=== PATIENT | female | born 1955 | race Caucasian/White ===

== ENCOUNTER 2020-12-05 09:40 | Emergency (ER) | payer OTHER ==
[~2020-12-05] VITALS: Ht 167.6 cm; Wt 36.3 kg
[2020-12-05] MEDS ORDERED: FOLI1 PO (10:49)
[2020-12-05] MEDS ORDERED: MULVITA PO (10:49)
[2020-12-05 10:54] LABS: BASOPHILS ABSOLUTE AUTO 0.04 K/mm3 (0.00-0.23); BASOPHILS PERCENT AUTO 0 % (0-2); EOSINOPHILS PERCENT AUTO 0 % (0-6); Hematocrit 35.6 % (33.0-51.0); Hemoglobin 11.9 g/dL (11.5-16.0); IMMATURE GRAN ABSOLUTE AUTO 0.03 K/mm3 (0.00-0.10); IMMATURE GRAN PERCENT AUTO 0 % (0-1); LYMPHOCYTES ABSOLUTE AUTO 1.07 K/mm3 (0.84-5.20); LYMPHOCYTES PERCENT AUTO 9 % (21-46); MONOCYTES ABSOLUTE AUTO 0.95 K/mm3 (0.16-1.47); MONOCYTES PERCENT AUTO 8 % (4-13); Mean Corpuscular HGB 33.9 pg (26.0-34.0); Mean Corpuscular HGB Conc 33.4 g/dL (31.5-36.5); Mean Corpuscular Volume 101 fL (80-100); Mean Platelet Volume 8.4 fL (9.1-12.4); NEUTROPHILS ABSOLUTE AUTO 9.35 K/mm3 (1.96-9.15); NEUTROPHILS PERCENT AUTO 82 % (41-73); Platelet Count 345 K/mm3 (150-400); RDW Coefficient Variation 14.9 % (11.7-14.2); RDW Standard Deviation 56.3 fL (35.1-46.3); Red Blood Cell Count 3.51 M/mm3 (3.80-5.20); White Blood Cell Count 11.44 K/mm3 (4.00-11.30)
[2020-12-05 11:17] LABS: Alanine Aminotransfer (ALT/SGP 20 U/L (12-78); Albumin, Blood 3.1 g/dL (3.4-5.0); Albumin/Globulin Ratio 0.6 (0.8-1.8); Alk Phos 144 U/L (50-136); Anion Gap 9 mmol/L (6-16); Aspartate Aminotrans (AST/SGOT 23 U/L (12-37); Bilirubin, Total 0.4 mg/dL (0.1-1.0); Blood Urea Nitrogen 14 mg/dL (8-24); Bun/Creatinine Ratio 33.9 (12.0-20.0); CO2, Blood 28 mmol/L (21-32); Calcium, Blood 8.8 mg/dL (8.5-10.1); Chloride, Blood 101 mmol/L (98-108); Creatinine, Blood 0.41 mg/dL (0.40-1.00); Ethanol (Alcohol), Blood, Med <3 mg/dL; Globulin, Blood 5.1 g/dL (2.2-4.0); Glomerular Filtration Rate >60 (60-); Glucose, Blood 103 mg/dL (70-99); Potassium, Blood 3.6 mmol/L (3.5-5.5); Sodium, Blood 138 mmol/L (136-145); Total Protein, Blood 8.2 g/dL (6.4-8.2); Troponin I <0.015 ng/mL (0.000-0.040)
[2020-12-05 11:40] LABS: International Normalized Ratio 0.96; Prothrombin Time Results 10.3 Sec (9.7-11.5)
[2020-12-05 14:47] LABS: Source, Urine Clean Catch
[2020-12-05 14:58] LABS: Appearance, Urine Clear (Clear); Bilirubin, Urine Neg (Neg); Blood, Urine 1+ (Neg); Color, Urine Yellow (P-Yellow); Glucose Qualitative, Urine Neg (Neg); Ketones, Urine Neg (Neg); Leukocyte Esterase, Urine Neg (Neg); Nitrite, Urine Neg (Neg); Protein, Urine 3+ (Neg); Urobilinogen, Urine NORM (Normal)
[2020-12-05 15:22] LABS: Bacteria Few /hpf; Squamous Epithelial Cells Rare /hpf (Few); White Blood Cells, Urine 0-2 /hpf (0-5)
[2020-12-05] MEDS ORDERED: CEPH500 PO (16:09)
== END 2020-12-05 16:25 | disposition home or self-care (01) ==
LOC: ER 09:40
PROVIDERS: Emergency Medicine
DX: S09.90XA Unspecified injury of head, initial encounter (principal); L03.116 Cellulitis of left lower limb; E46 Unspecified protein-calorie malnutrition; F10.10 Alcohol abuse, uncomplicated; F17.200 Nicotine dependence, unspecified, uncomplicated; Z88.0 Allergy status to penicillin; Z88.6 Allergy status to analgesic agent; W19.XXXA Unspecified fall, initial encounter
CPT/HCPCS: 36415; 70450; 71045; 72125; 73620; 80053; 81001; 82140; 83605; 83880; 84484; 85025; 85610; 86140; 87040; 96365; 96375; 99285-25; G0480; J2060; J3370; J7030

== ENCOUNTER 2021-03-06 04:25 | Day surgery (SDC) | payer OTHER ==
[~2021-03-06 04:25] MED LIST: CEPH500 PO; FOLI1 PO; MULVITA PO
[2021-03-07] MEDS ORDERED: MELO7.5 (17:02)
[2021-03-07] MEDS ORDERED: MOBIC15 MG PO (17:58)
== END 2021-03-06 22:48 | disposition home or self-care (01) ==
LOC: WOUND 04:25
DX: L97.522 Non-pressure chronic ulcer of other part of left foot with fat layer exposed (principal); L97.822 Non-pressure chronic ulcer of other part of left lower leg with fat layer exposed; L03.032 Cellulitis of left toe; L03.116 Cellulitis of left lower limb; R53.81 Other malaise; R63.4 Abnormal weight loss; R77.0 Abnormality of albumin; F17.210 Nicotine dependence, cigarettes, uncomplicated; Z68.1 Body mass index [BMI] 19.9 or less, adult
CPT/HCPCS: 87070; 87075; 87147; 87205; A9270; G0463

== ENCOUNTER 2021-03-06 16:47 | Emergency (ER) | payer OTHER ==
[~2021-03-06] VITALS: Ht 170.2 cm; Wt 54.4 kg
[2021-03-06 17:57] LABS: BASOPHILS ABSOLUTE AUTO 0.02 K/mm3 (0.00-0.23); BASOPHILS PERCENT AUTO 0 % (0-2); EOSINOPHILS ABSOLUTE AUTO 0.01 K/mm3 (0.00-0.68); EOSINOPHILS PERCENT AUTO 0 % (0-6); Hemoglobin 13.3 g/dL (11.5-16.0); IMMATURE GRAN ABSOLUTE AUTO 0.06 K/mm3 (0.00-0.10); IMMATURE GRAN PERCENT AUTO 1 % (0-1); LYMPHOCYTES ABSOLUTE AUTO 1.11 K/mm3 (0.84-5.20); LYMPHOCYTES PERCENT AUTO 10 % (21-46); MONOCYTES ABSOLUTE AUTO 0.71 K/mm3 (0.16-1.47); MONOCYTES PERCENT AUTO 7 % (4-13); Mean Corpuscular HGB 36.1 pg (26.0-34.0); Mean Corpuscular Volume 103 fL (80-100); Mean Platelet Volume 8.1 fL (9.1-12.4); NEUTROPHILS ABSOLUTE AUTO 8.86 K/mm3 (1.96-9.15); NEUTROPHILS PERCENT AUTO 82 % (41-73); Platelet Count 413 K/mm3 (150-400); RDW Standard Deviation 68.7 fL (35.1-46.3); Red Blood Cell Count 3.68 M/mm3 (3.80-5.20); White Blood Cell Count 10.77 K/mm3 (4.00-11.30)
[2021-03-06 18:32] LABS: Alanine Aminotransfer (ALT/SGP 33 U/L (12-78); Albumin, Blood 2.5 g/dL (3.4-5.0); Albumin/Globulin Ratio 0.5 (0.8-1.8); Alk Phos 157 U/L (50-136); Anion Gap 19 mmol/L (6-16); Aspartate Aminotrans (AST/SGOT 45 U/L (12-37); Bilirubin, Total 0.4 mg/dL (0.1-1.0); Blood Urea Nitrogen 17 mg/dL (8-24); Bun/Creatinine Ratio 22.9 (12.0-20.0); CO2, Blood 17 mmol/L (21-32); Calcium, Blood 8.8 mg/dL (8.5-10.1); Chloride, Blood 95 mmol/L (98-108); Creatinine, Blood 0.74 mg/dL (0.40-1.00); Globulin, Blood 5.1 g/dL (2.2-4.0); Glomerular Filtration Rate >60 (60-); Glucose, Blood 78 mg/dL (70-99); Potassium, Blood 3.1 mmol/L (3.5-5.5); Sodium, Blood 131 mmol/L (136-145); Total Protein, Blood 7.6 g/dL (6.4-8.2)
[2021-03-07] MEDS ORDERED: MELO7.5 (17:02)
[2021-03-07] MEDS ORDERED: MOBIC15 MG PO (17:58)
== END 2021-03-06 21:08 | disposition left against medical advice (07) ==
LOC: ER 16:47
PROVIDERS: Physician Assistant
DX: Z48.01 Encounter for change or removal of surgical wound dressing (principal); Z53.21 Procedure and treatment not carried out due to patient leaving prior to being seen by health care provider
CPT/HCPCS: 36415; 80053; 85025; 99283

== ENCOUNTER 2021-03-07 12:32 | Inpatient (IN) | payer OTHER ==
[~2021-03-07] VITALS: Ht 165.1 cm; Wt 39.6 kg
[2021-03-07 16:47] LABS: BASOPHILS ABSOLUTE AUTO 0.01 K/mm3 (0.00-0.23); BASOPHILS PERCENT AUTO 0 % (0-2); EOSINOPHILS ABSOLUTE AUTO 0.01 K/mm3 (0.00-0.68); EOSINOPHILS PERCENT AUTO 0 % (0-6); Hematocrit 36.3 % (33.0-51.0); Hemoglobin 12.5 g/dL (11.5-16.0); IMMATURE GRAN ABSOLUTE AUTO 0.05 K/mm3 (0.00-0.10); IMMATURE GRAN PERCENT AUTO 0 % (0-1); LYMPHOCYTES PERCENT AUTO 11 % (21-46); MONOCYTES ABSOLUTE AUTO 0.91 K/mm3 (0.16-1.47); MONOCYTES PERCENT AUTO 8 % (4-13); Mean Corpuscular HGB 36.1 pg (26.0-34.0); Mean Corpuscular HGB Conc 34.4 g/dL (31.5-36.5); Mean Corpuscular Volume 105 fL (80-100); Mean Platelet Volume 8.3 fL (9.1-12.4); NEUTROPHILS ABSOLUTE AUTO 9.02 K/mm3 (1.96-9.15); NEUTROPHILS PERCENT AUTO 81 % (41-73); Platelet Count 343 K/mm3 (150-400); RDW Coefficient Variation 18.7 % (11.7-14.2); RDW Standard Deviation 72.2 fL (35.1-46.3); Red Blood Cell Count 3.46 M/mm3 (3.80-5.20)
[2021-03-07] MEDS ORDERED: MELO7.5 (17:02)
[2021-03-07 17:13] LABS: Alanine Aminotransfer (ALT/SGP 30 U/L (12-78); Albumin, Blood 2.4 g/dL (3.4-5.0); Albumin/Globulin Ratio 0.5 (0.8-1.8); Alk Phos 143 U/L (50-136); Anion Gap 17 mmol/L (6-16); Aspartate Aminotrans (AST/SGOT 36 U/L (12-37); Bilirubin, Total 0.5 mg/dL (0.1-1.0); Blood Urea Nitrogen 17 mg/dL (8-24); Bun/Creatinine Ratio 22.9 (12.0-20.0); CO2, Blood 20 mmol/L (21-32); Calcium, Blood 9.1 mg/dL (8.5-10.1); Chloride, Blood 96 mmol/L (98-108); Creatinine, Blood 0.74 mg/dL (0.40-1.00); Globulin, Blood 5.2 g/dL (2.2-4.0); Glomerular Filtration Rate >60 (60-); Glucose, Blood 68 mg/dL (70-99); Potassium, Blood 3.6 mmol/L (3.5-5.5); Sodium, Blood 133 mmol/L (136-145); Total Protein, Blood 7.6 g/dL (6.4-8.2)
[2021-03-07] MEDS ORDERED: MOBIC15 MG PO (17:58)
--- NOTE | 2021-03-08 05:05 | NUR ---
SUMMARY PT ARRIVED TO FLOOR IN DISCOMFORT. PT WAS CHANGED AND CLEANED. PT LEFT FOOT WAS DRESSED AND HEEL PROTECTORS PLACED ON BOTH HEELS. PT FOLLOWS DIRECTIONS AND IS SOFT SPOKEN. IT IS DIFFICULT TO UNDERSTAND PT WHEN SHE TALKS. PT WAS MEDICATED IN ER FOR PAIN. PT WAS ABLE TO FALL ASLEEP AND HAS BEEN SLEEPING SINCE. PT CURRENTLY SLEEPING AND IN NO DISTRESS. CALL LIGHT IN REACH. BED ALARM ON.
[2021-03-08 05:17] LABS: BASOPHILS ABSOLUTE AUTO 0.03 K/mm3 (0.00-0.23); BASOPHILS PERCENT AUTO 0 % (0-2); EOSINOPHILS ABSOLUTE AUTO 0.01 K/mm3 (0.00-0.68); EOSINOPHILS PERCENT AUTO 0 % (0-6); Hematocrit 35.1 % (33.0-51.0); Hemoglobin 12.2 g/dL (11.5-16.0); IMMATURE GRAN ABSOLUTE AUTO 0.07 K/mm3 (0.00-0.10); IMMATURE GRAN PERCENT AUTO 1 % (0-1); LYMPHOCYTES ABSOLUTE AUTO 0.66 K/mm3 (0.84-5.20); LYMPHOCYTES PERCENT AUTO 5 % (21-46); MONOCYTES ABSOLUTE AUTO 1.31 K/mm3 (0.16-1.47); MONOCYTES PERCENT AUTO 9 % (4-13); Mean Corpuscular HGB 36.1 pg (26.0-34.0); Mean Corpuscular HGB Conc 34.8 g/dL (31.5-36.5); Mean Corpuscular Volume 104 fL (80-100); Mean Platelet Volume 8.2 fL (9.1-12.4); NEUTROPHILS ABSOLUTE AUTO 12.02 K/mm3 (1.96-9.15); NEUTROPHILS PERCENT AUTO 85 % (41-73); Platelet Count 344 K/mm3 (150-400); RDW Coefficient Variation 18.2 % (11.7-14.2); RDW Standard Deviation 69.5 fL (35.1-46.3); Red Blood Cell Count 3.38 M/mm3 (3.80-5.20)
[2021-03-08 05:50] LABS: Anion Gap 11 mmol/L (6-16); Blood Urea Nitrogen 9 mg/dL (8-24); Bun/Creatinine Ratio 18.9 (12.0-20.0); CO2, Blood 24 mmol/L (21-32); Calcium, Blood 7.3 mg/dL (8.5-10.1); Chloride, Blood 103 mmol/L (98-108); Creatinine, Blood 0.48 mg/dL (0.40-1.00); Glomerular Filtration Rate >60 (60-); Glucose, Blood 92 mg/dL (70-99); Potassium, Blood 2.6 mmol/L (3.5-5.5); Sodium, Blood 138 mmol/L (136-145)
--- NOTE | 2021-03-08 15:53 | NUR ---
PT GOING TO FREELANCE DISPLAYER THEN TRANSFER TO PCU. REPORT GIVEN TO PCU NURSE
[2021-03-08 16:41] LABS: SARS-Cov-2 (COVID-19) PCR, MMC NEGATIVE (NEGATIVE)
--- NOTE | 2021-03-08 17:46 | NUR ---
PT TRANSFER TO PCU POST REVASC WITH MCGLAMIR. PT LAYING FLAT AT THIS TIME. RIGHT GROIN SIGHT SOFT AND NONTENDER. NO SIGNS OF BLEEDING. BILATERAL LEG REDNESS WITH SHINY/FLAKY SKIN. PINK BOOTS USED TO KEEP HEELS OFF BED. LEFT LOWER EXTREMITY WOUND AND ULCERATION TO LEFT TOES. ON ROOM AIR SATING ABOVE 94%. TELE SHOWING SINUS TACH WITH HR 109. VITAL SIGNS STABLE. POST OP VITAL SIGN SCHEDULE IN PLACE. BOWEL TONES HEARD. SKIN PALE. CLINIMIX AND LIPIDS INFUSING WELL POTASSIUM. SPEECH EVAL AND ULTRASOUND OF ABDOMEN ORDERED. CALL LIGHT IN REACH. BED ALARM ON. PT VERY SOFT SPOKEN. NPO AT THIS TIME.
--- NOTE | 2021-03-08 18:05 | NUR ---
PT COUGHING WITH SIPS OF WATER. SPEECH EVAL PLACED. NPO TILL SPEECH WELL SURGERY ON 03/09.
--- NOTE | 2021-03-08 18:18 | NUR ---
DR. ANNE IN TO SEE PATIENT. PLAN FOR SURGERY TONIGHT. NPO AT THIS TIME. VITAL SIGNS STABLE. WILL CONTINUE TO MONITOR.
--- NOTE | 2021-03-08 19:33 | NUR ---
PT TAKEN TO OR AT 1900 DURING CHANGE OF SHIFT.
--- NOTE | 2021-03-08 19:55 | NUR ---
03/08/211954 Cuca More 1GRAM IVPB GIVEN BY DR CLIFFORD AT 1945.
--- NOTE | 2021-03-08 20:44 | NUR ---
PT TO ROOM FROM OR AT APPROX 2024. OR STAFF IN ROOM FOR RECOVERY.
--- NOTE | 2021-03-08 21:22 | NUR ---
PT UPDATE PT IS CURRENTLY NPO D/T ASPIRATION RISK, AWAITING SPEECH EVAL. CALL PLACED TO MD GARCIA. MD GARCIA W/ ORDERS FOR IV FENTANYL Q4H. SEE EMAR.
[2021-03-09 04:39] LABS: BASOPHILS ABSOLUTE AUTO 0.02 K/mm3 (0.00-0.23); BASOPHILS PERCENT AUTO 0 % (0-2); EOSINOPHILS PERCENT AUTO 0 % (0-6); Hematocrit 30.9 % (33.0-51.0); Hemoglobin 10.8 g/dL (11.5-16.0); IMMATURE GRAN ABSOLUTE AUTO 0.22 K/mm3 (0.00-0.10); IMMATURE GRAN PERCENT AUTO 1 % (0-1); LYMPHOCYTES ABSOLUTE AUTO 0.27 K/mm3 (0.84-5.20); LYMPHOCYTES PERCENT AUTO 1 % (21-46); MONOCYTES ABSOLUTE AUTO 0.16 K/mm3 (0.16-1.47); MONOCYTES PERCENT AUTO 1 % (4-13); Mean Corpuscular HGB 36.4 pg (26.0-34.0); Mean Corpuscular Volume 104 fL (80-100); Mean Platelet Volume 8.5 fL (9.1-12.4); NEUTROPHILS ABSOLUTE AUTO 20.57 K/mm3 (1.96-9.15); NEUTROPHILS PERCENT AUTO 97 % (41-73); Platelet Count 346 K/mm3 (150-400); RDW Coefficient Variation 18.4 % (11.7-14.2); RDW Standard Deviation 69.5 fL (35.1-46.3); Red Blood Cell Count 2.97 M/mm3 (3.80-5.20); White Blood Cell Count 21.24 K/mm3 (4.00-11.30)
[2021-03-09 04:54] LABS: Phosphorus, Blood 2.2 mg/dL (2.5-4.9); Triglycerides 40 mg/dL (30-160)
--- NOTE | 2021-03-09 05:52 | NUR ---
SHIFT SUMMARY PT ALERT, ORIENTED X3. SP02>92% ON 1L NC. TELEMETRY READS SR, HR 80'S. PT C/O OF 8/10 BACK AND L FOOT PAIN, MEDICATING PER EMAR. HEATING PAD PLACED UNDER BACK. PT WENT TO OR THIS SHIFT TO HAVE L FOOT I&D, RECOVERED IN ROOM WITH POST OP STAFF. VSS. PT HAS R GROIN SITE. SITE IS C/D/I, NO BLEEDING, BRUISING, OR HEMATOMA. PT INCONTINENT, C/D ATTENDS IN PLACE. LINEN CHANGED X1 THIS SHIFT. CLINIMIX INFUSING PER EMAR. PT SLEPT OFF AND ON T/O NIGHT. CALL LIGHTIN REACH. WILL GIVE REPORT TO ONCOMING NURSE.
--- NOTE | 2021-03-09 17:31 | NUR ---
SHIFT SUMMARY PT ALERT AND ORIENTED X 4. SOFT SPOKEN, DIFFICULT TO UNDERSTAND AT TIMES. HR STABLE. BP STABLE. MAP ABOVE 65. OXYGEN SATURATION MAINTAINED ABOVE 92% ON RA. PT REPORTS PAIN IN LLE. MEDICATED PER EMAR. PT REFUSING Q 2 TURNS AT TIMES. MEPELX IN PLACE ON COCCYX FOR PROTECTION. WOUND VAC IN PLACE. ORDERS FOR DRESSING CHANGE ON 03/10. DRESSING C/D/I. DEPENDS IN PLACE FOR INCONTINENCE. ORDERS FOR PT TO HAVE BEER WITH DINNER TO PREVENT ETOH WITHDRAWL. NO WITHDRAWL SYMPTOMS AT THIS POINT. WILL CONT TO MONITOR UNTIL REPORT GIVEN TO NIGHTSHIFT RN.
[2021-03-10 04:46] LABS: BASOPHILS ABSOLUTE AUTO 0.05 K/mm3 (0.00-0.23); BASOPHILS PERCENT AUTO 0 % (0-2); EOSINOPHILS ABSOLUTE AUTO 0.02 K/mm3 (0.00-0.68); EOSINOPHILS PERCENT AUTO 0 % (0-6); Hematocrit 28.7 % (33.0-51.0); Hemoglobin 10.1 g/dL (11.5-16.0); IMMATURE GRAN ABSOLUTE AUTO 0.65 K/mm3 (0.00-0.10); IMMATURE GRAN PERCENT AUTO 3 % (0-1); LYMPHOCYTES ABSOLUTE AUTO 1.41 K/mm3 (0.84-5.20); LYMPHOCYTES PERCENT AUTO 6 % (21-46); MONOCYTES PERCENT AUTO 6 % (4-13); Mean Corpuscular HGB 36.7 pg (26.0-34.0); Mean Corpuscular HGB Conc 35.2 g/dL (31.5-36.5); Mean Corpuscular Volume 104 fL (80-100); Mean Platelet Volume 8.5 fL (9.1-12.4); NEUTROPHILS ABSOLUTE AUTO 21.51 K/mm3 (1.96-9.15); NEUTROPHILS PERCENT AUTO 85 % (41-73); Platelet Count 322 K/mm3 (150-400); RDW Coefficient Variation 18.5 % (11.7-14.2); RDW Standard Deviation 69.7 fL (35.1-46.3); Red Blood Cell Count 2.75 M/mm3 (3.80-5.20); White Blood Cell Count 25.24 K/mm3 (4.00-11.30)
--- NOTE | 2021-03-10 05:33 | NUR ---
SHIFT SUMMARY PT IS ALERT AND ORIENTED. SLOW TO RESPOND AND HAS A LOW VOICE. VITALS ARE STABLE AND ON ROOM AIR. DENIES CHEST PAIN OR SOB. PT HAS HAD NO ACUTE CHANGES THROUGH THE NIGHT. PT WAS INFORMED OF HAVING PAIN MEDICATION ORDERS AND IF NEED TO ASK, PT REFUSED NEEDING PAIN MEDICATION. STS THAT SHE WILL ASK WHEN NEEDED. PT HAS LOOSE STOOLS AND IS INCONT OF BM AND URINE; ATTENDS IN PLACE. INFUSING MEDS PER EMAR. PT IS ABLE TO COMMUNICATE PROPERLY.
[2021-03-10 09:33] LABS: Anion Gap 5 mmol/L (6-16); Blood Urea Nitrogen 12 mg/dL (8-24); Bun/Creatinine Ratio 29.6 (12.0-20.0); CO2, Blood 30 mmol/L (21-32); Calcium, Blood 7.5 mg/dL (8.5-10.1); Chloride, Blood 99 mmol/L (98-108); Creatinine, Blood 0.41 mg/dL (0.40-1.00); Glomerular Filtration Rate >60 (60-); Glucose, Blood 110 mg/dL (70-99); Potassium, Blood 3.2 mmol/L (3.5-5.5); Sodium, Blood 134 mmol/L (136-145)
--- NOTE | 2021-03-10 18:45 | NUR ---
SHIFT SUMMARY PT SPENT THE DAY RESTING. PT HAD HER DRESSING CHANGED ON THE WOUND VAC ON THE LEFT LEG AND FOOT TODAY. VS STABLE. PT ON RA. PT GIVEN PAIN MEDICATION FOR THE WOUND VAC CHANGE. PT CONTINUES TO HAVE A LESSENED APPETITE AND HAS IV SUPPLEMENTATION. PT IS VERY SOFT SPOKEN AND IS OCCASSIONALLY FORGETFUL, SHE WILL ASK THE SAME QUESTIONS MULTIPLE TIMES. PT IS RESTING IN BED AT THIS TIME
[2021-03-10 21:49] LABS: Creatinine, Blood 0.47 mg/dL (0.40-1.00); Vancomycin, Trough 3.3 ug/mL (5.0-10.0)
[2021-03-11 03:54] LABS: BASOPHILS ABSOLUTE AUTO 0.05 K/mm3 (0.00-0.23); BASOPHILS PERCENT AUTO 0 % (0-2); EOSINOPHILS ABSOLUTE AUTO 0.05 K/mm3 (0.00-0.68); EOSINOPHILS PERCENT AUTO 0 % (0-6); Hematocrit 29.2 % (33.0-51.0); IMMATURE GRAN ABSOLUTE AUTO 0.24 K/mm3 (0.00-0.10); IMMATURE GRAN PERCENT AUTO 1 % (0-1); LYMPHOCYTES ABSOLUTE AUTO 1.37 K/mm3 (0.84-5.20); LYMPHOCYTES PERCENT AUTO 6 % (21-46); MONOCYTES ABSOLUTE AUTO 1.63 K/mm3 (0.16-1.47); MONOCYTES PERCENT AUTO 7 % (4-13); Mean Corpuscular HGB Conc 34.2 g/dL (31.5-36.5); Mean Corpuscular Volume 105 fL (80-100); Mean Platelet Volume 8.4 fL (9.1-12.4); NEUTROPHILS ABSOLUTE AUTO 18.65 K/mm3 (1.96-9.15); NEUTROPHILS PERCENT AUTO 85 % (41-73); Platelet Count 329 K/mm3 (150-400); RDW Coefficient Variation 18.5 % (11.7-14.2); RDW Standard Deviation 71.3 fL (35.1-46.3); Red Blood Cell Count 2.78 M/mm3 (3.80-5.20); White Blood Cell Count 21.99 K/mm3 (4.00-11.30)
[2021-03-11 04:17] LABS: Anion Gap 5 mmol/L (6-16); Blood Urea Nitrogen 10 mg/dL (8-24); Bun/Creatinine Ratio 24.8 (12.0-20.0); CO2, Blood 33 mmol/L (21-32); Chloride, Blood 96 mmol/L (98-108); Glomerular Filtration Rate >60 (60-); Glucose, Blood 99 mg/dL (70-99); Magnesium, Blood 1.4 mg/dL (1.6-2.4); Potassium, Blood 3.4 mmol/L (3.5-5.5); Sodium, Blood 134 mmol/L (136-145)
--- NOTE | 2021-03-11 05:18 | NUR ---
SHIFT SUMMARY PT IS ALERT AND ORIENTED. DENIES CHEST PAIN OR SOB. NO ACUTE CHANGES T/O THE NIGHT. VITALS ARE STABLE AND ON ROOM AIR. PT HAS BEEN PAINFUL T/O THE NIGHT. WOUND VAC IS IN PLACE AND WOUND CARE WAS PERFORMED DURING DAY SHIFT ON 03/10. PT IS INCONT AT TIMES OR USES BEDPAN, WITH ATTENDS IN PLACE. MEDS INFUSING PER ORDER. CALL LIGHT IS WITHIN REACH.
[2021-03-11 10:26] LABS: Anion Gap 5 mmol/L (6-16); Blood Urea Nitrogen 10 mg/dL (8-24); Bun/Creatinine Ratio 24.2 (12.0-20.0); CO2, Blood 32 mmol/L (21-32); Calcium, Blood 7.1 mg/dL (8.5-10.1); Chloride, Blood 96 mmol/L (98-108); Creatinine, Blood 0.41 mg/dL (0.40-1.00); Glomerular Filtration Rate >60 (60-); Glucose, Blood 92 mg/dL (70-99); Potassium, Blood 3.9 mmol/L (3.5-5.5); Sodium, Blood 133 mmol/L (136-145)
--- NOTE | 2021-03-11 12:50 | NUR ---
TRANSFER TO MEDICAL FLOOR PT WAS TRANSFERRED TO MEDICAL FLOOR AT APPROXIMATELY 1245. PT WAS MOVED VIA BED WITH CLINIMIX AND FAT EMULSION RUNNING. PT LEFT ON RA, VS STABLE AND ALL PERSONAL BELONGINGS WITH HER. REPORT WAS GIVEN TO XIMENA GOMEZ
--- NOTE | 2021-03-11 18:27 | NUR ---
1240 PT ARRIVED FROM MEDICAL FLOOR FROM PCU VIA BED, BEDS SWAPPED OUT. PT REPORTS LLE AND NECK PAIN ONCE THIS SHIFT, PAIN MANAGED WELL WITH CURRENT ORDERS. PT DENIES SOB, N/V. PT USES BEDPAN AND HAS BEEN CONTINENT. WOUND VAC DRESSING PATENT, DUE TO BE CHANGED NEXT TOMORROW. SISTER IN TO VISIT THIS AFTERNOON AND AGREES WITH PLAN OF CARE. NO OTHER CHANGES OR CONCERNS.
--- NOTE | 2021-03-12 06:45 | NUR ---
SUMMARY PT HAD NO NEW ISSUES. PT PAIN TX PER EMAR. PT HAS BEEN VOIDING WELL. PT IS TAKING IN PO FLUIDS OK. PT SLEPT OFF AND ON. PT CURRENTLY SLEEPING IN NO DISTRESS. CALL LIGHT IN REACH AND BED ALARM ON.
[2021-03-12 09:59] LABS: Vancomycin, Trough 9.9 ug/mL (5.0-10.0)
[2021-03-12 10:22] LABS: BASOPHILS ABSOLUTE AUTO 0.04 K/mm3 (0.00-0.23); BASOPHILS PERCENT AUTO 0 % (0-2); EOSINOPHILS ABSOLUTE AUTO 0.03 K/mm3 (0.00-0.68); EOSINOPHILS PERCENT AUTO 0 % (0-6); Hematocrit 32.3 % (33.0-51.0); Hemoglobin 10.9 g/dL (11.5-16.0); IMMATURE GRAN ABSOLUTE AUTO 0.19 K/mm3 (0.00-0.10); IMMATURE GRAN PERCENT AUTO 1 % (0-1); LYMPHOCYTES ABSOLUTE AUTO 0.76 K/mm3 (0.84-5.20); LYMPHOCYTES PERCENT AUTO 5 % (21-46); MONOCYTES ABSOLUTE AUTO 1.38 K/mm3 (0.16-1.47); MONOCYTES PERCENT AUTO 10 % (4-13); Mean Corpuscular HGB 35.7 pg (26.0-34.0); Mean Corpuscular HGB Conc 33.7 g/dL (31.5-36.5); Mean Corpuscular Volume 106 fL (80-100); Mean Platelet Volume 8.6 fL (9.1-12.4); NEUTROPHILS PERCENT AUTO 83 % (41-73); Platelet Count 375 K/mm3 (150-400); RDW Coefficient Variation 18.5 % (11.7-14.2); RDW Standard Deviation 71.9 fL (35.1-46.3); Red Blood Cell Count 3.05 M/mm3 (3.80-5.20)
[2021-03-12 10:32] LABS: Anion Gap 7 mmol/L (6-16); Blood Urea Nitrogen 11 mg/dL (8-24); Bun/Creatinine Ratio 23.7 (12.0-20.0); CO2, Blood 33 mmol/L (21-32); Chloride, Blood 95 mmol/L (98-108); Creatinine, Blood 0.47 mg/dL (0.40-1.00); Glomerular Filtration Rate >60 (60-); Glucose, Blood 111 mg/dL (70-99); Potassium, Blood 3.7 mmol/L (3.5-5.5); Sodium, Blood 135 mmol/L (136-145)
--- NOTE | 2021-03-12 16:45 | NUR ---
03/12/21- CALLED [facility] IN [place], SHE IS NOT ABLE TO TAKE HOSPICE PT AT THIS TIME. CALLED [facility] IN [place], SHE IS NOT ABLE TO TAKE HOSPICE PT. CALLED AND LMOM FOR [facility] TO SEE IF THEY HAVE ANY HOSPICE BEDS AT EITHER FACILITY HERE IN [place]. -ROS
--- NOTE | 2021-03-12 17:36 | NUR ---
Spiritual care note: pt appears frail and a bit confused. She was very concerned with spill on bedside table and relaxed only after I had cleaned it up. She does not appear to grasp her physical fraility and was unaware of POC going forward. We chatted happily. She is non-uatsdin, but appeared to enjoy encouragement and compassionate companionship. I will remain available.
--- NOTE | 2021-03-12 18:06 | NUR ---
SHIFT SUMMARY PT IS AOX3-4. PT MEDICATED FOR PAIN X2. PT DENIES N/V, SOB. PT REMAINS IN BED THIS SHIFT WITH FREQUENT REPOSITIONING. PT APPETITE IS MODERATE. PT C/O CONSTIPATTION WITH DISTENDED ABD SO THIS RN GAVE PT A SUPPOSITORY PER EMAR. THIS RN DRESSED PT'S TOE WOUND AND COMPLETED A WOUND VAC DRESSING CHANGE WITH UPDATED IMAGES IN THE CHART. NO PROCEDURES DONE THIS SHIFT. PT'S SISTER WAS IN TO VISIT BRIEFLY THIS NIA. PLAN IS FOR PLACEMENT. PT IS IN BED, CALL LIGHT IN REACH, LOW POSITION,.
[2021-03-13 04:37] LABS: BASOPHILS ABSOLUTE AUTO 0.04 K/mm3 (0.00-0.23); BASOPHILS PERCENT AUTO 0 % (0-2); EOSINOPHILS ABSOLUTE AUTO 0.03 K/mm3 (0.00-0.68); EOSINOPHILS PERCENT AUTO 0 % (0-6); Hematocrit 31.1 % (33.0-51.0); Hemoglobin 10.4 g/dL (11.5-16.0); IMMATURE GRAN ABSOLUTE AUTO 0.17 K/mm3 (0.00-0.10); IMMATURE GRAN PERCENT AUTO 1 % (0-1); LYMPHOCYTES ABSOLUTE AUTO 0.74 K/mm3 (0.84-5.20); LYMPHOCYTES PERCENT AUTO 6 % (21-46); MONOCYTES ABSOLUTE AUTO 1.61 K/mm3 (0.16-1.47); MONOCYTES PERCENT AUTO 12 % (4-13); Mean Corpuscular HGB 34.9 pg (26.0-34.0); Mean Corpuscular HGB Conc 33.4 g/dL (31.5-36.5); Mean Corpuscular Volume 104 fL (80-100); Mean Platelet Volume 8.8 fL (9.1-12.4); NEUTROPHILS PERCENT AUTO 80 % (41-73); Platelet Count 398 K/mm3 (150-400); RDW Coefficient Variation 17.7 % (11.7-14.2); RDW Standard Deviation 68.2 fL (35.1-46.3); Red Blood Cell Count 2.98 M/mm3 (3.80-5.20); White Blood Cell Count 12.99 K/mm3 (4.00-11.30)
[2021-03-13 04:58] LABS: Alanine Aminotransfer (ALT/SGP 33 U/L (12-78); Albumin, Blood 1.6 g/dL (3.4-5.0); Albumin/Globulin Ratio 0.3 (0.8-1.8); Alk Phos 112 U/L (50-136); Anion Gap 4 mmol/L (6-16); Aspartate Aminotrans (AST/SGOT 49 U/L (12-37); Bilirubin, Total 0.1 mg/dL (0.1-1.0); Blood Urea Nitrogen 11 mg/dL (8-24); Bun/Creatinine Ratio 20.3 (12.0-20.0); CO2, Blood 36 mmol/L (21-32); Calcium, Blood 8.3 mg/dL (8.5-10.1); Chloride, Blood 94 mmol/L (98-108); Creatinine, Blood 0.54 mg/dL (0.40-1.00); Globulin, Blood 5.1 g/dL (2.2-4.0); Glomerular Filtration Rate >60 (60-); Glucose, Blood 108 mg/dL (70-99); Potassium, Blood 4.1 mmol/L (3.5-5.5); Sodium, Blood 134 mmol/L (136-145); Total Protein, Blood 6.7 g/dL (6.4-8.2)
--- NOTE | 2021-03-13 06:29 | NUR ---
SUMMARY PT C/O ABD DISCOMFORT AND CONSTIPATION. PT GIVEN MOM LAST NIGHT. PT REPORTS CONTINUED PAIN IN LEG AND BACK. PT WOUND VAC IN PLACE AND DRESSING C/D/I. PT DOES DESAT WHILE SLEEPING AND O2 VIA NC @ LPM KEPT SPO2 >90%. CALL LIGHT IN REACH AND BED ALARM ON.
[2021-03-13 11:45] LABS: Source, Urine Catheter
--- NOTE | 2021-03-13 12:28 | NUR ---
PATIENT IS ALERT AND ORIENTED. SHE IS UNDER THE IMPRESSION THAT SHE IS CAPABLE OF GOING HOME AND TAKING CARE OF HERSELF. WHEN HER SISTER DISAGREED WITH THE PATIENT, SHE BECAME USPET. A MELENDEZ WAS PLACED THIS MORNING, UA SENT. PATIENT IS LAYING IN BED COMFORTABLY AT THE TIME
[2021-03-13 12:38] LABS: Appearance, Urine Clear (Clear); Bilirubin, Urine Neg (Neg); Blood, Urine Neg (Neg); Glucose Qualitative, Urine Neg (Neg); Ketones, Urine Neg (Neg); Leukocyte Esterase, Urine Neg (Neg); Nitrite, Urine Neg (Neg); Protein, Urine Neg (Neg); Urobilinogen, Urine NORM (Normal)
--- NOTE | 2021-03-13 13:00 | NUR ---
[facility] comfort care and family conference from 11 am to noon today. Result was that pt was placed on comfort care per sister/primary cg. Pt reports leg and abd pain. Abd pain found to be from greatly distended bladder due to urinary retention and sadler catheter was placed. Pt is severely cachectic. Her diet is being advanced as tolerated/desired for comfort. Results of family conference called to and VO obtained and entered for comfort care. Dental Mold Maker visit requested for support to sister. Much time spent listening and supporting her today in meeting with Laura of [facility] and myself. Sister has multiple family members she is caring for due to physical and mental health issues. She has come to terms and accepts that she cannot cont to care for pt in her home. She is agreeable to placement and hospice support anywhere Laura can find appropriate and safe placement. She would prefer [facility] but has brothers in [place] and would be agreeable to placement in a facility anywhere between [place] and [place]. Laura will maintain contact with Sirena re: d/c planning. Sirena was given my card to contact for support or questions re: s/s and pt's care also. They have had [facility] home health and were happy with their services and request [facility] on d/c.
[2021-03-13 13:16] LABS: Color, Urine Pale Yellow (P-Yellow)
--- NOTE | 2021-03-13 17:16 | NUR ---
PATIENT IS ALERT. SHE IS CONFUSED. C/O PAIN THIS MORNING AND DISTENDED ABDOMEN, ABDOMINAL XRAY SHOWED DISTENDED BLADDER. DR. GARCIAS ORDERED A MELENDEZ AND IT WAS PLACED. MELENDEZ IS PATENT. COMFORT CARE ORDERED PLACED TODAY. WILL CONTINUE TO MONITOR
--- NOTE | 2021-03-13 19:01 | NUR ---
Spiritual care note: Provided education counselor and emotional support to pt's sister, Shahnaz, at bedside. Pt was easily irritated and began to argue nonsense with her sister. Shahnaz was appreciaitve of emotional affirmation. I encouraged self-care as Shahnaz has a great deal going on at home. Shahnaz left, and I stayed with pt until she stoped arguing with her sister (who was no longer present.) Pt insists she can care for herself at home. I will remain available.
--- NOTE | 2021-03-14 04:25 | NUR ---
SHIFT SUMMARY PT HAD AN UNEVENTFUL NIGHT. WOUND VAC TO LEFT LEG REMAINED INTACT. PT DECONDITIONED, CACHECTIC. SPEAKS SOFTLY. NIBBLED ON SMALL AMOUNTS OF A SANDWICH AND A FRUIT CUP. SLEEPS WITH NECK KINKED TO THE LEFT SIDE. ATTEMPTED MULTIPLE TIMES TO REPOSITION BUT PT CONTINUED TO MOVE HERSELF INTO THAT POSITION. PT DENIED ANY PAIN. SLEPT THROUGH MOST OF THE NIGHT. MELENDEZ CATHETER IN PLACE. PATENT AND DRAINING LIGHT YELLOW URINE. PT RESTING COMFORTABLY AT THIS TIME. WILL CONTINUE TO MONITOR.
--- NOTE | 2021-03-14 13:05 | NUR ---
[facility] comfort care visit - Pt picking at breakfast tray when I arrived this am around 9. She had eaten about half of cream of wheat and had drank half of each beer on her table. I helped her remove what she wanted for later. She was tucking jam and fruit in covers and kleanex box. She held her head crooked to one side like she could not fully hold head up. She did not report pain or demonstrate nonverbal painful behaviours. She was calm and conversant, pleasant. She reported she was going home soon, which is not correct but I did not disagree with her. TRay with most of her food on it removed. She kept the beers, nutritional supplemental beverage, banana and cups of ice. Case conferenced with pt's Dr dooley.
--- NOTE | 2021-03-14 15:31 | NUR ---
PATIENT CONTINUES ON COMFORT CARE. ABLE TO MAKE NEEDS KNOWN. WOUND VAC TO Andrea FAY DISCONTINUED; NON-ADHERANT DRESSING CHANGES IN PLACE. MEDICATED PATIENT ONCE TODAY AFTER REMOVAL OF THE WOUND VAC DRESSING IT WAS VERY PAINFUL; MEDICATION WAS EFFECTIVE. PATIENT RECIEVES BEER WITH HER MEAL TRAYS AND SIPS ON IT THROUGHOUT THE DAY. POWERGLIDE DISCONTINUED IT WAS LEAKING. PATIENT IS RESTING IN HER BED. SISTER VISITING AT BEDSIDE. CALL LIGHT IS WITHIN REACH.
--- NOTE | 2021-03-14 18:43 | NUR ---
Spiritual care note: Jazzmine appeared even more frail today, but was still quite fiesty and confused. I helped her clean and arrange her bedside table. This seemed to calm her. She does not appear concerned about the future today. She drifted in and out of sleep. No family present. She responded well to assurance of care and attention. I will remain available.
--- NOTE | 2021-03-15 04:52 | NUR ---
PLASTIC FINISHER SUMMARY PT SLEPT WELL TONIGHT. MEDICATED ONCE TONIGHT FOR NECK AND L FOOT PAIN. PT ABLE TO MAKE NEES KNOWN. PT COMPLIANED OF CONSTIPATION IN THE NIGHT. MIRLAX GIVEN. ATTENDS IN PLACE. BED ALARM ON, CALL LIGHT WITHIN REACH. WILL CONTINUE TO MONITOR.
--- NOTE | 2021-03-15 10:42 | NUR ---
CC ASSESSMENT: PT IN NO APPARENT DISTRESS / NO C/O PAIN. NO DYSPNEA/SBO/SECRETIONS. NO FAMILY PRESENT. MELENDEZ PATENT & DRAINING. WCTM.
--- NOTE | 2021-03-15 10:43 | NUR ---
CC ASSESSMENT: MEDICATED FOR GENERALIZED PAIN PER EMAR. NO DYSPNEA/SOB/SECRETIONS. NO FAMILY PRESENT. WCTM.
--- NOTE | 2021-03-15 14:51 | NUR ---
CC ASSESSMENT: MEDICATED FOR PAIN PER EMAR. NO DYSPNEA/SOB/SECRETIONS. NO FAMILY PRESENT. WCTM.
--- NOTE | 2021-03-15 14:54 | NUR ---
CC ASSESSMENT: PT IN NO APPARENT DISTRESS / NO C/O PAIN. NO DYSPNEA/SOB/SECRETIONS. NO FAMILY PRESENT. WCTM.
--- NOTE | 2021-03-15 16:15 | NUR ---
Visit made with pt today; she is alert and pleasant. She does know where she is today, but she does talk very quickly and some things she says are non-sensical. Her head bobs at all times; appears she has slight difficulty holding it up straight. She reports pain in L foot "ok" at a 4 at this time. She tells me she is planning to return to her sister's home, but soon after she states she thinks she might be going to a group home instead, stating,"I just need to help out around the house and she'll be happy I'm there. Per notes, pt will not be returning to her sister's home. I attempted to make conversation with pt, but she continued speaking quickly in a quiet tone, some sensical and some non-sensical sentences. I asked if she would like to visit again tomorrow; she states she would. Plan to return tomorrow.
--- NOTE | 2021-03-15 18:23 | NUR ---
CC ASSESSMENT: NO C/O PAIN. NO DYSPNEA/SOB/SECRETIONS. WCTM.
--- NOTE | 2021-03-15 18:24 | NUR ---
CC ASSESSMENT: PT IN NO APPARENT DISTRESS/ NO C/O PAIN. NO DYSPNEA/SOB/SECRETIONS. NO FAMILY PRESENT. MELENDEZ PATENT & DRAINING. WCTM.
--- NOTE | 2021-03-15 18:27 | NUR ---
SHIFT SUMMARY: NO ACUTE EVENTS TO REPORT THIS SHIFT. PT A&O; CALM AND COOPERATIVE WITH CARE. OCC NONSENSENSICAL SPEECH. MEDICATED FOR GENERALIZED PAIN PER EMAR. WOUND CARE (DR MENARD) TO L FOOT. MELENDEZ PATENT & DRAINING. COMFORT CARE MEASURES. WCTM.
--- NOTE | 2021-03-16 04:27 | NUR ---
GEOGRAPHIC AREA INTELLIGENCE OFFICER SUMMARY PT SLEPT WELL TONIGHT. MEDICATED ONCE FOR PAIN TONIGHT. ABLE TO MAKE NEEDS KNOWN. USES CALL LIGHT APPROPRIATELY, SOFT SPOKEN. NO SOB NOTED. MELENDEZ PATENT AND DRAINING TO GRAVITY. BED ALARM ON, CALL LIGHT WITHIN REACH. WILL CONTINUE TO MONITOR.
--- NOTE | 2021-03-16 09:20 | NUR ---
CC ASSESSMENT: NO C/O PAIN. NO DYSPNEA/SOB/SECRETIONS. NO FAMILY PRESENT. MELENDEZ PATENT & DRAINING. WCTM.
--- NOTE | 2021-03-16 11:54 | NUR ---
CC ASSESSMENT: NO C/O PAIN. NO DYSPNEA/SOB/SECRETIONS. NO FAMILY PRESENT. WCTM.
--- NOTE | 2021-03-16 12:43 | NUR ---
CC ASSESSMENT: MEDICATED FOR PAIN PER EMAR. NO DYSPNEA/SOB/SECRETIONS. NO FAMILY PRESENT. WCTM.
--- NOTE | 2021-03-16 14:14 | NUR ---
03/16/21- per chart review with Dr. Chan, pt will be staying through the weekend and until sister has worked through [employer] process to get long-term care benefit to pay for placement. -bernarda
--- NOTE | 2021-03-16 17:28 | NUR ---
NO CHANGES TO PT'S CARE PLAN AT THIS TIME. SHE WAS PLEASANT AT OUR VISIT TODAY, BUT THE VISIT WAS SHORT SHE FELL ASLEEP.
--- NOTE | 2021-03-16 17:33 | NUR ---
CC ASSESSMENT: NO C/O PAIN. NO DYSPNEA/SOB/SECRETIONS. NO FAMILY PRESENT. WCTM.
--- NOTE | 2021-03-16 17:33 | NUR ---
CC ASSESSMENT: NO C/O PAIN. NO DYSPNEA/SOB/SECRETIONS. NO FAMILY PRESENT. MELENDEZ PATENT & DRAINING TO GRAVITY. WCTM.
--- NOTE | 2021-03-16 18:25 | NUR ---
CC ASSESSMENT: NO C/O PAIN/ NAUSEA. NO DYSPNEA/SOB/SECRETIONS. MELENDEZ PATENT & DRAINING. WCTM.
--- NOTE | 2021-03-16 18:35 | NUR ---
SHIFT SUMMARY: NO ACUTE EVENTS TO REPORT THIS SHIFT. PT A&O; CALM AND COOPERATIVE WITH CARE. MEDICATED FOR PAIN PER EMAR; NO C/O NAUSEA. NO RESPIRATORY DISTRESS NOTED. MELENDEZ IN PLACE; PATENT & DRAINING. WOUND CARE TO LEFT FOOT & FAY. COMFORT CARE MEASURES CONTINUING. WCTM.
--- NOTE | 2021-03-17 06:00 | NUR ---
SHIFT SUMMARY NO ACUTE CHANGES THIS SHIFT, MEDICATED 2X FOR PAIN, SLEPT T/O THE NIGHT, ABLE TO MAKE NEEDS KNOWN, CALL LIGHT IN REACH, BED ALARM CATIVE, WILL CONT TO MONITOR UNTIL REPORT GIVEN TO DAY RN.
--- NOTE | 2021-03-17 17:32 | NUR ---
SHIFT SUMMARY PT IS A COMFORT CARE PT; MEDICATED PER EMAR FOR PAIN. WOUND DRESSING CHANGED TODAY AND PT WAS VERY PAINFUL. DENIES SOB OR CP. FAMILY WAS AT BEDSIDE THIS AFTERNOON. BED IS IN THE LOWEST POSITION AND CALL LIGHT WITHIN REACH
--- NOTE | 2021-03-18 14:28 | NUR ---
PT RESTING IN BED QUIET WITH EYES CLOSED, APPEARS COMFORTABLE.
--- NOTE | 2021-03-18 16:07 | NUR ---
Visit made to pt today. She was drinking her beer with lunch. She reports pain is controlled at this time, at 4/10. She attempts to start conversations, but will drift off mid sentence and fall asleep, or just trail off and begin another story, usually about her sister's kids when they were younger. Her left foot is wrapped due to wet gangrene. Dressing w/d/i. No changes to care plan at this time. Placement seems to be the biggest issue at this time.
--- NOTE | 2021-03-18 19:53 | NUR ---
SUMM- PT BEDRIDDEN, MELENDEZ CATH. MEDICATED PRN ROXINOL FOR PAIN. BED BATH AFTER LUNCH AND DRESSING CHANGE DONE 1400 TO LOWER EXT NECROTIC WOUNDS. MEDICATED BEFORE BOTH PROCEDURES AND PT WAS CONTINUALLY CRYING SINCE THE DRESING CHANGE. CONT MEDICATING WITH ROXONOL AND ATIVAN 1MG UNTIL 1800 PT FINALLY CALMED AND FELL ASLEEP. REPORTED TO KENYATTA BUENO.
--- NOTE | 2021-03-19 05:44 | NUR ---
SHIFT SUMMARY PT CONTINUES ON COMFORT CARE, SHE HAS BEEN SLEEPY MOST OF THE SHIFT, WOULD NOT STAY AWAKE LONG ENOUGH IN THE BEGINNING OF THE SHIFT TO SAFELY TAKE HER 2100 MEDICATIONS, THUS THEY WERE HELD. PT HAD A ROUGH END OF THE DAY AFTER DRESSING CHANGES DURING DAYSHIFT. PT HAS BEEN ABLE TO REST MOST OF NOC SHIFT UNDISTURBED, SHE HAS NOT COMPLAINED OF ANY PAIN, AND APPEARS COMFORTABLE T/O SHIFT. PT TAKING IN SMALL AMOUNTS OF PO LIQUIDS, DRINKING SMALL SIPS AT A TIME. PT SPILLED LIQUIDS FROM HER BEDSIDE TABLE ALL OVER HER LINENS THIS SHIFT REQUIRING LINEN CHANGES. MELENDEZ IN PLACE PATENT AND DRAINING NOT VERY MUCH OUTPUT. DRESSING INTACT TO LEGS. NO ACUTE CHANGES TO REPORT THIS SHIFT. BED IN LOWEST POSITION, CALL LIGHT WITHIN REACH.
--- NOTE | 2021-03-19 11:17 | NUR ---
CC ASSESSMENT: MEDICATED FOR PAIN PER EMAR. NO DYSPNEA/SOB/SECRETIONS. MELENDEZ PATENT & DRAINING TO GRAVITY. NO FAMILY PRESENT. WCTM.
--- NOTE | 2021-03-19 16:11 | NUR ---
Attempted visit this afternoon. Pt was somnolent and did not wake to voice but stirred. She has a lot of motility of head, as if she cannot hold it in one position, due to neck muscle weakness. No family at bedside visiting today. We will cont to follow and be available if needed for s/s management. DONELL CM working with sister on dc planning.
--- NOTE | 2021-03-19 17:46 | NUR ---
CC ASSESSMENT: NO C/O PAIN. NO DYSPNEA/SOB/SECRETIONS. NO FAMILY PRESENT. WCTM.
--- NOTE | 2021-03-19 17:46 | NUR ---
CC ASSESSMENT: NO C/O PAIN. NO DYSPNEA/ SOB/ SECRETIONS. WCTM.
--- NOTE | 2021-03-19 17:47 | NUR ---
CC ASSESSMENT: NO C/O PAIN. NO DYSPNEA/SOB/SECRETIONS. FAMILY IN ROOM. WCTM.
--- NOTE | 2021-03-19 18:10 | NUR ---
CC ASSESSMENT: NO C/O PAIN / PT IN NO APPARENT DISTRESS. NO DYSPNEA/ SOB/ SECRETIONS. NO FAMILY PRESENT. MELENDEZ PATENT & DRAINING. WCTM.
--- NOTE | 2021-03-19 18:37 | NUR ---
SHIFT SUMMARY: NO ACUTE EVENTS TO REPORT THIS SHIFT. PT ALERT; ORIENTED TO SELF AND FAMILY; VERY SOFT-SPOKEN; CALM AND COOPERATIVE WITH CARE. MEDICATED FOR GENERALIZED PAIN PER EMAR. L FOOT DRESSING CHANGE THIS SHIFT; PT TOLERATED WELL. MELENDEZ IN PLACE; PATENT & DRAINING. AWAITING SAFE DISCHARGE PLAN. TM.
--- NOTE | 2021-03-20 04:12 | NUR ---
SHIFT SUMMARY ADMITTED FOR WET GANGRENE OF LEFT FOOT/FAY. DNR CODE. I&D PERFORMED. SHE IS FAILURE TO THRIVE. SHE IS NOW COMFORT CARE. PLAN IS FOR DC W/HOSPICE & PLACEMENT. SHE WAS FORMERLY LIVING WITH HER SISTER. MELENDEZ IS IN PLACE. SHE IS A&O X2 @ BASELINE. [facility] SOFT DIET. HX: DEMENTIA, ETOH.
--- NOTE | 2021-03-20 11:45 | NUR ---
CC ASSESSMENT: NO C/O PAIN. NO DYSPNEA/SOB/SECRETIONS. MELENDEZ PATENT & DRAINING. NO FAMILY PRESENT. WCTM.
--- NOTE | 2021-03-20 11:47 | NUR ---
CC ASSESSMENT: MEDICATED FOR PAIN PER EMAR. NO DYSPNEA/SOB/SECRETIONS. NO FAMILY PRESENT. WCTM.
--- NOTE | 2021-03-20 12:20 | NUR ---
[facility] Comfort Care - Pt states she is impatiently waiting for her lunch tray to arrive. She presents as oriented but does ramble in conversation about persons and situations that are not present in her room also. She did not report pain to me and denies pain at this time when asked. She appears restless and sl anxious but I believe this is her baseline. She did not demonstrate nonverbal indicators of pain, agitation or distress. Plan regular visits for support.
--- NOTE | 2021-03-20 13:10 | NUR ---
03/20/21- Spoke with sister who states that meeting with [employer] went well and she dropped off the requested documents at their office. She was told that a single fold machine operator will call her back in the next couple of days. Encouraged the sister to call [employer] to get daily updates on where they are in the process and to remind them that her sister is on hospice in the hospital and her wishes are to not in the hospital. Sister stated that she is feeling a lot of guilt and anxiety over her sister being in the hospital and asked about what it would take to bring her home. We discussed that she would either need to wait for the [employer] process to be completed so they can pay for caregivers to be in the home or she would have to pay for caregivers privately. Sister says that she can't afford caregivers out of pocket. Sister made a few comments about herself and her stress. Asked sister if she is seeing someone and taking care of herself. Discussed a little bit how she can care for herself and importance of self-care so she well enough to care for her sister. -bernarda
--- NOTE | 2021-03-20 13:50 | NUR ---
Spiritual care visit conducted. Patient is sitting up in bed and alert. Patient talks about her medical issues, and then at length about her "horrible" childhood. She also talks about her fears concerning where she will go when she will DC from the hospital. She explains about the struggles her sister is having and that she can't take her and about her desire to not go back to a SNF. Patient has a strong desire to live and thrive. She has strong beliefs in God and states that her prayers are what keep her inner battles to a minimum. I reinforce helpful attitudes and provide gentle encouragement, therapeutic listening and prayer. Patient responds well and shows signs of reduced stress. I will continue to remain available to patient and family.
--- NOTE | 2021-03-20 15:44 | NUR ---
CC ASSESSMENT: NO C/O PAIN. NO DYSPNEA/SOB/SECRETIONS. NO FAMILY PRESENT. WCTM.
--- NOTE | 2021-03-20 15:45 | NUR ---
CC ASSESSMENT: NO C/O PAIN. NO DYSPNEA/SOB/SECRETIONS. NO FAMILY PRESENT. WCTM.
--- NOTE | 2021-03-20 17:37 | NUR ---
CC ASSESSMENT: NO C/O PAIN. NO DYSPNEA/ SOB/ SECRETIONS. NO FAMILY PRESENT. WCTM.
--- NOTE | 2021-03-20 17:40 | NUR ---
SHIFT SUMMARY: NO ACUTE EVENTS TO REPORT THIS SHIFT. PT A&O X2; CALM AND COOPERATIVE WITH CARE. MEDICATED FOR GENERALIZED PAIN PER EMAR; NO DYSPNEA/ SOB/ SECRETIONS. MELENDEZ IN PLACE; PATENT & DRAINING. NO FAMILY MEMBERS IN THIS SHIFT. COMFORT CARE MEASURES CONTINUING. WCTM.
--- NOTE | 2021-03-20 18:03 | NUR ---
CC ASSESSMENT: NO C/O PAIN. NO DYSPNEA/ SOB/ SECRETIONS. NO FAMILY PRESENT. WCTM.
--- NOTE | 2021-03-20 19:10 | NUR ---
ASSUMED CARE RECEIVED REPORT FROM XIMENA CALVILLO. PT RESTING, IN NAD. NO ACUTE NEEDS ASSESSED AT THIS TIME. CALL LIGHT, POSSESSIONS IN REACH, BED IN LOW AND LOCKED POSITION WITH ALARMS ON.
--- NOTE | 2021-03-21 06:43 | NUR ---
CHAINMAN SUMMARY PT ASLEEP, IN NAD; APPEARS COMFORTABLE. PAIN MANAGED WITH MEDS PER EMAR, WITH GOOD EFFECT; REPOSITIONED T/O NIGHT REQUESTED TO MAINTAIN COMFORT. DRSG C/D/I TO LLE. NO ACUTE NEEDS ASSESSED AT THIS TIME. CALL LIGHT, POSSESSIONS IN REACH, BED IN LOW AND LOCKED POSITION WITH ALARMS ON. WILL REPORT OFF TO ONCOMING RN.
--- NOTE | 2021-03-21 17:07 | NUR ---
SHIFT SUMMARY PT ON COMFORT CARE. AxOx3 WITH INTERMITTENT CONFUSION. PT REPORTED PAIN ALL OVER BODY THIS SHIFT AND WAS MEDICATED PER EMAR ORDERS. PT HAD LARGE BM TODAY. CATHETER CARE PERFORMED WITH MELENDEZ DRAINING PATENT TO GRAVITY. PT ATE MEALS AND DRANK ADEQUATELY THIS SHIFT. PT HAD FAMILY MEMBER IN FOR VISITING HOURS TODAY. PER DIRECTOR OF SALES SUPPORT, CURRENT PLAN IS IS PENDING APPOINTMENT WITH APS, WHICH IS SCHEDULED FOR FRIDAY AND WILL DETERMINE FURTHER PLACEMENT FOR PATIENT DISCHARGE. PT IS CURRENTLY RESTING IN BED WITH CALL LIGHT IN REACH. PT DENIES ANY NEEDS AT THIS TIME.
--- NOTE | 2021-03-22 06:53 | NUR ---
SHIFT SUMMARY PT IS A 65 Y/O FEMALE, ADMITTED FOR WET GANGRENE AND CURRENTLY COMFORT CARE. SHE IS A&O X 2, ABLE TO MAKE NEEDS KNOWN. SHE WAS MEDICATED FOR BLE PAIN WITH NORCO AND ROXANOL. NO C/O ACUTE SOB OR NAUSEA. NO ACUTE CHANGES IN PT CONDITION NOTED DURING THE NIGHT. WILL CONTINUE TO MONITOR AND TREAT PER EMAR UNTIL HAND OFF TO DAY SHIFT RN.
--- NOTE | 2021-03-22 08:00 | NUR ---
PT PLEASANT COOP A/O X3, VERY QUIET SPOKEN. STATES PAINFUL. MED FOR PAIN. REQUESTED ICE CHIPS, DONE. TURNED, PT DID MOST OF TURN BY SELF. FLOATED UP ON PILLOWS ONE EACH SIDE. LEG IS STILL WRAPPED. CDI AT THIS TIME. BED IN LOW POSITION, CALL LITE IN REACH, CALLS APPROP, BED ALARM ON FOR SAFETY
--- NOTE | 2021-03-22 17:07 | NUR ---
Supportive care visit made today to pt. She tells me she will be returning to her sister's home "after all". Per notes, this may be happening, if there is financial resource via pt to pay for CG's as sister can't afford this. Pt tells me no doctor has been in today, although there is a physician note in place. She does seem alert, but becomes confused often. She reports pain is "bearable" today. She spend time talking about her childhood, which seems to be an ongoing theme for her. Today, she told me she was one of 12 children, and [place]. She states school was hard, as the "city kids" thought the farm kids were "stupid". She recalled learning to make slingshots and "flying toys from corn cobs and feathers". 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 She states she's glad she has her sister, and showed me the kang her sister brought in for her; a beautiful boquet. We talked about kang for a bit, and before the visit ended I asked pt if I could return to visit her tomorrow. She said, "Yes of course". She was quite animated and pleasant, more than at our past visits. Plan to see her again tomorrow.
--- NOTE | 2021-03-22 18:22 | NUR ---
Update 03/22/21: Spoke with patients sister Sirena. She is in the process of trying to obtain watermelon inspector care benefits for patient through Medicaid. She states that the pt. did not have coverage for a watermelon inspector care facility. I did let Sirena know that with the current ETOH abuse, care facilities are going to be unlikely to accept the pt. Medicaid will likely cover the cost of caregiver support within the home. Sister said that telephonic nurse case manager from [facility] Christiano will be coming into perform assessment on patient tomorrow at 2pm. I will meet with Christiano at that time to discuss options for caregiving assistance. Options are likely [facility] or [facility] on hospice (if they would consider accepting with ETOH abuse) or sister's home on hospice and with health care coordinator support. I will contact the care facilities in the am to find out if they would be willing to review patient for acceptance and discuss further with Sirena after those calls. Dr. Ng updated.
--- NOTE | 2021-03-22 18:42 | NUR ---
PT PLEASANT THIS SHIFT. PAIN DID ESCALATE THIS NIA. MED WITH [facility] AND DENI. PT STATES COMING BACK DOWN. FAMILY (?) IN TO VISIT THIS AFT. NO NEW CONCERNS NOTED TODAY. BED IN LOW POSITION, CALL LITE IN REACH, BED ALARM ON FOR SAFETY
--- NOTE | 2021-03-23 06:23 | NUR ---
SHIFT SUMMARY PT IS A 65 Y/O FEMALE, ADMITTED FOR WET GANGRENE AND CURRENTLY COMFORT CARE. SHE IS A&O X 3, BEDREST. SHE WAS MEDICATED FOR DIFFUSE PAIN WITH PRN NORCO AND ROXANOL. NO C/O SOB OR NAUSEA. NO ACUTE CHANGES IN PT CONDITION NOTED DURING THE NIGHT. WILL CONTINUE TO MONITOR AND TREAT PER EMAR UNTIL HAND OFF TO DAY SHIFT RN.
--- NOTE | 2021-03-23 14:01 | NUR ---
Pt is tearful today, she states she won't be returning to her sister. She says her sister can't take care of her needs any longer. This is the first time she has acknowleged this. She is not very talkative today. Plan to call sister for supportive t/c.
--- NOTE | 2021-03-23 17:37 | NUR ---
UPDATE 03/23/21: THIS AFTERNOON WE HAD A MEETING WITH [facility] GASTROENTEROLOGY NURSE PRACTITIONER CHANDRA, PALLIATIVE CARE, PATIENT'S SISTER EMMA, THE PATIENT AND I PRESENT. CHANDRA PERFORMED ASSESSMENT TO DETERMINE IF [facility] PLACEMENT WOULD BE COVERED BY MEDICAID. IN ADDITION WE REQUESTED THAT IN HOME CAREGIVING SERVICES BE CONSIDERED. THE RESULT OF THE ASSESSMENT IS THAT THE PATIENT WILL RECEIVE MEDICAID COVERAGE OF EITHER [facility] CARE OR IN HOME CARE GIVING. WE DISCUSSED IN DEPTH WITH THE PT. AND SISTER THE RISK OF [facility] CARE FACILITIES NOT ACCEPTING PT. DUE TO CONCERN WITH HX. OF ETOH ABUSE AND OTHER CONCERNS WITH CARE NEEDS. I HAVE CONTACT [facility] AND THEY HAVE AGREED TO CONSIDER THE PT., ALTHOUGH THEY MANY RESERVATIONS. PALLIATIVE CARE WILL CONTACT A FOSTER FACILITY THAT MIGHT HAVE A HOSPICE BED AVAILABLE. EMMA IS AGREEABLE TO CAREGIVER WITHIN THE HOME IN ADDITION TO HOSPICE IF NEEDED. WE SHOULD HAVE A FINAL DECISION ON CARE PLAN FOR DISCHARGE BY FRIDAY.
--- NOTE | 2021-03-23 17:43 | NUR ---
PT QUITE PLEASANT TODAY . MED PER EMAR. PAIN MANAGED WELL TODAY. THIS RN DID DRESSING CHANGE TODAY. NO NEW CONCERNS NOTED. BED IN LOW POSITION, CALL LITE IN REACH, BED ALARM ON FOR SAFETY
--- NOTE | 2021-03-24 04:10 | NUR ---
SHIFT SUMMARY PATIENT AXOX 2-3, BEDREST AND ON COMFORT CARE. TAKES MEDICATION WITH WATER. NO IV ACCESS. MELENDEZ PATENT AND DRAINING TO GRAVITY. DENIES PAIN, SOB, AND N/V. DRESSING C/D/I TO LLE. CALL LIGHT IN REACH. BED IN LOWEST POSITION. WILL CONTINUE TO MONITOR UNTIL DAY SHIFT NURSE ASSUMES CARE.
--- NOTE | 2021-03-24 08:51 | NUR ---
RECEIVED PT FROM KENYATTA BUENO. PT CURRENTLY SLEEPING IN BED WITH CALL LIGHT IN REACH.
--- NOTE | 2021-03-24 11:16 | NUR ---
Comfort care note Visited with Jazzmine this morning. She requested a box of kleenex which was provided to her. She states her legs are itchy and is putting lotion on them. Offered to assist her with putting lotion on, however she declined. She states that she is hopeful that she will get to return home at discharge but she is unsure if this will happen. She states her sister "Is working on it." Jazzmine is very thin. Dsg intact to LLE. PC will continue to visit for supportive visits and symptom management as needed.
--- NOTE | 2021-03-24 11:24 | NUR ---
PT REPORTS GENERALIZED PAIN AND WAS TREATED PER EMR WITH SUCCESS. PLEASE SEE EMR.
--- NOTE | 2021-03-24 17:41 | NUR ---
DRESSING CHANGES TO L CALF AND FOOT.
--- NOTE | 2021-03-24 18:44 | NUR ---
SHIFT SUMMARY PT A/O X3; AND ON COMFORT CARE. PAIN MANAGED PER EMR, PLEASE SEE NOTES. DRESSING CHANGE TO FOOT AND CALF. PT HAD NO OTHER COMPLAINTS THIS SHIFT. AWAITING PLACEMENT AND TO POSSIBLY DC ON HOSPICE. RESTING COMFORTABLY IN BED WITH HER CALL LIGHT IN REACH. WILL REPORT TO NOC RN.
--- NOTE | 2021-03-25 03:37 | NUR ---
SHIFT SUMMARY PATIENT AXOX 3 ON COMFORT CARE AND BEDREST. TAKES MEDICATION WHOLE WITH WATER. MELENDEZ PATENT AND DRAINING. DENIES SOB AND N/V. REPORTED BACK AND LEG PAIN. NORCO GIVEN PER EMAR. DRESSING C/D/I TO LLE. COOPERATIVE WITH CARE. CALL LIGHT IN REACH. BED IN LOWEST POSITION. WILL CONTINUE TO MONITOR UNTIL DAY SHIFT NURSE ASSUMES CARE.
--- NOTE | 2021-03-25 10:55 | NUR ---
PT HAS BEEN SITTING UP IN HER BED THIS MORNING. PAIN MANAGED WITH NORCO AND ROXANOL. NORCO APPEARS TO BE MOST EFFECTIVE. PT ATE BREAKFAST AND TOOK HER MORNING MEDICATIONS WITHOUT DIFFICULTY. WILL CONTINUE TO MONITOR.
--- NOTE | 2021-03-25 12:57 | NUR ---
PT SITTING UP IN BED. SHE FINISHED HER LUNCH. PT REPORTS PAIN AT 7/10 WHICH IS IMPROVED FROM EARLIER. PLAN TO GIVEN NORCO WHEN AVALIABLE. WILL CONTINUE TO MONITOR.
--- NOTE | 2021-03-25 14:09 | NUR ---
PT BOOSTED UP IN BED, SHE IS RESTING ON HER RIGHT SIDE. DECLINED REPOSITIONING ONTO HER L SIDE. PT GIVEN PAIN MEDICATION. DRESSING TO LLE CHANGED, PT TOLERATED WELL. VSS. REPORT GIVEN TO ISAURO BUENO.
--- NOTE | 2021-03-25 14:49 | NUR ---
Pt has a visitor in her room this afternoon. Appears to be comfortable at this time. PC to continue to follow.
--- NOTE | 2021-03-25 18:06 | NUR ---
NO ACUTE CHANGES. CALL LIGHT WITHIN REACH.
--- NOTE | 2021-03-26 04:17 | NUR ---
SHIFT SUMMARY PATIENT AXOX 3 ON COMFORT CARE AND BED REST. REPORTS LEG PAIN AND MANAGED WITH ROXANOL AND NORCO PER EMAR. DRESSING TO LLE C/D/I. MELENDEZ PATENT AND DRAINING. DENIES SOB AND N/V. TAKES MEDICATION WHOLE WITH WATER. COOPERATIVE WITH CARE. CALL LIGHT IN REACH. BED IN LOWEST POSITION. WILL CONTINUE TO MONITOR UNTIL DAY SHIFT NURSE ASSUMES CARE.
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
--- NOTE | 2021-03-26 17:28 | NUR ---
SHIFT SUMMARY- PT IS ALERT, PLESANT AND COOPERATIVE. SHE IS EATING AND DRINKING WELL. HER MELENDEZ IS PATIENT AND DRAINING WELL. CHANGED HER LINENS AND HER BANDAGE THIS SHIFT. SHE IS RECIEVING PRN PAIN MEDICATIONS. HER SISTER VISITED THIS SHIFT. HER BED IS IN THE LOW POSITION AND CALL LIGHT IS WITHIN REACH.
--- NOTE | 2021-03-26 21:36 | NUR ---
2032 PT LYING IN BED, REPORTS LOWER BACK AND L LEG PAIN, GAVE NORCO, WILL EVAL FOR EFFECT. WOUND TO L LE, DRESSING RECENTLY CHANGED BY DAY RN, DRESSING IS C/D/I. MELENDEZ WITH YELLOW URINE WITH SOME SEDIMENT. NO OTHER APPARENT SIGNS OF DISTRESS. CALL LIGHT IS IN REACH.
--- NOTE | 2021-03-27 00:37 | NUR ---
03/26/21 2330 PT LYING IN BED, EYES CLOSED, APPEARS TO BE RESTING. BREATHING IS EVEN, UNLABORED. NO APPARENT SIGNS OF DISTRESS. CALL LIGHT IS IN REACH.
--- NOTE | 2021-03-27 06:29 | NUR ---
0200 PT LYING IN BED, EYES CLOSED, APPEARS TO BE RESTING. BREATHING IS EVEN, UNLABORED. NO APPARENT SIGNS OF DISTRESS. CALL LIGHT IS IN REACH. 0356 PT REQUESTED AND RECIEVED PAIN MEDS, WILL EVAL FOR EFFECT. NO OTHER APPARENT SIGNS OF DISTRESS. CALL LIGHT IS IN REACH.
--- NOTE | 2021-03-27 06:30 | NUR ---
PT IS AAO X 4, ON RA. PT REPORTS LOWER BACK AND L LEG PAIN, GOT ROXANOL X 1 AND NORCO X 2. MELENDEZ THAT IS YELLOW WITH SOME SEDIMENT. DRESSING ON L LEG THAT IS C/D/I.
--- NOTE | 2021-03-27 06:31 | NUR ---
0512 PT REQUESTED AND RECIEVED PAIN MEDS, WILL EVAL FOR EFFECT. NO OTHER APPARENT SIGNS OF DISTRESS. CALL LIGHT IS IN REACH. NO OTHER CHANGES THIS SHIFT.
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
--- NOTE | 2021-03-27 18:18 | NUR ---
Met with pt for supportive visit. She was very talkative today; and this was the first visit we had that she didn't discuss her future. She is sipping on a juice. She reports her pain is well controlled at this time. No changes to care plan at this time. Will review and check in with pt tomorrow.
--- NOTE | 2021-03-27 18:48 | NUR ---
SHIFT SUMMARY- PT IS ALERT, PLESANT AND COOPERATVIE. SHE IS EATING AND DRINKING WELL. SHE HAD A BM THIS SHIFT. SHE IS RECIEVING PRN PAIN MEDICATIONS. SHE SLEPT FOR MUCH OF THIS SHIFT. HER BED IS IN THE LOW POSITION AND CALL LIGHT IS WITHIN REACH.
--- NOTE | 2021-03-28 05:18 | NUR ---
SHIFT SUMMARY ASSUMED CARE OF PT AT 1900. PT IS A/OX4. PT WAS PAINFUL TWICE DURING THE NIGHT; MEDICATED PER EMAR. PT HAD A LARGE BM. PT HAS A MEPILEX ON HER COCCYX AND HER LEG DRESSING WRAPPED. CALL LIGHT IN REACH, BED IN LOWEST POSTION.
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
--- NOTE | 2021-03-28 19:26 | NUR ---
[employer]- UNEVENTFUL DAY. PT TOLERATING FOOD AND FLUIDS. PAIN IN LEGS AND BACK CONTROLLED WITH ROXONOL AND VICODIN ALTERNATING. LLL DRESSING CHANGED AROUND 1600, XEREFORM TO OPEN ULCERATIONS, SECURED WITH KERLEX AND PRERNA. MELENDEZ PATENT AND DRAINING. NO OTHER SKIN ISSUES.
--- NOTE | 2021-03-29 04:46 | NUR ---
STEAM PLANT CONTROL ROOM OPERATOR SUMMARY PT A/O X4 WITH FORGETFULNESS. SOFT SPOKEN. MEDICATED FOR BILATERAL LEG PAIN AND GENERALIZED PAIN OVERNIGHT. PT USES CALL LIGHT APPROPRIATELY. REPOSITIONED ALLOWED. COMFORT MEASURES PROVIDED. CALL LIGHT WITHIN REACH, WILL CONTINUE TO MONITOR.
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
--- NOTE | 2021-03-29 17:28 | NUR ---
SUMMARY-PT A/O X4, AWAKENS USUALLY LONG ENOUGH TO EAT MEALS AND SLEEPS OTHER HOURS. PAIN IS CONTROLLED WITH ROXONOL AND VICODIN. SISTER IN TO VISIT THIS AFTERNOON. DRESSING TO LLE CHANGED 1529, XEREFORM, KERLEX AND PRERNA.
--- NOTE | 2021-03-30 04:21 | NUR ---
SHIFT SUMMARY: PT IS ALERT AND ORIENTED. PT CALLS APPROPRIATELY. PT IS ON BEDREST. PT REPORTS PAIN THROUGHOUT THE NIGHT, MEDICATING PER EMAR. PT REPOSITIONED FOR COMFORT. PT DENIES NAUSEA, VOMITING, AND SOB. WILL CONTINUE TO MONITOR.
--- NOTE | 2021-03-30 15:36 | NUR ---
SHIFT SUMMARY NO ACUTE CHANGES TO PRESENT THIS SHIFT. PT REMAINS ON COMFORT CARE AND WAITING FOR PLACEMENT. MEDICATED FOR C/O PAIN NEEDED, PER EMAR. BED BATH GIVEN AND LINEN CHANGED. DR RAMSAY HERE THIS AFTERNOON TO SEE PT. PT DENIED FURTHER NEEDS. CALL LT IN REACH.
--- NOTE | 2021-03-30 17:05 | NUR ---
I have attempted multiple times throughout this week to contact [facility] piano case maker Christiano and he has been unavailable. We need to know from Christiano how many hours the pt. qualifies for when it comes to caregiver assistance. It would also be helpful to have [facility] assistance with placement as we have contacted facilities accross the state with none accepting patient so far. Contacted patient's sister Shahnaz to follow-up this am. Everytime we talk she mentions again being willing to take patient on hospice. We agreed that we will continue to try for placement and wait for a return call from [facility].
--- NOTE | 2021-03-31 05:19 | NUR ---
SHIFT SUMMARY PT HAD AN UNEVENTFUL NIGHT. SLEPT OFF AND ON. REPORTING PAIN "EVERYWHERE", MOST SEVERELY IN BACK AND LLE. MEDICATED WITH ALTERNATING NORCO AND ROXANOL. PT BENDS BODY FORWARD, REPORTS THAT IT IS MOST COMFORTABLE THIS WAY. WORKED ON REMAINDER OR BEER AT BEDSIDE AND SNACKED PERIODICALLY. NO ACUTE CHANGES THIS EVENING. WILL CONTINUE TO MONITOR.
--- NOTE | 2021-03-31 17:22 | NUR ---
SUMMARY PT AWAKE IN BED, HAS MANY SNACKS ON HER TABLE, PT IS ON COMFORT CARE, MED PER EMAR FOR COMFORT, PT'S SISTER HAS CAME IN TO VISIT, PT WITH NO COMPLAINTS, PT HAS BEEN PLEASANT AND COOPERATIVE WITH CARE T/O THE DAY, WILL CONT TO MONITOR
--- NOTE | 2021-04-01 04:39 | NUR ---
Jazzmine slept well after around 2400 last night. Minimal complaints of pain, mostly in back. medicated once with 20mg Roxynol for comfort
--- NOTE | 2021-04-01 17:02 | NUR ---
SUMMARY PT RESTING QUIETLY IN BED, WAKES EASILY, IS ON COMFORT CARE, MED PER EMAR FOR PAIN AND COMFORT, PT HAS BEEN PLEASANT AND COOPERATIVE WITH CARE T/O THE DAY, NO COMPLAINTS, WILL CONTINUE TO MONITOR
--- NOTE | 2021-04-02 14:23 | NUR ---
04/02/21- Per Dr. Solomon, no change in pt's comfort care status at this time. -bernarda
--- NOTE | 2021-04-02 14:36 | NUR ---
Spiritual care visit conducted. Patient is very talkative and is very active in moving the items in her bed and on her food tray to different places. She talks about how lonely she is and that she appreciates visits from spiritual and the spiritual care volunteers. She states that they are kind and even make her laugh sometimes. I provide therapeutic listening and prayer. Patient responds well and shows signs of an elevated mood.
--- NOTE | 2021-04-02 15:01 | NUR ---
CC ASSESSMENT: NO C/O PAIN. NO DYSPNEA/SOB/SECRETIONS. MELENDEZ PATENT & DRAINING. NO FAMILY PRESENT. WCTM.
--- NOTE | 2021-04-02 15:03 | NUR ---
CC ASSESSMENT: MEDICATED FOR PAIN PER EMAR. NO DYSPNEA/SOB/SECRETIONS. NO FAMILY PRESENT. WCTM.
--- NOTE | 2021-04-02 15:04 | NUR ---
CC ASSESSMENT: NO C/O PAIN. NO DYSPNEA/SOB/SECRETIONS. NO FAMILY PRESENT. WCTM.
--- NOTE | 2021-04-02 15:04 | NUR ---
CC ASSESSMENT: NO C/O PAIN / PT IN NO APPARENT DISTRESS. NO DYSPNEA/SOB/SECRETIONS. NO FAMILY PRESENT. WCTM.
--- NOTE | 2021-04-02 16:33 | NUR ---
CC ASSESSMENT: NO C/O PAIN. NO DYSPNEA/SOB/SECRETIONS. NO FAMILY PRESENT. MELENDEZ PATENT & DRAINING. WCTM.
--- NOTE | 2021-04-02 17:26 | NUR ---
pt resting no grimace breathing even will continue to monitor her leg pain.
--- NOTE | 2021-04-02 19:07 | NUR ---
RECEIVED BEDSIDE REPORT FROM JOCELIN RN. PT SITTING UPRIGHT IN BED AFTER WORKING ON HER DINNER TRAY. MELENDEZ PATENT AND DRAINING. ON RA. ICE CHIPS GIVEN PER PT REQUEST. WILL PROVIDE CARE T/O SHIFT. CALL LT IN REACH.
--- NOTE | 2021-04-02 19:17 | NUR ---
CC ASSESSMENT: MEDICATED FOR PAIN PER EMAR. NO DYSPNEA/SOB/SECRETIONS. NO FAMILY PRESENT. MELENDEZ PATENT & DRAINING. WCTM.
--- NOTE | 2021-04-02 19:18 | NUR ---
SHIFT SUMMARY: NO ACUTE EVENTS TO REPORT THIS SHIFT. PT A&O X3-4; CALM AND COOPERATIVE WITH CARE. MEDICATED FOR PAIN PER EMAR. NO DYSPNEA/SOB/SECRETIONS. MELENDEZ IN PLACE; PATENT & DRAINING. COMFORT CARE MEASURES CONTINUING. REPORT GIVEN TO ONCOMING RN.
--- NOTE | 2021-04-02 20:46 | NUR ---
WOUND CARE TO LLE COMPLETE. SEE WOUND DOCUMENTATION.
--- NOTE | 2021-04-02 23:48 | NUR ---
PT REARRANGING STUFF ON HER BEDSIDE TABLE. SCOOTED HER GARBAGE CAN CLOSER. TURNED HER LIGHT ON. NO OTHER NEEDS. CALL LT IN REACH.
--- NOTE | 2021-04-03 02:56 | NUR ---
PT RESTING COMFORTABLY. CALL LT IN REACH.
--- NOTE | 2021-04-03 04:12 | NUR ---
PT HAD A BOWEL MOVEMENT. REPOSITIONED PT IN BED. CALL LT IN REACH.
--- NOTE | 2021-04-03 04:12 | NUR ---
SHIFT SUMMARY: A/O. STATES NEEDS APPROPRIATELY. MEDICATED X 2 FOR FEET, HANDS AND BACK PAIN WITH FAIR PAIN RELIEF. NO REPORTS OF NAUSEA. LIKES ICE CHIPS. MELENDEZ PATENT AND DRAINING YELLOW URINE. NO ACUTE CHANGES. WILL CONTINUE TO PROVIDE CARE UNTIL SHIFT REPORT. CALL LT IN REACH.
--- NOTE | 2021-04-03 14:07 | NUR ---
Still waiting to hear back from facilities that are reviewing pt for placement. -beranrda
--- NOTE | 2021-04-03 14:25 | NUR ---
Spiritual care visit conducted. Therapeutic listening and prayer is provided
--- NOTE | 2021-04-03 16:42 | NUR ---
Met with [facility] again today. She remains bedbound, and no changes needed to care plan at this time. Staff note she is beginning to sleep more during both the day and night. Her appetite remains poor. She continues to drink beer with meals. Will continue to visit her as she is open to it.
--- NOTE | 2021-04-04 05:49 | NUR ---
SHIFT SUMMARY PATIENT ALERT AND ORIENTED X3. MEDICATED NEEDED PER EMAR FOR PAIN. NO COMPLAINTS OF SHORTNESS OF BREATH. NO ACUTE ISSUES NOTED OVERNGIHT. BED IN LOWEST POSITION WITH WHEELS LOCKED AND ALARM ON. CALL LIGHT WITHIN REACH. REPORT GIVEN TO ONCOMING RN.
--- NOTE | 2021-04-04 15:32 | NUR ---
[facility] comfort care visit - Pt and RADIOLOGY MANAGER working on getting clean bedding and gown changed out with bedding that was wet with something pt had spilled. Pt eating minimal bites of meal trays. She is awake and alert. She reports pain, "same as always" and "not very bad". Pt has been medicated per eMar for pain with Roxanol prn and also Gabapentin scheduled. No visitors at the time of my visit.
--- NOTE | 2021-04-04 19:20 | NUR ---
RECEIVED REPORT AND ASSUMED CARE OF PT. SHE IS AWAKE AND RESPONSIVE, REQUESTING PAIN MEDICATION. WILL MEDICATE PER OCT.
--- NOTE | 2021-04-04 19:21 | NUR ---
SHIFT SUMMARY: ON COMFORT CARE. C/O PAIN IN LEGS, SHOULDERS, FEET, AND NECK; MEDICATED PER EMAR. DRESSING ON LLE CHANGED TODAY. POOR APPETITE, PICKS AT HER FOOD. AWAITING SNF BED FOR HOSPICE.
--- NOTE | 2021-04-04 20:02 | NUR ---
PT LYING IN BED REARRANGING ITEMS ON HER TRAY. SHE REQUESTED MEDICATION FOR A HEADACHE. ABLE TO SWALLOW PILLS WITHOUT DIFFICULTY. PILLOW PLACED UNDER RIGHT HIP. PT DENIED ANY OTHER NEEDS AT THIS TIME. ACRLTM.
--- NOTE | 2021-04-04 23:53 | NUR ---
PT RESTING QUIETLY WITH EYES CLOSED, RESPIRATIONS EVEN AND UNLABORED. WCTM.
--- NOTE | 2021-04-05 02:05 | NUR ---
PT RESTING QUIETLY WITH EYES CLOSED AND EVEN, UNLABORED RESPIRATIONS. WCTM.
--- NOTE | 2021-04-05 02:06 | NUR ---
PT OFFERED TURN/REPOSITION. MEDICATED PER MAR FOR COMPLAINTS OF PAIN. SHE IS LYING IN BED WITH THE CALL LIGHT IN REACH. WCTM.
--- NOTE | 2021-04-05 06:29 | NUR ---
PT REPORTS IMPROVED PAIN LEVEL AFTER ADMINISTRATION OF ROXANOL. SHE IS AWAKE AND ALERT, WATCHING TV AND DRINKING SOME OF THE FLUIDS FROM HER TRAY. SHE REQUESTED A SWEATER FROM HER BACKPACK, DENIES REPOSITIONING AT THIS TIME. TANIA.
--- NOTE | 2021-04-05 06:31 | NUR ---
SHIFT SUMMARY: NINI RESTED INTERMITTENTLY DURING THE SHIFT. SHE IS ABLE TO MAKE HER NEEDS KNOWN, USES THE CALL LIGHT APPROPRIATELY. SOME HOARDING BEHAVIORS NOTED (SUCH PACKING SILVERWARE UNDERNEATH HER COVERS). NORA ACHARYA. SHE IS LYING IN BED WITH THE CALL LIGHT IN REACH. WILL REPORT TO DAY SHIFT RN.
--- NOTE | 2021-04-05 06:31 | NUR ---
PT RESTING QUIETLY WITH EYES CLOSED AND EVEN, UNLABORED RESPIRATIONS. WILL MONITOR UNTIL RELIEVED BY DAY SHIFT RN.
--- NOTE | 2021-04-05 12:29 | NUR ---
COMFORT PATIENT SLEEPING COMFORTABLY.
--- NOTE | 2021-04-05 16:49 | NUR ---
04/05/21- discussed pt during long-stay meeting today. Pt is being reviewed by [facility] for placement. There was also discussion that pt could be discharged home with caregivers and list of places that are reviewing for placement and family work on finding her a place to live. Will need to contact [employer] to find out if the pt has a payer source. Pt has been in the hospital for the last 27 days. -bernarda
--- NOTE | 2021-04-05 18:07 | NUR ---
Visit with pt today; she was happiest I've seen her yet. She reported pain was well controlled. She declined the bulk of her dinner tray, but did keep the roll, the milk and a fruit cup. She states she in in a "pissing match with her sister at the moment, but states they will make up soon. She didn't disclose what the argument was about, and I didn't ask. She is agreeable to a longer visit tomorrow.
--- NOTE | 2021-04-05 18:18 | NUR ---
COMFORT CARE PATIENT WAS MEDICATED FOR PAIN AND REPOSITIONED. MELENDEZ CATH WAS DISCONTINUED PER DR. RUSH ORDER. DRESSINGS WERE CHANGED ON WOUND TO LEFT LEG AND FOOT. PREMEDICATED FOR WOUND CARE. PATIENT TOLERATED DRESSING CHANGE WELL.
--- NOTE | 2021-04-06 05:51 | NUR ---
SHIFT SUMMARY- PT. COMFORT CARE. ALERT W/SOME CONFUSION. MEDICATED FOR PAIN PER EMAR WITH GOOD EFFECT. PT. SLEPT T/O THE NIGHT, NO APPARENT DISTRESS NOTED. CALL LIGHT WITHIN REACH AND SIDE RAILS UPX2. WILL CONT TO MONITOR.
--- NOTE | 2021-04-06 17:36 | NUR ---
SHIFT SUMMARY PT AOX3; CALLS APPROPRIATELY. CHANGED DAILY DRESSING ON LEFT LEG. MEDICATED FOR PAIN PER EMAR. COMFORT CARE PER PROTOCAL AND Q2 TURN NEEDED. BED IS IN THE LOWEST POSITION AND CALL LIGHT WITHIN REACH
--- NOTE | 2021-04-07 05:41 | NUR ---
PHARMACY DATA ANALYST SUMMARY PT SLEPT WELL TONIGHT. MEDICATED FOR PAIN OVERNIGHT. PT USES CALL LIGHT APPROPRIATELY. FREQUENT REPOSITIONING PROVIDED, COMFORT CARE MEASURE PROVIDED. CALL LIGHT WITHIN REACH, BED ALARM ON, WILL CONTINUE TO MONITOR.
--- NOTE | 2021-04-07 11:26 | NUR ---
CC ASSESSMENT: MEDICATED FOR PAIN PER EMAR. NO DYSPNEA/SOB/SECRETIONS. NO FAMILY PRESENT. WCTM.
--- NOTE | 2021-04-07 18:07 | NUR ---
CC ASSESSMENT: NO C/O PAIN. NO DYSPNEA/SOB/SECRETIONS. NO FAMILY PRESENT. WCTM.
--- NOTE | 2021-04-07 18:08 | NUR ---
CC ASSESSMENT: NO C/O PAIN. NO DYSPNEA/SOB/SECRETIONS. NO FAMILY PRESENT. WCTM.
--- NOTE | 2021-04-07 18:09 | NUR ---
CC ASSESSMENT: MEDICATED FOR PAIN PER EMAR. NO DYSPNEA/SOB/SECRETIONS. NO FAMILY PRESENT. WCTM.
--- NOTE | 2021-04-07 18:10 | NUR ---
CC ASSESSMENT: NO C/O PAIN. NO DYSPNEA/SOB/SECRETIONS. NO FAMILY PRESENT. WCTM.
--- NOTE | 2021-04-07 18:12 | NUR ---
SHIFT SUMMARY: NO ACUTE EVENTS TO REPORT THIS SHIFT. PT A&O X1-2; CALM AND COOPERATIVE WITH CARE. MEDICATED FOR BACK/GENERALIZED PAIN PER EMAR. NO DYSPNEA/SOB/SECRETIONS. NO FAMILY IN ROOM THIS SHIFT. COMFORT CARE MEASURES CONTINUING. AWAITING SAFE DISCHARGE PLAN. WCTM.
--- NOTE | 2021-04-08 06:16 | NUR ---
E MAIL SYSTEM ADMINISTRATOR SUMMARY PT A/OX4 WITH FORGETFULNESS. MEDICATED FOR PAIN OVERNIGHT, SLEPT WELL. NO ACUTE CHANGES. ABLE TO USE CALL LIGHT APPROPRIATLY. NO DYSPNEA OR SECRETIONS. COMFORT CARE MEASURES PROVIDED. CALL LIGHT WITHIN REACH, WILL CONTINUE TO MONITOR.
--- NOTE | 2021-04-08 09:27 | NUR ---
CC ASSESSMENT: NO C/O PAIN. NO DYSPNEA/SOB/SECREIONS. NO FAMILY PRESENT. WCTM.
--- NOTE | 2021-04-08 17:43 | NUR ---
CC ASSESSMENT: NO C/O PAIN. NO DYSPNEA/SOB/SECRETIONS. NO FAMILY PRESENT. WCTM.
--- NOTE | 2021-04-08 19:03 | NUR ---
CC ASSESSMENT: NO C/O PAIN. NO DYSPNEA/SOB/SECRETIONS. NO FAMILY PRESENT. WCTM.
--- NOTE | 2021-04-08 19:21 | NUR ---
CC ASSESSMENT: NO C/O PAIN. NO DYSPNEA/SOB/SECRETIONS. NO FAMILY PRESENT. WCTM.
--- NOTE | 2021-04-08 19:22 | NUR ---
CC ASSESSMENT: NO C/O PAIN / PT IN NO APPARENT DISTRESS. NO DYSPNEA/SOB/SCRETIONS. NO FAMILY PRESWENT. WCTM.
--- NOTE | 2021-04-08 19:22 | NUR ---
CC ASSESSMENT: NO C/O PAIN. NO DYSPNEA/SOB/SECRETIONS. NO FAMILY PRESENT. WCTM.
--- NOTE | 2021-04-08 19:23 | NUR ---
SHIFT SUMMARY: NO ACUTE EVENTS TO REPORT THIS SHIFT. PT A&O X2-3; CALM AND COOEPRATIVE WITH CARE. MEDICATED FOR GENERALIZED PAIN PER EMAR. WOUND CARE TO LLE THIS SHIFT; PICTURES UPDATED IN CHART. COMFORT CARE MEASURES CONTINUING. REPORT GIVEN TO ONCOMING RN.
--- NOTE | 2021-04-09 04:24 | NUR ---
MORTGAGE PROCESSING CLERK SUMMARY PT A/O X4 WITH FORGETFULNESS. MEDICATED FOR PAIN X2 TONIGHT. SLEPT WELL AND ABLE TO USE CALL LIGHT APPROPRIATELY. NO ACUTE CHANGES. NO SECRETIONS OR DYSPNEA. REPOSITIONING PROVIDED. COMFORT CARE MEASURE PROVIDED. CALL LIGHT WITHIN REACH, BED ALARM ON, WILL CONTINUE TO MONITOR.
--- NOTE | 2021-04-09 15:10 | NUR ---
Patient immediately tells me that all she has to do is watch TV and sleep and so is makes it challenging to stay positive or look forward to anything. I then asked her about music and she states that she loves music. I asked her if she would enjoy some guitar music and she smiled and said that she would love it. I brought my guitar and played for 1/2 an hr patient clapped after each song. She then talked about the good things of her childhood and the music that has a special place in her heart. I played a couple more songs and patient said that it "made her day." I also provided prayer. Patient responds well and shows signs of an elevated mood. I will continue to remain available to patient and family.
--- NOTE | 2021-04-09 17:45 | NUR ---
SHIFT SUMMARY PT MEDICATED FOR PAIN X2 THIS SHIFT. PT DENIES N/V, SOB. PT IS BEDREST. PT C/O CONSTIPATION. PT AWAITING PLACEMENT PLANS FOR DC. NO PROCEDURES THIS SHIFT. PT HAS MODERATE APPETITE. PT DID NOT HAVE VISITORS THIS SHIFT. PT IS IN BED, CALL LIGHT IN REACH, BED IN LOW POSITION.
--- NOTE | 2021-04-09 19:19 | NUR ---
pt resting and watching tv and comfortable at this time. will assess further to see if we need to again adjust her neuronitn to refine her comfort.
--- NOTE | 2021-04-10 02:42 | NUR ---
04/09/21 2151 PT LYING IN BED, REPORTS PAIN ALL OVER, PAIN MEDS GIVEN, WILL EVAL FOR EFFECT. DRESSING OF L LE C/D/I. NO OTHER APPARENT SIGNS OF DISTRESS. CALL LIGHT IS IN REACH.
--- NOTE | 2021-04-10 03:18 | NUR ---
0200 PT LYING IN BED, EYES CLOSED, APPEARS TO BE RESTING BREATHING IS EVEN, UNLABORED. NO APPARENT SIGNS OF DISTRESS. CALL LIGHT IS IN REACH.
--- NOTE | 2021-04-10 03:18 | NUR ---
0000 PT LYING IN BED, EYES CLOSED, APPEARS TO BE RESTING. BREATHING IS EVEN, UNLABORED. NO APPARENT SIGNS OF DISTRESS. CALL LIGHT IS IN REACH.
--- NOTE | 2021-04-10 05:03 | NUR ---
0400 PT REQUESTED AND RECIEVED PAIN MEDS, WILL EVAL FOR EFFECT. CHANGED DRESSING ON L LE. PT TOLERATED PROCEDURE WELL. NO OTHER APPARENT SIGNS OF DISTRESS. CALL LIGHT IS IN REACH.
--- NOTE | 2021-04-10 05:37 | NUR ---
PT IS AAO X 4, ON RA. PT REPORTS PAIN ALL OVER, GOT ROXANOL X 2. WOUND TO L LE/FOOT, DRESSING CHANGED.
--- NOTE | 2021-04-10 05:52 | NUR ---
PT LYING IN BED, EYES CLOSED, APPEARS TO BE RESTING. BREATHING IS EVEN, UNLABORED. NO APPARENT SIGNS OF DISTRESS. CALL LIGHT IS IN REACH. NO OTHER CHANGES THIS SHIFT.
--- NOTE | 2021-04-10 16:04 | NUR ---
04/10/21- Informed that [facility] may have a hospice bed for pt. Requested packet to be sent attn: Osiris. Left message for sister to call back to update her. -bernarda
--- NOTE | 2021-04-10 16:41 | NUR ---
review of efficacy of neurontin some improvement. Pt asked that i stay ahwile she was lonely and wanted to talk. She reminisced about her [place]. Pt interested in some art and drawing set her upw with materials will return for more theraputic time.
--- NOTE | 2021-04-10 18:30 | NUR ---
SHIFT SUMMARY PT REPOSITIONED FOR COMFORT. NO REQUESTS FOR PAIN MEDS. DRESSING INTACT TO LLE. DRINKING BEER AT BEDSIDE. SISTER IN TO VISIT FOR SHORT TIME THIS AFTERNOON.
--- NOTE | 2021-04-11 06:27 | NUR ---
NO CHANGES OVERNIGHT. NINI RECEIVED ROXYNOL TWICE OVERNIGHT WITH GOOD RELIEF
--- NOTE | 2021-04-11 14:40 | NUR ---
Spiritual care visit conducted. Provided companionship, therapeutic listening and prayer. Patient responds well and shows signs of an elevated mood.
--- NOTE | 2021-04-11 16:57 | NUR ---
04/11/21- spoke with Osiris at [place]. She asked about the pt's dementia diagnosis and we discussed her alcohol needs. They will come and do an assessment on her tomorrow. -bernarda
--- NOTE | 2021-04-11 18:41 | NUR ---
SHIFT SUMMARY PT AWAKE AND ALERT MOST OF DAY BUT DOZING AFTER PAIN MEDS GIVEN. INCONTINENT OF URINE AND STOOL. TURNS SELF IN BED AND SITS UP UPON REQUEST. PROVIDED LIQUIDS AND FOOD SHE WISHES. POSITIONS SELF FOR COMFORT.
--- NOTE | 2021-04-11 19:59 | NUR ---
therputic visit pt comfortable brought her some lavender.
--- NOTE | 2021-04-12 05:21 | NUR ---
SHIFT SUMMARY PATIENT ALERT AND ORIENTED X3. MEDICATED PER EMAR FOR PAIN. NO COMPLAINTS OF SHORTNESS OF BREATH. NO ACUTE ISSUES NOTED OVERNIGHT. BED IN LOWEST POSITION WITH WHEELS LOCKED AND ALARM ON. CALL LIGHT WITHIN REACH. REPORT GIVEN TO ONCOMING RN.
--- NOTE | 2021-04-12 11:37 | NUR ---
04/12/21- received call from Osiris with [facility], She reports that they are not able to take the pt because they do not have a RN on staff to help manage her wound. Updated Dr. Day and LIAN. [facility] is still reaching out to other facilities in the state to see if they are able to take her. -bernarda
--- NOTE | 2021-04-12 16:20 | NUR ---
CHANGED LEFT FOOT/LEG DRESSING USING XEROFORM, ABD PAD , KERLIX AND PRERNA. CLEANED WITH WOUND INFORMATICIST. DID NOT TOLERATE WELL. MEDICATED FOR PAIN.
--- NOTE | 2021-04-12 18:19 | NUR ---
ALERT. ORIENTED. DENIES ANY PAIN. HAS BEEN; LETHARGIC, N/V, NICHOLSON AND DIAPHORETIC FOR ABOUT 1.5 WEEKS. S.O. POSITIOVE FOR COVID. POOR APPETITE. LOST ABOUT 15 POUNDS. ABLE TO MAKE HER NEEDS KNOWN. WCTM
--- NOTE | 2021-04-12 18:23 | NUR ---
ALERT. ORIENTED. MEDICATED FOR PAIN T/O SHIFT. DRESSING TO LT LEG CHANGED. AWAITING PLACEMENT. DRINKS BEER T/O THE DAY. ABLE TO MAKE NEEDS KNOWN. WCTM
--- NOTE | 2021-04-12 19:41 | NUR ---
pt comfortable brought her stuffed toy for stimulus. will continue to monitor and support her.
--- NOTE | 2021-04-13 05:58 | NUR ---
SHIFT SUMMARY PATIENT ALERT AND ORIENTED X2. MEDICATED NEEDED PER EMAR FOR PAIN. SLEPT WELL OVERNIGHT. BED IN LOWEST POSITION WITH WHEELS LOCKED AND ALARM ON. CALL LIGHT WITHIN REACH. REPORT GIVEN TO ONCOMING RN.
--- NOTE | 2021-04-13 07:49 | NUR ---
COMFORT CARE ASSESSMENT PT DECLINED BEING REPOSITIONED. MEDICATED PER ORDERS FOR PAIN. PROVIDED ICE CHIPS AND PUDDING PER PT REQUEST. DENIES ANY OTHER NEEDS AT THIS TIME.
--- NOTE | 2021-04-13 07:50 | NUR ---
COMFORT CARE ASSESSMENT PT DECLINED BEING REPOSITIONED AT THIS TIME. PROVIDED PUDDING AND ICE CHIPS PER PT REQUEST. MEDICATED PER ORDERS FOR PAIN. DENIES ANY OTHER NEEDS AT THIS TIME.
--- NOTE | 2021-04-13 10:01 | NUR ---
04/13/21- called and [facility] for [facility] to see if [facility] have any hospice bed available. Requested call back. -bernarda
--- NOTE | 2021-04-13 12:45 | NUR ---
04/13/21- called and [facility] for [facility] to see if they have any hospice bed available. Requested call back. Dr. Ng has advanced pt's diet for comfort. -[email or web address]
--- NOTE | 2021-04-13 13:54 | NUR ---
PT SLEEPING DOES NOT APPEAR TO BE IN ANY DISTRESS AT THIS TIME. CALL LIGHT IN REACH.
--- NOTE | 2021-04-13 15:48 | NUR ---
CHANGED DRESSING TO LLE PER ORDERS. PREMEDICATED PT FOR PAIN. PT HAD DIFFICULTY TOLERATING, CRYING OUT BUT WAS COOPERATIVE WITH CARE.
--- NOTE | 2021-04-13 17:13 | NUR ---
SUMMARY NO ACUTE CHANGES T/O SHIFT. MEDICATED PT PER ORDERS T/O SHIFT FOR PAIN. VOIDING AND HAD BM. REC'D BEDBATH BY DRILL INSTRUCTOR THIS SHIFT. REPOSITIONED T/O DAY. CHANGED DRESSING TO LLE PER ORDERS; VERY PAINFUL FOR PATIENT BUT PT COMPLIANT WITH CARE. PT PLEASANT AND COOPERATIVE. CALL LIGHT IN REACH. AWAITING PLACEMENT.
--- NOTE | 2021-04-13 18:36 | NUR ---
pt more frail sleeping more today.
--- NOTE | 2021-04-14 06:43 | NUR ---
SHIFT SUMMARY PT IS A 65 Y/O FEMALE, ADMITTED FOR [facility] AND CURRENTLY ON COMFORT CARE AWAITING PLACEMENT. SHE IS A&O X 3, BEDREST, CONT/INC. SHE WAS MEDICATED 2X FOR PAIN. NO C/O NAUSEA OR SOB. NO ACUTE CHANGES IN PT CONDITION NOTED. WILL CONTINUE TO MONITOR AND TREAT PER EMAR UNTIL HAND OFF TO DAY SHIFT RN.
--- NOTE | 2021-04-14 14:00 | NUR ---
Case conf note: Spoke with pt's RN re: s/s, PO intake general status and plan. Pt sleeping a lot per RN. When I looked in earlier pt was sound asleep and I did not wake her either. ANGER CONTROL COUNSELOR had been in room just now and pt reported increased pain and requested pain medication. RN on her way to obtain and administer. Current medication regime is managing pt's s/s well at this time per RN. Pal Care to remain available prn.
--- NOTE | 2021-04-14 17:15 | NUR ---
SHIFT SUMMARY PT AXO TO SELF, FAMILY AND PLACE AND MAKES NEEDS KNOWN. PLEASANT AND COOPERATIVE WITH CARE. HAS BEEN SLEEPING HEAVILY BETWEEN ROUNDING AND PATIENT ALWAYS SAYS HER PAIN IS A 10/10 MEDICATED PER EMAR. DRESSING CHANGED TO LLE. BEDPAN TO VOID. TURNED AND CHANGED Q2 AND PRN. BED IN LOW POSITION, CALL LIGHT WITHIN REACH.
--- NOTE | 2021-04-15 04:47 | NUR ---
SHIFT SUMMARY COMFORT CARE. AOX3. ANSWERS QUESTIONS APPROPRIATELY, FOLLOWS DIRECTIONS. REPORTS 06/10 PAIN "ALLOVER" & IN LLE WOUND, MEDICATED 2X c 20MG ROXANOL & PT ABLE TO REST COMFORTABLY. DRESSING CHANGED ON DAY SHIFT & STILL C/D/I. DENIES N/V OR SOB. AWAITING PLACEMENT. CALL LIGHT IN REACH & PT ABLE TO MAKE NEEDS KNOWN. WCTM.
--- NOTE | 2021-04-15 14:37 | NUR ---
WOUND DRESSING CHANGED. LITTLE DRAINAGE ON PREVIOSU DRESSING. PT TOLERATED WELL, SOME PAIN DURING THIS TIME. MEDICATED PER EMAR.
--- NOTE | 2021-04-15 16:23 | NUR ---
SHIFT SUMMARY PT REMAINS ON COMFORT CARE. PAIN MEDICATIONS ADMINISTERED X2, PT APPEARS TO BE COMFORTABLE AND SLEEPING MOST OF THE DAY. DRESSING CHANGED ON LLE. INCONT OF URINE @ TIMES, OCCASIONALLY CALLS FOR BEDPAN. PT PREFERS TO REMAIN IN SUPINE POSITION c HIPS FLOATED AND BLE ELEVATED ON A PILLOW. LITTLE ORAL INTAKE THIS SHIFT.
--- NOTE | 2021-04-16 04:36 | NUR ---
SHIFT SUMMARY A/O 2-3, ANXIOUS AT TIMES. PT SPEAKS VERY QUIETLY BUT IS ABLE TO MAKE NEEDS KNOWN AND USES CALL LIGHT APPROPRIATELY. MEDICATED FOR PAIN AND ANXIETY PER EMAR. NO ACUTE CHANGES AT THIS TIME. BED IN LOWEST POSITION WITH CALL LIGHT IN REACH. WILL CONTINUE TO MONITOR AND REPORT TO ONCOMING RN.
--- NOTE | 2021-04-16 18:09 | NUR ---
SUMMARY: PT CONTINUES ON COMFORT CARE. A/O, SLOW TO RESPOND. PT SLEPT MOST OF THE DAY AND WAS MORE ALERT THIS AFTERNOON. DID NOT EAT OR DRINK VERY MUCH. MEDICATED FOR PAIN X1, OTHERWISE PT APPEARED COMFORTABLE. NO ACUTE SAFETY CONCERNS, WILL REPORT TO NOC RN.
--- NOTE | 2021-04-16 20:00 | NUR ---
ASSUMED CARE. AOX3, SOFT SPOKEN, FRAIL, FATIQUED. WEAK. BARELY STAYS AWAKE. DECREASE IN APPETITE, ONLY BITES OF DINNER EATEN. PAIN ALL OVER 10/10, WILL MEDICATE. SIPS OF WTER, JUICE AND BEER BUT DOES NOT TAKE DOWN VERY MUCH. SKIN AND BONE, PAIN IS IN THE LLE WOUND THAT IS CURRENTLY WRAPPED AND CDI. REPOSITIONED. DENIED ANY NEEDS AT THIS TIME. CALL LIGHT IS IN REACH.
--- NOTE | 2021-04-16 21:35 | NUR ---
brief visit today pt comfortable and stable
--- NOTE | 2021-04-17 06:18 | NUR ---
SHIFT SUMMARY: PT VERY FRAILE SOFT SPOKEN, FATIQUED, DECREASE IN APPETITE. PAIN MEDS HAVE BEEN GIVEN X2, [facility] APPEARS TO PROVIDE BETTER COVERAGE. SHE TENDS TO SLEEP FOR SEVERAL HOURS AFTERWARDS. NO NAUSEA. ONLY HAS HAD SIPS OF HER BEER, EMPTIED 2 WARM CANS IN SINK. DOES NOT LIKE TO MOVE HER RLE DUE TO PAIN. ELEVATED ON PILLOWS. COMFORT HAS BEEN MAINTAINED T/O THE SHIFT. REPOSITIONED PRN. NO ACUTE CHANGES. CALL LIGHT IN REACH.
--- NOTE | 2021-04-17 10:31 | NUR ---
PATIENT AWAKE BUT DROWSY. DENIES PAIN AT THIS TIME, STATES SHE IS COLD, WARM BLANKET GIVEN. NO OTHER C/O AT THIS TIME. MEDS ADMINISTERED PER RX.
--- NOTE | 2021-04-17 15:30 | NUR ---
WENT TO VISIT PT TODAY, HER SISTER IS AT THE BEDSIDE. PT STATES SHE'S HAPPY HER SISTER IS HERE, BUT SHE'S WINCING WITH EVEN SLIGHT MOVEMENT. SHE IS ALLOWED TO HAVE PRN ROXANOL AT THIS TIME, AND I ASKED IF SHE WOULD LIKE THAT. SHE STATES SHE WOULD, AND REPORTS "ALL OVER PAIN" AT A 9/10. GAVE 20MG ROXNAOL SUBLINGUAL, WILL CHECK PAIN LEVEL AGAIN WITHIN THE HOUR,
--- NOTE | 2021-04-17 18:20 | NUR ---
Update 04/17/21: Requested that Samantha with [facility] and Osiris with [facility] re-evaluate pt. [facility] now has a Medicaid bed available and there is the potential at this point for pt. to no longer be prescribed the beer daily. [facility] nurse was concerned regarding wound care. I am wondering if she was possibly reviewing the original H&P which indicated that the wound required much more extensive care than it currently does. Hospice could also assist with the dressing changes as needed. [facility] is willing to re-evaluate with the most recent updates on the wound. I will fax that information to Osiris tomorrow morning.
--- NOTE | 2021-04-17 22:02 | NUR ---
PT ALERT TO SELF REPORTS GENERALIZED PAIN REPOSITIONED IN BED HOB @30 STANDBY ASSIST WITH MEDICATIONS SMALL SIPS WATER AND PUDDING. PT REPORTS SOME RELIEF WITH REPOSITIONED. RESTING COMFORTABLLY RESPIRATIONS EVEN UNLABORED. CALL LIGHT WITHIN REACH BED LOWERED.
--- NOTE | 2021-04-18 02:06 | NUR ---
PT RESTING RESPIRATIONS EVEN UNLABORED REPOSITIONED TO RIGHT SIDE. CALLL LIGHT WITHIN REACH BED LOWERED.
--- NOTE | 2021-04-18 03:06 | NUR ---
PT REPORTS 7/10W GENERALIZED PAIN. PRN PAIN MEDICATION GIVEN.
--- NOTE | 2021-04-18 04:43 | NUR ---
PT AWAKE DRINKING ETOH REPOSITIONED PULLED UP IN BED PT DENIES PAIN AT THIS TIME. DENIES SOB. CALL LIGHT WITHIN REACH BED LOWERED.
--- NOTE | 2021-04-18 05:09 | NUR ---
SHIFT SUMMARY: COMFORT CARE PT A&OX3 WAITING PLACEMENTAT MAG ECHOLS VACCINATION RECEIVED 04/17 RECORDS IN CHART. PT REPORTS INTERMITTENT PAIN T/O SHIFT PRN GIVEN. PT SWALLOWED PILLS WHOLE WITH SMALL SIPS OF JUICE OR PUDDING. PT HAS LEFT LE WOUND FOLLOWED BY WOUND CARE. PT IS IN AN ATTEND AND IS INCONT. OF BOTH URINE AND STOOL. CALL LIGHT IS WITHIN REACH AND PT USES APPROPERIATELY. BED LOWERED. PT RESTING RESPIRATIONS SHALLOW EVEN UNLABORED.
--- NOTE | 2021-04-18 06:09 | NUR ---
PT RESTING COMFORTABLY ATTEND IS CLEAN DRY PT DECLINED BEING REPOSITIONED. CALLLIGHT WITHIN REACH BED LOWERED.
--- NOTE | 2021-04-18 10:54 | NUR ---
PT SLEEPING, REST EVEN UNLABORED
--- NOTE | 2021-04-18 10:55 | NUR ---
PT RESTING WITH EYES CLOSED, RESP EVEN UNLABORED
--- NOTE | 2021-04-18 17:22 | NUR ---
PT IS LYING IN BED, APPEARS RELAXED. SHE REPORTS FEELING "LONELY", SO I STAYED AND VISITED A WHILE. SHE DID REMINISCE AGAIN TODAY, TALKING ABOUT GROWING UP WITH HER MOM AND DAD, BROTHERS AND SISTERS. SHE TALKED ABOUT HER SISTER, AND STATES SHE UNDERSTANDS SHE CANNOT LIVE WITH HER DUE TO HAVING HIGHER ACCUITY CARE NEEDS, BUT THEN SHE STATES SHE DOESN'T KNOW WHY SHE CAN'TJUST "TRY IT", AND SEEMS TO FORGET THEY HAVE ALREADY TRIED THIS ONE BEFORE, AND ASKED IF SHE WAS ABLE TO REMEMBER THAT? SHE SAID SHE DOESN'T. NO OTHER ISSUES IDENDIFED TODAY.
--- NOTE | 2021-04-18 18:00 | NUR ---
Update 04/18/21: Pt. previously denied by [facility] due to wound care need. Please see previous notes for details. The need is very minimal for wound care at this time. Will fax Osiris at [facility] updated wound documentation from Dr. Liu tomorrow am. [facility] is willing to reconsider accepting pt. Hospice can likely assist with minimal wound care as well.
--- NOTE | 2021-04-18 18:54 | NUR ---
PT MEDICATED FOR GEN PAIN AND PRE DRESSING. CHANBED LLE DREG WITH XEREFORM POST CALF, GOOD EPITHELIAL TISSUE, MOD BLEEDING WHEN OLD XEREFORM REMOVED, DRESSING CHANGE PAINFUL PT CRIED THROUGH PROCEDURE. WOVEN XEROFORM THROUGH THE TOES. PT REPOSITIONED, CALMED SOON AFTER PROCEDURE WITH RN/CLINIC CLERK REASSURANCE AND DISTRACTION AND CONVERSATION.
--- NOTE | 2021-04-18 18:56 | NUR ---
SUMM- PT SLEPT MOST OF THE DAY. AWAKENS FOR MEALS AND FEEDS SELF. OXYCODONE AND ATIVAN FOR PAIN AND ANXIETY. ON EGG CRATE, USES BEDPAN AND IS CONTINENT. COCCYC WITH MEPILEX INTACT. PLAN FOR [facility] IN A FEW DAYS.
--- NOTE | 2021-04-18 20:50 | NUR ---
PT AOX1 C/O GENERAIZED PAIN REPOSTIONED, PRN PAIN MEDICATION GIVEN ATTEND CHANGE MEDPLEX TO COCCYX INTACT APPLIED LOTION CALL LIGHT WITHIN REACH BED LOWERED
--- NOTE | 2021-04-18 22:35 | NUR ---
PT DECLINED REPOSITIONING REQUESTED ICE CREAM DENIES PAIN AT THIS TIME.
--- NOTE | 2021-04-18 23:50 | NUR ---
PT REQUESTED PAIN MEDICATION 9/10W GENERALIZED PAIN PRN GIVEN. DENIES SHORTNESS OF BREATHE REPOSITION UP IN BED ATTEND IS C/D/I PLACED PILOWS UNDER PT COMFORTABLE CALL LIGHT WITHIN REACH BED LOWERED.
--- NOTE | 2021-04-19 02:46 | NUR ---
PT REQUESTED PAIN MEDICATION ATTEND IS C/D/I INCOURAGE PO FLUIDS PT HAD SMALL SIPS AND CHIPS OF ICE.
--- NOTE | 2021-04-19 04:51 | NUR ---
SHIFT SUMMARY: COMFORT CARE PT A&0X2 PT USES CALLLIGHT APPROPERIATELY TO EXPRESS NEEDS RESTING COMFORTABLY RESPIRATIONS SHALLOWS REGULAR INCONT.X1 BM AND SMALL AMOUNT OF URINE @0450 MEDPLEX INTACK. PT REQUESTED PUDDING AND ICE CHIPS. PT REPOSITIONED IN BED FEET ELEVATED WARM BLANKET GIVEN. PT WILL REQUEST STUFFED ANIMAL WHEN COMPLETE. CALL LIGHT WITHIN REACH BED LOWERED
--- NOTE | 2021-04-19 08:37 | NUR ---
Update 04/19/21: Faxed updated notes to [facility] for review. [facility] previously did not have a Medicaid bed available. I have reached back out to them for an update on availability.
--- NOTE | 2021-04-19 14:08 | NUR ---
Pt lying in bed as usual, as she is bed bound. The nurse was present when I arrived for the visit, when suddenly the patient began to cry out, stating something was hurting her L foot. There is nothing touching her foot, or near her foot. She describes it as a shooting pain. Likely neuropathic. Pt still has 4th dose of gabapentin available daily as a prn. Bedside RN gave pain medication already. Will discuss use of gabapentin as prn for neuropathy. No changes to care plan or otherwise.
--- NOTE | 2021-04-19 18:27 | NUR ---
SHIFT SUMMARY PATIENT IS ALERT AND ORIENTATED X2. PATIENT USES CALL LIGHT APPROPRIATELY FOR NEEDS. MAKES NEEDS KNOWN. PATIENT HAS BEEN DROWSY MOST OF SHIFT. RESTING COMFORTABLY CURRENTLY BUT HAS USED ROXINOL FOR PAIN 3X THIS SHIFT. PATIENT HAS REQUESTED ICE CHIPS AND TAKES MEDS WHOLE WITH SIPS OF WATER. NO ACUTE EVENTS THIS SHIFT. VITAL SIGNS REVIEWED. CALL LIGHT IN REACH. BED IS LOCKED IN LOWEST POSITION. WILL CONTINUE TO MONITOR UNTIL SHIFT CHANGE.
--- NOTE | 2021-04-20 05:53 | NUR ---
SUMMARY PT HAS REMAINED COMFORTABLE T/O SHIFT. PT HAD NO NEW ISSUES NOTED. PT PAIN TX PER EMAR W/ RELIEF. PT CURRENTLY SLEEPING IN NO DISTRESS. CALL LIGHT IN REACH AND BED ALARM ON.
--- NOTE | 2021-04-20 11:12 | NUR ---
REPORT RECIEVED FROM XIMENA BLACK ON PT. ALL PERSONAL ITEMS TRANSFEREED WITH PT. UPON TRANSFER TO [facility] @10:30, PT VS ASSESSED WITHIN LIMITS. COMFORT CARE PROVIDED: PT ASSISTED WITH ATTENDS CHANGE AND BEDPAN, MINIMAL URINATION. SKIN INTACTED, WOUND PAD CHANGED. PT ITEMS REQUESTED WITHIN REACH OF PT. PT STATES COMFORTABLE, WARM AND CONTENT WITH TRANSFER AND NEW ROOM ACCOMIDATIONS. END NOTE-[facility].RDS.
--- NOTE | 2021-04-20 11:28 | NUR ---
PT REPOSITIONED 1125. ORSC.RDS
--- NOTE | 2021-04-20 11:32 | NUR ---
HEAD-TO-TOE ASSESSMENT COMPLETED 1130.PATIENT IS ALERT AND ORIENTATED X2. PATIENT USES CALL LIGHT APPROPRIATELY FOR NEEDS. MAKES NEEDS KNOWN. PATIENT HAS BEEN DROWSY MOST OF SHIFT. RESTING COMFORTABLY CURRENTLY BUT HAS USED ROXINOL FOR PAIN JUST BEFORE TRANSFER AND WAS REASSESSED AT 1030,VS WITHIN NORMAL LIMITS AT BEGINNING TIME OF ADMISSION THIS SHIFT. PATIENT HAS REQUESTED ICE CHIPS AND TAKES MEDS WHOLE WITH SIPS OF WATER. NO ACUTE EVENTS THIS SHIFT. VITAL SIGNS REVIEWED. CALL LIGHT IN REACH. BED IS LOCKED IN LOWEST POSITION. WILL CONTINUE TO MONITOR UNTIL SHIFT CHANGE. END NOTE-ORSC.RDS
--- NOTE | 2021-04-20 12:09 | NUR ---
PT REPOSTITIONED, HAIR BRUSHED, LOTION APPLIED, BRIEF CHANGED AND BED MASON UTILIZED- 100CC URINARY OUTPUT. URINE YELLOW,CLEAR WITHOUT FOUL ODOR. PT STATES PAIN LEVEL CURRENTLY TOLLERABLE. END NOTE ORSC.RDS.
--- NOTE | 2021-04-20 17:38 | NUR ---
Pt remains on comfort care. No changes made to her plan of care today.
--- NOTE | 2021-04-20 20:21 | NUR ---
PATIENT RESTING IN BED, HAS C/O PAIN IN LEFT LEG. 06/10. ASSESMENT COMPLETED, HEART REGULAR, LUNGS CLEAR, ABD SOFT +BOWEL SOUNDS. PROVIDED ORAL CARE, PATIENT STATES SHE IS HUNGRY AND WOULD LIKE A SANDWICH. PILLOWS ADJUSTED, CALL LIGHT WITHIN REACH, BED IN LOW LOCK POSITION,WILL PROVIDE FOOD REQUESTED, AND CONTINUE TO MONITOR AND TREAT FOR PAIN.
--- NOTE | 2021-04-20 22:53 | NUR ---
PT SLEEPING, APPEARS COMFORTABLE IN BED. I WOKE HER TO RE-POSITION AND ASSESS PAIN, PT RESISTANT TO MOVE, I RE-ADJUSTED PILLOWS AND OFFERED WARM BLANKET.FLACC 0. NO PAIN MEDICATION GIVEN AT THIS TIME, CALL [facility] WITHIN REACH, WILL CONTINUE TO MONITOR AND ALLOW TO REST.
--- NOTE | 2021-04-21 02:01 | NUR ---
PT REPOSITIONED Q2HRS THROUGHOUT THE NIGHT. SKIN INTACT, REMOVED ONE OF 3 BLANKETS PT WAS TO WARM.
--- NOTE | 2021-04-21 02:04 | NUR ---
PT REPOSITIONED Q2HRS THROUGHOUT THE NIGHT. REMOVED 1 OF 3 BLANKETS PT WAS TO WARM. ORAL CARE DONE.
--- NOTE | 2021-04-21 05:43 | NUR ---
PT SLEPT WELL THROUGH THE NIGHT, WOULD AROUSE WITH REPOSITIONING EVERY 2 HOURS. PO INTAKE ENCOURAGED WITH EVERY REPOSITION. CALL LIGHT IN REACH, BED IN LOW, LOCKED POSITION.
--- NOTE | 2021-04-21 06:10 | NUR ---
CHECKED DEPENDS AND IT WAS DRY. PT ONTO BEDPAN EARLIER IN THE NIGHT.
--- NOTE | 2021-04-21 08:05 | NUR ---
PT IS SITTING UP IN HER BED.BREAKFAST ON TRAY NEXT TO HER BED ON RIGHT. REQUESTING TO USE BEDPAN. WEARING BEANIE AND HAS SWEATER ON. PT ABLE TO COMMUNICATE W/O DIFF. ABLE TO MAKE HER WISHES KNOWN. WILL CHECK ON MEDS FOR DISCOMFORT SHE C/O PAIN IN LEFT LEG. ABLE TO ROLL TO RIGHT TO ASSIST ONTO BEDPAN W/O DIFF. URINATED W/O DIFF. YELLOW URINE NOTED- APPROX 60 CC. BREAKFAST TRAY IN REACH AND CALL BUTTON ACCESSABLE. HEATING PAD/WATER FILLED UNDER PAT FOR COMFORT.
--- NOTE | 2021-04-21 10:10 | NUR ---
MA STATES NOTE NEW RED SPOT ON RIGHT SIDE/HIP AREA THAT WAS NOT THERE YESTERDAY. WILL KEEP AN EYE ON THIS AREA FOR BREAKDOWN. MA PROVIDE POSITION CHANGE Q 2 HOURS BUT PT ROLLS BACK TO PREFERRED POSITION (ON BACK) THOUGH NOT ADVISED.
--- NOTE | 2021-04-21 11:45 | NUR ---
PT REPOSITIONED ONTO LEFT SIDE. PILLOW PLACED UNDER CHUX, AND BETWEEN KNEES. WARM BLANKETS GIVEN FOR COMFORT. CHANGED OUT PILLOW CASE THAT WAS DAMP FROM POSSIBLE BEVERAGE SPILLAGE DURING MEAL. PT RESTING. N/C OF PAIN.
--- NOTE | 2021-04-21 12:26 | NUR ---
PT IS RESTING COMPFORTABLY, EATING HER LUNCH, SHE DID REQUEST TO USE THE BED MASON AND WAS SUCCESSFUL SEE I&O. CALL LIGHT IS IN REACH.
--- NOTE | 2021-04-21 15:06 | NUR ---
IN TO ASSESS PT, SHE IS WORKING ON AN ADULT COLORING SHEET, SHE ASKSFORICE CHIP AND THEY WERE GIVEN TO HER, SHE STATES SHE IS COMFORTABLE AND HAS NO OTHER NEEDS AT THIS TIME.
--- NOTE | 2021-04-21 17:29 | NUR ---
PT WAS DELIVERED HER DINNER AND HAS NO REQUESTS AT THIS TIME.
--- NOTE | 2021-04-21 18:34 | NUR ---
PT WAS AWAKE MOST OF THE DAY. SHE ENJOYED COLORING. SHE HAD NO COMPLAINTS AND STATES OFTEN THAT SHE IS DOING GOOD. SEE NOTES FOR SKIN CARE DONE DURING SHIFT.
--- NOTE | 2021-04-21 20:16 | NUR ---
PATIENT HAS DECUBITUS ULCER ON COCCYX AND RT BUTTOCK. ALLEVYN LIFE WOUND PAD IN PLACE, CDI.
--- NOTE | 2021-04-22 02:05 | NUR ---
PATIENT IS SLEEPING AND APPEARS COMFORTABLE AT THIS TIME. WE WILL WAIT TO REPOSITION HER AT THIS TIME
--- NOTE | 2021-04-22 09:30 | NUR ---
PT HAD SMALL BM. USED BEDPAN FOR URINE- APPROX 60CC. REPOSITIONED ON LEFT SIDE, PILLOW BETWEEN HER KNEES FOR PREVENT PRESSURE ON BONY PROMINENCES. LOTION APPLIED TO LEGS. REQUESTED TO CALL HER SISTER. MUCINX GIVEN- HELP HER CHEST CONGESTION. DIFF COUGHING WITH MUCH FORCE BUT ABLE TO GET UP CLEAR MUCUS. SEEMS MORE COMFORTABLE ON LEFT SIDE AT THIS TIME.
--- NOTE | 2021-04-22 12:15 | NUR ---
PT RESTING/SLEEPING POST LUNCH
--- NOTE | 2021-04-22 12:35 | NUR ---
POSTITION CHANGE DONE AT 1000. USED BED MASON JUST PRIOR TO LUNCH. POSITION CHANGE AFTER, ADJUSTED POSITION FOR MEAL AT NOON
--- NOTE | 2021-04-22 14:40 | NUR ---
PT IS AWAKE AND RELAXING, NO COMPLAINS OR NEEDS AT THIS TIME.
--- NOTE | 2021-04-22 17:16 | NUR ---
DRESSING WAS REMOVED FROM LLE. WOUND CARE DONE AND REDRESSED PER ORDERS. PT WAS GIVEN 5MG OF MORPHINE SL (SEE EMAR) THE INITIAL DRSG REMOVAL CAUSED DISCOMFORT. ONCE MORPHINE BECAME EFFECTIVE RESUMED DRSG CHANGE AND PT TOLERATED WELL. PT SMILING AND WAS GIVEN HER FOOD TRAY. SHE WAS IN GOOD SPIRITS.
--- NOTE | 2021-04-22 20:19 | NUR ---
PATIENT HAD SMALL,BROWN,STICKY BM. ATTENDS CHANGED AND PT CLEANED, WOUND COVERING INTACT AND CLEAN. PATIENT REPOSITIONED AND REQUESTED PUDDING.
--- NOTE | 2021-04-23 04:01 | NUR ---
PATIENT AWAKE C/O PAIN "ALL OVER" RATES AT 9/10. MEDICATED PER ORDERS.
--- NOTE | 2021-04-23 05:52 | NUR ---
PATIENT SLEPT THROUGHOUT MOST OF SHIFT. USES CALL LIGHT WHEN SHE NEEDS SOMETHING. C/O PAIN AND WAS MEDICATED PER EMR. SMALL BOWEL MOVEMENT AT BEGINNING OF SHIFT, ASKS TO BE PUT ON BEDPAN. CALL LIGHT WITHIN REACH.
--- NOTE | 2021-04-23 09:15 | NUR ---
Update 04/20/21: I had a good conversation with the director of [facility] today. We agreed that pt. would be best served at [facility] rather than the hospital at this time. I sincerely believe that Jazzmine will be a shea for staff to care for at [facility]. [facility] has agreed to accept Jazzmine. Earliest possible placement would be Friday or Friday next week. I will follow-up with [facility] to find out a time line on Friday. I will need to reach out to Jazzmine's sister and manager case Christiano with [employer] as well.
--- NOTE | 2021-04-23 14:41 | NUR ---
RN CALL TO NETTE REQUESTING ORDERS FOR WOUND CARE REASSESSMENT AND CONSULTATION @ 1400.
--- NOTE | 2021-04-23 15:19 | NUR ---
NOTE FROM 0735.PATIENT RESTING IN BED, HAS C/O PAIN IN LEFT LEG. 03/10. ASSESMENT COMPLETED, HEART REGULAR, LUNGS CLEAR, ABD SOFT + ACTIVE BOWEL SOUNDS. PROVIDED ORAL CARE . PILLOWS ADJUSTED, CALL LIGHT WITHIN REACH, BED IN LOW LOCK POSITION,WILL PROVIDE FOOD REQUESTED, AND CONTINUE TO MONITOR AND TREAT FOR PAIN.
--- NOTE | 2021-04-23 19:18 | NUR ---
PT IS RESTING IN THE BED AT THIS TIME. PT IS ATTEMPTING TO VOID USING THE BED MASON. PT DENIES NAUSEA. PT HAS PO FLUIDS AT BEDSIDE. VSS. CALL LIGHT IN REACH
--- NOTE | 2021-04-23 19:24 | NUR ---
TRANSFER OF CARE AND REPORT GIVEN VERBALLY TO RN NEXT SHIFT. NORCO PROVIDED AND REASSESSMENT COMPLETED. PT RESTING COMFORTABLY IN CLEAN BEDDING WITH CLEAN ATTENS. RDS
--- NOTE | 2021-04-23 23:56 | NUR ---
PT IS RESTING WITH EYES CLOSED AT THIS TIME. PT HAS BEEN REPOSITIONED EVERY 2 HOURS AND USED THE BED MASON APPROXIMATELY 4 TIMES (SEE I&O AND ADL'S). PT HAS CALL LIGHT IN REACH.
--- NOTE | 2021-04-24 01:56 | NUR ---
REMOVED EXTRA BLANKETS FOR COMFORT.
--- NOTE | 2021-04-24 04:58 | NUR ---
RN ASSISTED PT TO USE THE BED MASON. PT VOIDED ABOUT 100ML YELLOW URINE. PT REPOSITIONED FOR COMFORT. VSS. WARM BLANKETS PROVIDED. CALL LIGHT IN REACH. WATER AND FRESH ICE AT BEDSIDE. BED IS IN THE LOWEST, LOCKED POSITION.
--- NOTE | 2021-04-24 05:44 | NUR ---
PT CURRENTLY RATES PAIN 6/10 AND "GETTING BETTER." PT STATES HER PAIN IS IN HER NECK. PILLOWS REPOSITIONED. PT STATED SHE WAS FEELING HUNGRY AND REQUESTED A PUDDING. SNACK AND BEVERAGES PROVIDED. WARM BLANKETS PROVIDED. CALL LIGHT IN REACH.
--- NOTE | 2021-04-24 06:04 | NUR ---
PT SLEPT WELL THROUGHOUT THE NIGHT. PT REPOSITIONED Q2 HOURS. PT USED THE BED MASON SEVERAL TIMES AND WAS ABLE TO VOID SMALL AMOUNTS OF CLEAR YELLOW URINE. PT AWOKE AT 0430 WITH NECK PAIN 06/10. RN TREATED PAIN WITH ORAL PAIN MEDICATION PER DR'S ORDERS. PT STATED SHE WAS HUNGRY AT 0500. RN PROVIDED SNACKS PER PT'S REQUEST. PT'S DRESSINGS ON LOWER BACK AND LEFT LEG ARE INTACT. LEFT LEG IS ELEVATED ON A PILLOW. PT WAS PLEASANT AND COOPERATIVE THROUGHOUT THE NIGHT AND MORNING.
--- NOTE | 2021-04-24 11:10 | NUR ---
VO TO CHESTER RAMIREZ FOR PT WITH CONTINUED OBSERVATION FOR INDICATIONS OF DTS. END NOTE ORSC.RDS
--- NOTE | 2021-04-24 13:07 | NUR ---
WOUND DRESSING CHANGE LEFT LEG,HIP RIGHT AND TAILBONE. WOUND STATUS UNCHANGED.
--- NOTE | 2021-04-24 15:09 | NUR ---
MANAGER ASSURANCE REPORTED ELEVATED PT SLIGHTLY TEMPERATURE 99.2. I ASKED HER TO INCREASE V/S ASSESSMENTS TO EVERY TWO HOURS WITH EXTRA ATTENTION TO TEMP. SHE REMOVED HER STOCKING CAP. HER HEAT PAD WAS REDUCED IN TEMPERATURE AND ONE OF FIVE BLANKETS WAS REMOVED. ORSC.RDS
--- NOTE | 2021-04-24 17:35 | NUR ---
Met with pt today; she remains on comfort care, but the change of room/scenery seems to have done her good. She also appears to be doing better without her daily beers. She has also been requiring less morphine for breakthrough pain, per bedside RN today. No changes to pt's care plan at this time.
--- NOTE | 2021-04-24 19:20 | NUR ---
CHANGE OF SHIFT COMPLETE. REPORT FOR PT GIVEN TO MUNIR BUENO. PT RESTING COMFORTABLY AND STATES THAT ALL NEEDS MET. END NOTE ORSC.RDS.
--- NOTE | 2021-04-25 05:41 | NUR ---
PT HAS HAD AN UNEVENTFUL SHIFT. WATCHED MOVIES UNTIL BOTTOM IRONER AND THEN SLEPT. VSS. LUNGS CLEAR. EATING AND DRINKING THROUGHOUT THE EVENING. DRESSINGS TO LLE, COCCYX AND SACCRUM REMAIN CLEAN DRY AND INTACT. VOIDED SMALL AMOUNTS OF CLEAR URINE VIA BEDPAN. NO CO PAIN OR DISCOMFORT.
--- NOTE | 2021-04-25 07:44 | NUR ---
PT C/O PAIN SHOULDERS,BACK,NECK. STATES 9/10. NORCO GIVEN. STATES LEFT LEG ITCHING. RUBBED LOTION ON LEG AROUND BANDAGE. STATES BETTER- THOUGH LEG STARTED HURTING. WILL DO DRESSING CHANGE LATER. PT ALERT. REQUESTING TO WATCH TV. URINATED, USING BEDPAN. OUTPUT APPROX 40CC- DARK YELLOW. ENCOURAGED HER TO DRINK MORE FLUIDS.
--- NOTE | 2021-04-25 08:22 | NUR ---
PT STATES PAIN 04/10. "TOO SOON TO WORK MUCH YET". PT JUST FINISHED EATING, 25%. NOT INTERESTED IN HER SCRAMBLED EGG OR ZUCCHINI BREAD WHICH SHE HAS HAD FOR THE PAST 7 DAYS SHE STATES. REQUESTING EGG OVER EASY AND MAYBE A PLAIN PIECE OF WHEAT BREAD. SHE REQUESTED TO WATCH A MOVIE-WESTERN, WHICH SHE IS WATCHING. SPIRITS APPEAR TO BE BETTER NOW THAN 30+ MINUTES AGO WHEN I GAVE HER THE NORCO. SHE ADDRESSED ME SWEETHEART AND IS SMILING.
--- NOTE | 2021-04-25 09:02 | NUR ---
STATES PAIN IS BETTER. MAYBE A 03/10
--- NOTE | 2021-04-25 11:15 | NUR ---
Update 04/25/21: Debbie with case management received call from Shira director [facility] yesterday evening. They are again declining to accept pt. Noting reason as wound care. At this point we will attempt to reach out for ICF/hospice placement at [facility]. Patient's condition has changed considerably since the first attempt to obtain placement. Debbie with care management has graciously agreed to assist with the Marya review process Update 04/23/21: We are still waiting to hear back from [facility] regarding assessment. Plan to contact [facility] tomorrow. Update 04/22/21: Per [facility] with [facility], she has contacted patient's sister and she has refused to sign for her. It appears that there might have been some confusion earlier on in coordination of care for patient in regards to POA. Jazzmine's sister is now stating that she does not have POA. I do not find one on file. Shahnaz is now concerned that she would have to accept finanacial responsibility for pt. if she were to sign for her. Debbie with [facility] care management is working to coordinate potential hospital assistance in obtaining a POA for pt. [facility] is now requesting an additional assessment of patient and is concerned with the family dynamics. They are performing assessment tomorrow and will be in contact after assessment.
--- NOTE | 2021-04-25 14:16 | NUR ---
PT HAS N.G. CHAPLAINS IN VISITING WITH HER AT THE MOMENT. SHE REQUESTED A SANDWICH PRIOR TO THEIR ARRIVAL. SHE IS IN GOOD SPIRITS AND APPEARS COMFORTABLE AND IS QUITE CONTENT AT THIS TIME.
--- NOTE | 2021-04-25 18:08 | NUR ---
PT APPEARS TO BE COMFORTABLE.
--- NOTE | 2021-04-25 18:09 | NUR ---
PT IS A 65 YR OLD FEMALE WHO IS BED BOUND. SHE DOES NOT ATTEMPT TO GET OUT OF BED. SHE IS CONSIDERED A HIGH FALL RISK. SHE HAS BEEN PLEASANT AND HAS HAD A GOOD DAY. SHE IS ON COMFORT CARE. CHAPLAINS FROM [facility] WERE IN TODAY FOR A VISIT. DIET TOLERATED. SHE HAS A HISTORY OF ETOH
--- NOTE | 2021-04-25 19:56 | NUR ---
DURING SHIFT ASSESSMENT I NOTICED THAT THE DRESSING ON HER LEFT FOOT HAD COME OFF AND THE FOOT WAS OPEN TO AIR WITH THE ZEROFORM WRAPPED AROUND THE TOES. I REDRESSED THIS WITH SOME STERILE KERLIX.
--- NOTE | 2021-04-25 21:26 | NUR ---
WENT IN TO REASSESS PAIN AND PATIENT WAS SLEEPING SO I DID NOT BOTHER HER
--- NOTE | 2021-04-26 01:03 | NUR ---
PATIENT SLEEPING. NO CHANGE OF POSITION AT THIS TIME.
--- NOTE | 2021-04-26 01:54 | NUR ---
CHECKED ON PATIENT, SHE IS STILL SLEEPING, APPEARS COMFORTABLE, CALL LIGHT WITHIN REACH. BED AT LOWEST SETTING WITH SIDE RAILS UPX3
--- NOTE | 2021-04-26 04:41 | NUR ---
PATIENT AWAKE, NEEDS BEDPAN TO URINATE AND AFTER THIS PROCESS IS COMPLETE SHE IS C/O PAIN IN HER LEGS AND HER LEFT RIB AREA. SHE RATES THE PAIN IN BOTH 9/10. SHE ASKS FOR PAIN MEDICATION. I ALSO ASK HER IF WE CAN REPOSITION HER IN BED AND SHE AGREES. WHILE REPOSITIONING HER THERE IS A SMALL SPOT OF DRIED BM ON HER SHEETS. A BED CHANGE IS DONE WITH HER ASSISTANCE. SHE IS AGAIN POSITIONED TO COMFORT WITH PILLOWS AND SHE VERBALIZES THAT SHE IS COMFORTABLE AT THIS TIME. PAIN MED GIVEN PER ORDER
--- NOTE | 2021-04-26 07:27 | NUR ---
WILL MEDICATE ACCORDING TO ORDERS NEEDED. WILL DO POSITION CHANGES TO ASSIST WITH COMFORT. HEATING PAD UNDER PT FOR COMFORT PER HER REQUEST/ORDERS.
--- NOTE | 2021-04-26 07:33 | NUR ---
PT AWAKE, ALERT, AND APPEARS ORIENTED. SHE APPEARS TO BE IN GOOD SPIRITS THOUGH SHE SEEMS FRUSTRATED BY HER CIRCUMSTANCES. LUNG SOUNDS ARE DIMINISHED T/O. ACTIVE BT. HRRR. POSITIONED ONTO HER LEFT SIDE. STATES THAT SHE IS HAVING PAIN- BACK, ARMS AND SHOULDERS. WILL LOOK TO SEE WHAT IS AVAILABLE/ORDERED FOR HER FOR PAIN CONTROL- SEE MARS. REQUESTING TO WATCH TV. STATES SHE HAD BM LAST NIGHT AND ABD FEELS BETTER. PREVIOUS SHIFT REPORTS BM X 3.
--- NOTE | 2021-04-26 11:08 | NUR ---
DISPITE STATING SHE IS HAVING PAIN 10/10 AND REQUESTING PAIN MEDICATION, SHE APPEARS TO BE IN GOOD SPIRITS. SHE REQUESTED A MEAT SANDWICH AND IS VERY TALKATIVE. OCCASIONAL COUGH- NON PRODUCTIVE. BREATH SOUNDS REMAIN DIMINISHED.
--- NOTE | 2021-04-26 12:35 | NUR ---
PT WAS TRANSFERRED FROM ROOM 405 TO 420. PT WAS HAVING INCREASED ANXIETY AND AGGITATION. THIS ROOM IS MORE CENTRALLY LOCATED, HAS A WINDOW LEADING TO THE NURSES STATION AND HAS A TV. IT ALSO HAS MORE ROOM AND HAS A RECLINER. THE HOPES IS TO HELP WITH ORIENTATION AND BEHAVIORS.
--- NOTE | 2021-04-26 14:01 | NUR ---
WOUND CARE DONE ORDERED. THIS CAUSES SIGNIF PAIN FOR PT. NO ODOR NOTED. COLOR IS RED, APPEARANCE OF RAW SKIN. WILL SEE IF SKIN ASSESS BY PHYSICIAN TO CHANGE DSSG CHANGE/MANAGEMENT.
--- NOTE | 2021-04-26 14:43 | NUR ---
Patient immediately tells me how tired she is of being in the hospital and how she is dealing with pain issues(although patient states that pain meds were recently given). Patient talks about her sister and brother and her hopes of going to live with her sister someday. I provide therapeutic listening and prayer. Patient responds well and shows signs of having and elevated mood. I will continue to remain available to patient and family.
--- NOTE | 2021-04-26 16:11 | NUR ---
CHANGE OF DEPENDS, USED BED MASON. MEDICATED FOR PAIN- SEE MARS
--- NOTE | 2021-04-26 16:23 | NUR ---
Introduction: PT requested visit. Assessment: PT presented upright in bed and groggy from just waking. When asked if it was ok to visit PT said yes, however she was in pain from having her foot rebandaged. PT related a conversation she had with her sister earlier in the day and seemed in good spirits, in regards to the phone call. 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 PT briefly mentioned her father, but abruptly became dismissive saying, "We aren't going to talk about him." PT seemed less jovial today and more cursory in thought, compared with previous visit. Intervention: PT was offered prayer. Outcome: PT accepted offer for prayer. Continued building of good repore. Follow-up: As needed or requested.
--- NOTE | 2021-04-26 19:24 | NUR ---
PATIENT IN BED HOWEVER DOWN LOW IN BED AND HER FEET ARE RESTING ON THE FOOTBOARD. SHE WAS REPOSITIONED IN BED WITH HER HELP AND RN HELP AND REPOSITIONED FOR COMFORT. SHE TELLS ME HER PAIN IS BETTER THAN EARLIER TODAY AND SHE IS READY TO SLEEP A LITTLE. SHE ASKS ABOUT WHEN SHE CAN HAVE HER NEXT PAIN PILL AND I LET HER KNOW THIS WILL BE IN AN HOUR. SHE ACCEPTS THIS ANSWER, CALL LIGHT AT BEDSIDE AND PATIENT COMFORTABLE
--- NOTE | 2021-04-27 03:25 | NUR ---
PATIENT AWAKE AND REQUESTING PAIN MEDICATION. SHE USES BEDPAN AND THE MA AND RN REPOSITION PATIENT, WARM BLANKETS AND PAIN MEDS. PT ALSO REQUESTED ICE CHIPS. ALL NEEDS MET AT THIS TIME. PATIENT IS WATCHING OLD MOVIES ON THE COMPUTER. SHE TELLS ME SHE IS COMFORTABLE CALL LIGHT WITHIN REACH, SIDE RAILS UP X 3
--- NOTE | 2021-04-27 04:40 | NUR ---
PATIENT C/O HEADACHE AND ASKS FOR SOMETHING FOR IT. STATES HEADACHE IS 9/10. TYLENOL 650MG IS GIVEN. I ASSISTED PATIENT WITH REPOSITIONING AND FLUFFING PILLOWS. CALL LIGHT WITHIN REACH
--- NOTE | 2021-04-27 11:11 | NUR ---
DR. POPE CAME TO SEE PATIENT. DRESSING CHANGES ONLY NEED TO BE Q3DAYS TO L FOOT. WILL UPDATE ORDER.
--- NOTE | 2021-04-27 16:49 | NUR ---
PT RESTING COMFORTABLY IN BED TODAY. WAS GIVEN FULL BED BATH WITH SHAMPOO. PT CALLED APPROPRIATELY WHEN NEEDING THE RESTROOM OR REQUESTING PAIN MEDICATION. DR. POPE CAME TO SEE PATIENT AND CHANGED ORDER OF DRESSING CHANGES TO Q3DAYS. WILL CONTINUE TO MONITOR PATIENT FOR CHANGES AND DISCOMFORT.
--- NOTE | 2021-04-27 19:00 | NUR ---
BEGINING OF SHIFT SUMMARY PT SITTING UP IN BED WITH COMPLAINTS OF ABDOMINAL PAIN D/T NO BOWEL MOVEMENT. PROVIDED PRN MILK OF MAG, SEE MAR. AT THIS TIME PT WANTS TO GIVE THE MEDICATION SOME TIME TO WORK BEFORE TRYING THE NEXT TREATMENT. PAIN MEDICATION PROVIDED PER OCT. PT USED BEDPAN. NO OTHER QUESTIONS OR CONCERNS AT THIS TIME. WILL CONTINUE TO MONITOR. CALL LIGHT WITHIN REACH.
--- NOTE | 2021-04-27 20:37 | NUR ---
pt comfortable and well cared for
--- NOTE | 2021-04-28 05:40 | NUR ---
PT REMAINED PLEASENT THROUGHTOUT THE NIGHT. PAIN CONTINUES IN THE LEFT FOOT, MEDICATED PER OCT. PT DID NOT HAVE A BOWEL MOVEMENT DURING SHIFT, COMPLAINING OF SOME ABDOMINAL PAIN, PT MEDICATED WITH PRN MED PER OCT. PT IS NO LONGER REQUIRING A BEER WITH DINNER, NO S/S OF WITHDRAWL. WILL CONTINUE TO MONITOR AND REPORT TO DAY SHIFT RN
--- NOTE | 2021-04-28 07:21 | NUR ---
PT CHANGE OF SHIFT REPORT TAKEN FROM NIGHT RN AT 0700. PT RESTING COMFORTABLY AND IS RESPONSIVE, APPEARS PLEASANT AND SLEEPY. NIGHT RN REPORTED NO BOWEL MOVEMENT OVER PM SHIFT WITH ADDITIONAL MILK OF MAG DURING PORTRAIT PHOTOGRAPHER.PMRN REPORTS CHANGE IN WOUND CARE FROM Q24HR TO Q3DAYS. PT WAS REPORTED TO HAVE ELEVATED ANXIETY THROUGHOUT PORTRAIT PHOTOGRAPHER. PT REPORTED ANXIETY DT ABD PAIN. END NOTE. ORSC.RDS
--- NOTE | 2021-04-28 18:59 | NUR ---
CHANGE OF SHIFT REPORT WAS GIVEN TO ONCOMING RN 0700. PT WATCHING [employer] AND RESTING COMFORTABLY IN BED TODAY. WAS GIVEN FULL BED BATH AND ROM STRETCHES.SISTER DROPPED OFF PT CLOTHING AND CHOCOLATES. PT CALLED APPROPRIATELY WHEN NEEDING THE RESTROOM OR REQUESTING PAIN MEDICATION. NO CHANGES TO PT STATUS THROUGHOUT SHIFT.END NOTE ORSC.RDS.
--- NOTE | 2021-04-28 21:15 | NUR ---
BEGINGING OF SHIFT SUMMARY PT IN BED WITH COMPLAINTS OF NECK AND BACK PAIN, PAIN MEDICATION PROVIDED, SEE MAR. PT CONTINUES WITH COMFORT CARE. WOUND DRESSING IN PLACE, DRY AND INTACT. DRESSING INTACT BUTTOCK. PT ABLE TO USE BED MASON AND CALL LIGHT APPROPRIATELY. WILL CONTINUE TO MONITOR AND PROVIDE COMFORT MEASURES.
--- NOTE | 2021-04-29 02:25 | NUR ---
COMFORT CARE ROUNDING PT HAVING REPORTING PAIN ALL OVER; MEDICATED PER MAR. WARM BLANKETS PROVIDED. WILL REASSESS PAIN INDICATED.
--- NOTE | 2021-04-29 03:12 | NUR ---
COMFORT CARE ROUNDING UPON PAIN SCALE REASSESSMENT PT CONTINUES TO C/O ALL OVER PAIN. WARM BLAKETS PROVIDED, PT REPOSITIONED. AT THIS TIME ANXIETY MEDICATION PROVIDED FOR RELAXING RELIEF. IF PAIN CONTINUES WILL CONSULT MAR FOR FURTHER MEDICATION.
--- NOTE | 2021-04-29 05:44 | NUR ---
END OF SHIFT SUMMARY PT REMAINED ALERT, ORIENTED AND PLEASENT THROUGHOUT SHIFT. PT C/O ALL OVER BODY PAIN, MEDICATED WITH PAIN AND ANXIETY MEDICATION PER MAR. PT USES CALL LIGHT APPORPRIATLY. UTLIZES BED MASON. PO FLUIDS WITHIN REACH, ICE CHIPS PROVIDED DURING SHIFT. WOUND DRESSING LEFT LOWER EXTREMITY, C/D/I. DRESSING ON TAIL BONE, C/D/I. NO BEERS REQUIRED DURING SHIFT. PT LIKES TO KEEP THINGS IN BED WITH HER, ENSURE NOTHING FALLS UNDERNEATH HER. PT ALSO HAS SOME OF HER PERSONAL BELONGINGS, HAS HER OWN SHIRT ON TODAY. PT CONTINUES TO WAIT FOR PLACEMENT MARY DECLINED. WILL REPORT TO DAY SHIFT RN.
--- NOTE | 2021-04-29 09:51 | NUR ---
WOUND CARE:0950 dressing CHANGE L LEG PER ORDERS Q3D. LEG WOUND APPEARED SLIGHTLY SMALLER THAN PRIOR DRESSING CHANGE. PT TOLLERATED DRESSING CHANGE WELL. END NOTE ORSC.RDS.
--- NOTE | 2021-04-29 12:22 | NUR ---
PT HAD BED CHANGE, ATTENDS CHANGE AND DRESSING CHANGE BY CAILIN AND RN. SHE TOLERATED IT WELL. PTS CLOTHES WERE CHANGED AND SHE EXPRESSED GRATITUDE FOR THE CLEAN CLOTHING. PT HOB WAS RAISED TO 30 DEGREES, BED LOWERED TO LOWEST SETTING.
--- NOTE | 2021-04-29 18:37 | NUR ---
CHANGE OF SHIFT REPORT WAS GIVEN TO ONCOMING RN 0700. PT WATCHING NETFLIX AND RESTING COMFORTABLY IN BED TODAY. DRESSINGS CHANGED. PT WAS DRESSING IN PERSONAL CLOTHING AND STATED THAT SHE FELT MORE HUMAN BECAUSE OF FINALLY BEING DRESSED IN HER OWN CLOTHING. PT ATE SEVERAL SNAKES AND WAS IN GOOD SPIRITS. PT CALLED APPROPRIATELY WHEN NEEDING THE RESTROOM OR REQUESTING PAIN MEDICATION. PT COMPLAINED OF HEADACHES 2X DURING SHIFT AND RECIEVED 650MG TYLENOL PO AND PAIN WAS RESOLVED. END NOTE ORSC.RDS. .
--- NOTE | 2021-04-29 19:51 | NUR ---
BEGINGING OF SHIFT REPORT PT RESTING COMFORTABLY IN BED WATCHING TV. PO FLUIDS AVAILABLE ON SIDE TABLE WITH IN REACH, CALL LIGHT WITHIN REACH. PT REPORTS HAVING PAIN IN THE LEFT FOOT, MEDICATION PROVIDED PER OCT. LOWER EXTREMITY DRESSINGS CHANGED ON DAY SHIFT PER DAY SHIFT RN. WILL CONTINUE TO MONITOR TAIL BONE DRESSING. PT STATES SHE WANTS TO TALK TO THE DOCTOR ABOUT GETTING OUT OF HERE. HER SISTER IS HELPING BUT PT STATES SHE IS OVERWHELMED. PT CONTINUES WIHOUT ALCOHOL. WILL CONTINE TO MONITOR AND PROVIDE COMFORT MEASURES.
--- NOTE | 2021-04-30 06:04 | NUR ---
END OF SHIFT SUMMARY PT REMAINED PLEASENT THROUGHOUT SHIFT. NO INCIDENTS TO REPORT. PT CONTINUES TO C/O ALL OVER BODY PAIN, MEDICATION PER MAR. PT DOES HAVE A WET SOUNDING COUGH. PT ENCOURAGED TO COUGH AND DEEP BREATH, MEDICATED PER MAR. PT STATES SHE WOULD EVENTUAL LIKE TO STAND AND USE A BEDSIDE COMMODE INSTEAD OF USING THE BED PAIN AND IT IS UNCOMFORTABLE. PT STATES SHE WOULD LIKE TO GET OUT OF HERE BUT UNDERSTANDS WE ARE AWAITING PLACEMENT. PT'S SISTER IS INVOLVED WITH CARE. PT IS FEELING BETTER IN HER OWN PERSONAL CLOTHES. PT SEEMS TO BE INCREASING PO FOODS AND LIQUIDS; ICE CHIPS, WATER AND ENSURE AVAILABLE AND WITHIN REACH. WILL REPORT TO DAY SHIFT RN
--- NOTE | 2021-04-30 07:46 | NUR ---
ASSUMED CARE FROM NETWORK STRATEGIST. PT RESTING IN BED WITH CALL LIGHT IN REACH. BED IN LOW POSITION WITH BED ALARM ON. PT REQUESTING PAIN MEDICATION AT 0810. THIS RN SPOKE WITH PT AND REMINDED HER THAT SHE RECEIVED A DOSE OF NORCO AT 0600 AND IT WAS TOO EARLY FOR ANOTHER DOSE. TYLENOL WAS OFFERED BY THIS RN, WHICH PT WANTED TO TAKE. PT WOULD LIKE TO GET OUT OF BED TODAY AND HER WET COUGH BE ADDRESSED. THIS RN WILL FOLLOW UP WITH DR. POPE.
--- NOTE | 2021-04-30 13:57 | NUR ---
SPOKE WITH DR. AGUIAR ABOUT PT CONSULT FOR PT. FOR NOW, NO NEW ORDERS FOR PT CONSULT. PT ALSO EXPRESSED DESIRE TO RETURN HOME WITH SISTER AND NIECES. DR. AGUIAR WAS INFORMED OF THIS. WILL CONTINUE TO MONITOR.
--- NOTE | 2021-04-30 18:11 | NUR ---
PT RESTING IN BED. PT CALLS APPROPRIATELY IF NEEDING BATHROOM. CALL LIGHT WITHIN REACH. PT TURNED AND REPOSITIONED WITH MINIMAL HELP. PT GIVEN PRN TESSALON FOR COUGH. PT ALSO GIVEN PRNS FOR PAIN TODAY. PT EXPRESSES UNDERSTANDING OF NOT BEING ABLE TO GO HOME TODAY, ALTHOUGH VISIBLY SADDENED BY THIS. WILL CONTINUE TO MONITOR AND REPORT TO ONCOMING INSIDE SALES ADVISOR RN.
--- NOTE | 2021-04-30 22:43 | NUR ---
PATIENT ON BEDPAN, URINATED 50ML DARK YELLOW URINE. CALL LIGHT WITHIN REACH.
--- NOTE | 2021-05-01 03:48 | NUR ---
PATIENT C/O BEING COLD AND HER LEGS ARE ITCHING. REPLACED BLANKETS WITH BLANKETS FROM THE WARMER. REMOVED A BLANKET FROM HER LEGS TO HELP WITH ITCHING. PATIENT ALSO C/O PAIN, MEDICATED PER ORDERS BUT PATIENT CONTINUES TO RATE PAIN AT 8/10. PATIENT VERY DROWSY. WILL REASSESS IN 15 MINUTES. CALL LIGHT WITHIN REACH.
--- NOTE | 2021-05-01 04:12 | NUR ---
PATIENT STATES THAT SHE IS HUNGRY,REQUESTS ROAST BEEF AND CHEESE SANDWICH WITH LOTS OF MAYONNAISE. CALL LIGHT WITHIN REACH.
--- NOTE | 2021-05-01 04:58 | NUR ---
PATIENT SLEPT OFF AND ON THROUGHOUT NIGHT. MEDICATED FOR PAIN PER DR.S MAHER, AWOKE APPROXIMATELY 0300 AND REQUESTED ROAST BEEF SANDWICH, PATIENT CONSUMED APPROXIMATELY HALF OF THE SANDWICH. RESTING IN BED WATCHING TV. VSS.
--- NOTE | 2021-05-01 05:14 | NUR ---
PATIENT C/O WANTING TO GO HOME AND LEGS ITCHING, UNABLE TO FALL BACK TO SLEEP AFTER EATING HER SANDWICH. MEDICATED WITH ATIVAN PER ORDERS. CALL LIGHT WITHIN REACH. WILL REASSES IN 15 MINUTES.
--- NOTE | 2021-05-01 05:37 | NUR ---
REASSESSED PATIENT AFTER GIVING ATIVAN, PATIENT SLEEPING. CALL LIGHT ISELA HUSSEIN.
--- NOTE | 2021-05-01 08:54 | NUR ---
PT AWAKE, ALERT, PT WATCHING IPAD AT THIS TIME. PT EATING TOAST WITH PB THIS AM. PT C/O PAIN 10/10 THROUGHOUT BODY. PT MEDICATED WITH NORCO. PT STATES HER PAIN GOAL IS 9/10. PT COMMUNICATES CLEARLY OF HER NEEDS. PT RESTING AT THIS TIME WATCHING IPAD. CALL LIGHT WITHIN REACH. RE-POSITION EVERY 2 HOURS. WILL CONTINUE TO MONITOR.
--- NOTE | 2021-05-01 11:35 | NUR ---
PT RESTING, WATCHING IPAD. EATING SNACKS, ICE CREAM. PT REPOSITIONED
--- NOTE | 2021-05-01 13:01 | NUR ---
PT RESTING WATCHING A MOVIE. PT APPLYING LOTION ON LEGS. PT USED BEDPAD TO URINATE ABOUT 50CC YELLOW URINE.
--- NOTE | 2021-05-01 13:38 | NUR ---
SPIRITUAL CARE IN ROOM AT THIS TIME TO TALK WITH PATIENT. CALL LIGHT WITHIN REACH.
--- NOTE | 2021-05-01 13:39 | NUR ---
SPIRITUAL CARE IN ROOM AT THIS TIME TO TALK WITH PATIENT. CALL LIGHT WITHIN REACH
--- NOTE | 2021-05-01 15:02 | NUR ---
Spiritual care visit conducted. Because therapeutic alliance is already established, Patient talks at length about personal struggles, her troubled past and her fears about the future. We also discuss God, sabianist, and what is meaningful in life for the patient. I listen empathically and provide companionship, theological discussion and prayer. Patient responds well and shows signs of being encouraged and having an increased hope. I will continue to remain available to patient and family.
--- NOTE | 2021-05-01 15:56 | NUR ---
ALUMINUM SHINGLE ROOFER/FINISHER MACHINE REFERRAL - ADMIT: 03/07/21 DISCHARGE: DX: CC: KBISHOP SUMMARY: 05/01/21- PER HOSPITAL NOTE, BRENDA AT [facility] IN [place] HAS ACCEPTED PT BUT WILL NEED FACE TO FACE AND HAS REQUESTED HOSPICE WITH [facility]. UPDATES HAVE BEEN FAXED TO FACILITY. WAITING FOR APPROVAL FROM [facility] AND MEDICAID. JANAE ANDERSON IS GOING FOR GUARDIANSHIP OF PT. AND [facility] IS TO HAVE IT BY THE END OF THE WEEK. HOSPITAL IS WILLING TO BE THE PT PART OF HER COST LONG IT IS NOT GOING TO AFFECT HER ELIGIBILITY WITH MEDICAID. -ROS 04/30/21- [facility] IN [place] HAS ACCEPTED THE PT. KATERINA WITH [facility] IS HELPING WITH PLACEMENT AND -GETTING A GUARDIAN FOR THE PT. PT WILL NEED FACE TO FACE AND IDENTIFIED PAYER SOURCE. WILL BE UPDATED SHE KNOWS MORE. -ROS
--- NOTE | 2021-05-01 16:07 | NUR ---
PT SLEEPING, VOIDED AT AROUND 1545. PT RESTING AT THIS TIME WITH CALL LIGHT WITHIN REACH.
--- NOTE | 2021-05-01 17:40 | NUR ---
PT RESTING, WATCHING IPAD. CALL LIGHT WITHING REACH.
--- NOTE | 2021-05-01 17:47 | NUR ---
PT FINISHED DINNER, ATE ABOUT 10% OF HER MEAL. PT USES CALL LIGHT APPROPRIATELY. PT WATCHES MOVIES ON HER IPAD. PT REPOSITIONED EVERY 2 HOURS DURING THE DAY. WILL CONTINUE TO MONITOR.
--- NOTE | 2021-05-01 19:12 | NUR ---
pt resting no complaints.
--- NOTE | 2021-05-01 19:50 | NUR ---
PATIENT IN A VERY GOOD MOOD TONIGHT. LAUGHING AND JOKING WITH STAFF, HAD A LARGE BM. CALL LIGHT WITHIN REACH.
--- NOTE | 2021-05-01 20:26 | NUR ---
PATIENT CALLED AND NEEDED BED MASON. PATIENT HAD BM AND URINATED. CALL LIGHT WITHIN REACH.
--- NOTE | 2021-05-02 02:41 | NUR ---
PATIENT REQUESTING PAIN MEDS. RATES PAIN 9/10. MEDICATED PER ORDERS, CALL LIGHT WITHIN REACH.
--- NOTE | 2021-05-02 04:58 | NUR ---
PATIENT SLEPT THROUGHT MOST OF NIGHT, USED CALL LIGHT APPROPRIATELY FOR BEDPAN. MEDICATED WITH NORCO AT 0245.
--- NOTE | 2021-05-02 07:52 | NUR ---
0700 CHANGE OF SHIFT REPORT FROM PMRN ISA. PT REQUESTED SNACK AND GOT PUDDING. AT BREAKFAST PT WAS SITTING UPRIGHT WITH SEVERAL BLANKS ON BED, WATCHING TABLET. PT REQUESTED MORE INFORMATION ABOUT [facility] IN [place] WHERE SHE MAY FIND PLACEMENT PENDING FINALIZED DETAILS. END NOTE. ORSC.RDS.
--- NOTE | 2021-05-02 12:06 | NUR ---
1045 L LEG WOUND DRESSING CHANGE AND WOUND CARE WITH ASSISTANCE FROM RN. WOUNDS APPEAR TO BE HEALING, NONODOROUS W ACCEPTABLE MOISTURE LEVEL. END NOTE ORSC.RDS.
--- NOTE | 2021-05-02 19:32 | NUR ---
END OF SHIFT REPORT GIVEN TO PMRN. PT RESTING COMFORTABLY IN LOCKED BED W HOB ELEVATED AND CALL LIGHT IN REACH. ROOM FREE OF CLUTTER AND PT STATED IN GOOD SPIRITS AND FREE OF REQUESTS. ORSC.RDS. END NOTE.
--- NOTE | 2021-05-03 01:18 | NUR ---
PATIENT SLEEPING SOUNDLY WHEN I ENTERED ROOM. REPOSITIONED HEAD. WILL CONTINUE TO MONITOR.
--- NOTE | 2021-05-03 03:29 | NUR ---
PATIENT SLEEPING IN ROOM. CALL LIGHT IN REACH. REPOSITIONED HER HEAD. WILL CONTINUE MONITORING.
--- NOTE | 2021-05-03 06:40 | NUR ---
END OF SHIFT SUMMARY PATIENT SLEPT WELL THROUGHOUT THE NIGHT. PATIENT IS DNR. REQUESTED PAIN MEDICATION DURING THIS SHIFT AND WAS GIVEN NORCO AND ATIVAN. THIS HELPED ALLEVIATE HER SYMPTOMS AND SHE FELL ASLEEP SHORTLY AFTER. I REPOSITIONED HER THROUGHOUT THE NIGHT NEEDED. THIS MORNING SHE REQUESTED WATER AND VOIDED. REQUESTED PAIN MEDICATION, STATING THAT HER BUTTOCKS, LEFT LEG, AND BACK HURTS. I CHECKED HER SKIN INTEGRITY AND THERE ARE NO NEW ISSUES TO REPORT. SHE WAS LEFT WITH CALL BUTTON IN PLACE, IN A PLEASANT MOOD, WATCHING A MOVIE.
--- NOTE | 2021-05-03 10:52 | NUR ---
REQUESTED PHOTO TAKEN OF L LEG WOUND AT DRESSING CHANGE SUNDAY 05/06. END NOTE ORSC.RDS
--- NOTE | 2021-05-03 11:42 | NUR ---
END OF HALF SHIFT REPORT: FAHAD BUENO TO BE SENT HOME DT LOW CENSUS, SEVERAL OTHER PT DCS. FOR THIS SPECIFIC PT REPORT GIVEN TO XIMENA ALFRED AND TO HAND OFF PT CARE ONCE SHE RETURNS FROM HER LUNCH BREAK. PT RESTING COMFORTABLY, HOB ELEVATED, LOCKED WHEELS AND ROOM CLEAR OF CLUTTER. PT APPEARS PLEASANT AND IN GOOD SPIRITS. END NOTE. ORSC.RDS
--- NOTE | 2021-05-03 16:25 | NUR ---
Introduction: Follow up with pt from previous visit. Assessment: 65 y/o f pt presented laying in bed as she has for each visit. Pt began to share her journey again and spoke about her life and family. Pt spoke about missing the outside. She spoke about food and her care while in the hospital. Pt spoke particularly about her beloved sisiter. Pt offered a picture she clara of the chaplains that visit her. The picture were of 2 people in green clothes with smiles on their faces. The pt has no windows in her room but clara a sun, blue clouds, and blooming kang in the picture. Pt went on to talk about her future and what that may look like. Intervention: Cultivated a relationship of care and support. Explored emotional and relational resources, invited pt to share a life review, listened with empathy and compassion. Outcome: Pt shared she feels comfortable talking to the Chaplains. Pt shared she likes to have visits in her room but knows the staff are busy. Pt expressed her gratitude for Production Sorter visit. Follow up: Follow up for emotional and spiritual support as needed or requested.
--- NOTE | 2021-05-03 20:54 | NUR ---
ATTENDS CHANGE PT PLACED ON BED MASON. PAD ON LOWER BACK CHANGED OUT AND ALLEVYN PAD APPLIED TO LOWER BACK TO PROTECT FROM PRESSURE. CLEAN ATTENDS PLACED ON PATIENT. PT WAS ABLE TO VOID X1 INTO BEDPAN. PT REPOSITIONED IN BED. SNACKS AND BEVERAGES AT BEDSIDE. CALL LIGHT IN REACH. BED IS IN THE LOWEST, LOCKED POSITION.
--- NOTE | 2021-05-04 04:34 | NUR ---
SHIFT SUMMARY PT SLEPT ON AND OFF THROUGHOUT THE NIGHT. PT WOKE SEVERAL TIMES TO USE THE BEDPAN. PT COMPLAINED OF PAIN "ALL OVER." RN TREATED WITH PO PAIN MEDICATION; PT FELL ASLEEP AFTER DOSES OF PAIN MEDICATION. RN AND MA'S REPOSITIONED AND PROVIDED PERSONAL CARE Q2 HOURS. PT OCCASIONALLY WOULD AWAKEN AND USE THE TABLET TO WATCH TV. PT REQUESTED AND ATE 2 PUDDING CUPS AND DRANK WATER/ICE CHIPS. CALL LIGHT MAINTAINED IN REACH THROUGHOUT THE NIGHT. BED IS IN THE LOWEST, LOCKED POSITION.
--- NOTE | 2021-05-04 07:39 | NUR ---
PT RESTING ON HER BED WATCHING TV/IPAD. PT DENIES ANY PAIN AT THIS TIME. CALL LIGHT WITHIN REACH. WILL CONTINUE TO MONITOR.
--- NOTE | 2021-05-04 10:03 | NUR ---
PT RESTING, CALL LIGHT WITHIN REACH. WILL CONTINUE TO MONITOR.
--- NOTE | 2021-05-04 12:08 | NUR ---
PT WOUND CHANGED WITH TWO RNS. PT WAS PREMEDICATED PRIOR TO WOUND CHANGE. DR. RUSH IN ROOM TO SEE PT AND VERBALLY ORDERED PT'S DIET TO BE CHANGED TO REGULAR DIET INSTEAD OF SOFT.
--- NOTE | 2021-05-04 15:04 | NUR ---
PT NOW RESTING. VOIDED USING BEDPAN. PT WAS VISITED BY MAILE LEIJA TODAY AT AROUND 1455 WITH [employer] CASE MANAGEMENT IN THE ROOM. MAILE HANDED PT LEGAL DOCUMENTS. PT NOW WATCHING TV/IPAD. CALL LIGHT WITHIN REACH. WILL CONTINUE TO MONITOR.
--- NOTE | 2021-05-04 15:15 | NUR ---
PT RESTING IN BED. VOIDED USING BED MASON. MAILE DELEON VISITED PT TO HAND HER LEGAL DOCUMENTS AND [employer]ANK[employer] CASE MANAGEMENT IN THE ROOM WITH MAILE. CALL LIGHT WITHIN REACH.
--- NOTE | 2021-05-04 16:08 | NUR ---
Pt. delivered court documents this afternoon regarding POA. I accompanied gentleman delivering the documents to room and watched him hand them to her. Jazzmine accepted them and thanked him. She then asked what they were. I explained to Jazzmine the reason for the documents and what DONELL/Veronica are trying to accomplish by assisting her with POA. We talked about facility placement and her getting to go to a place that would feel more like home. She was confused as she believes that her sister has POA, but happily agreed to the plan of care and had no further questions.
--- NOTE | 2021-05-04 17:30 | NUR ---
PT RESTING, EATING DINNER. PT AWAKE, DENIES PAIN AT THIS TIME. CALL LIGHT WITHIN REACH. WILL CONTINUE TO MONITOR.
--- NOTE | 2021-05-04 18:36 | NUR ---
PT DRESSING CHANGED TODAY ON HER COCCYX, LEFT CALF AND LEFT FOOT. PT HAD A VISITOR FROM [employer] BOOK PUBLISH[employer] TODAY. PT HAD A BEDBATH TODAY AND HER SISTER BROUGHT IN SOME CLEAN CLOTHES FOR PATIENT TODAY. PT USES CALL LIGHT APPROPRIATELY TODAY. TURNED EVERY 2 HOURS. PT DIET WAS CHANGED TO REGULAR DIET TODAY PER DR. RUSH ORDER. PT TOLERATED HER MEALS TODAY. VS WNL.
--- NOTE | 2021-05-05 02:51 | NUR ---
PT SLEEPING PT CONTINUES TO REST WITH EYES CLOSED. CALL LIGHT IN REACH. BED IS IN THE LOWEST, LOCKED POSITION. NO NEEDS AT THIS TIME.
--- NOTE | 2021-05-05 05:43 | NUR ---
SHIFT SUMMARY PT SLEPT WELL THROUGHOUT THE NIGHT. PT REPOSITIONED EVERY 2 HOURS BY RN AND MA. PT USED THE BEDPAN SEVERAL TIMES TO VOID THROUGHOUT THE NIGHT. PT COMPLAINED OF PAIN, RN TREATED WITH PO PRN PAIN MEDICATION ORDERED. PT USED TABLET TO WATCH TV. SHE TOLERATED PO FLUIDS AND SNACKS WELL. NO NEEDS AT THIS TIME. CALL LIGHT REMAINED IN REACH ALL NIGHT.
--- NOTE | 2021-05-05 10:29 | NUR ---
PT REQUESTS SUPPOSITORY. PT STATES THAT SHE HAD SMALL BOWEL MOVEMENT 05/04/21. CANNOT RECALL WHEN SHE HAD LAST LARGE BM. PT HAS NOT TRIED ANYTHING ELSE AT THIS TIME. PT IS AMENABLE TO MIRALAX.
--- NOTE | 2021-05-05 12:50 | NUR ---
PT COMPLAINS OF CONSTIPATION. PT STATES THAT SHE HAD A SMALL BM 05/04/21. PT WAS GIVEN MIRALAX THIS AM. PT IS REQUESTING SUPPOSITORY. PER V/O DR VICTOR MANUEL FRIEDMAN TO GIVE DULCOLAX SUPPOSITORY NOW.
--- NOTE | 2021-05-05 23:58 | NUR ---
SLEEPING AT THIS TIME, CALL LIGHT WITHIN REACH
--- NOTE | 2021-05-06 02:36 | NUR ---
PATIENT SLEEPING AND APPEARS COMFORTABLE. CALL LIGHT WITHIN REACH. BED AT LOWEST POSITION AND SIDE RAILS UP X 3
--- NOTE | 2021-05-06 03:30 | NUR ---
PATIENT SLEEPING AND COMFORTABLE, CALL LIGHT WITHIN REACH
--- NOTE | 2021-05-06 10:57 | NUR ---
PATIENT RESTING IN BED WATCHING NET[employer]IX. ALERT, CONVERSIVE, COOPERATIVE. REQUESTS BEDPAN OFTEN TO URINATE. NO S/S DISTRESS. UPPER RAILS UP AND CALL LIGHT WITHIN REACH AT ALL TIMES.
--- NOTE | 2021-05-06 12:35 | NUR ---
1215 PATIENT BACK FROM DIALYSIS VIA BED. ALERT AND ORIENTED AND STATES THAT HE FEELS WELL. PATIENT APPEARS MORE AWAKE THAN THIS AM. BLOOD SUGAR TAKEN WHEN PATIENT RETURNED FROM DIALYSIS AND BEFORE HE STARTED TO EAT HIS LUNCH. YSZ=[id number] INSULIN NEEDED. RIFAMPIN GIVEN AT THIS TIME WELL. MEDICATION WAS NOT GIVEN PREVIOUSLY BECAUSE HE WENT TO DIALYSIS BEFOE THE MEDICATION ARRIVED FROM PHARMACY. UPPER RAILS UP AND CALL LIGHT WITHIN REACH.
--- NOTE | 2021-05-06 13:06 | NUR ---
DRESSING CHANGED TO LEFT LOWER LEG AND TOES. PATIENT PRE MEDICATED WITH PAIN MEDICATION. WOUND AREA PINK AND MOIST WITH SCANT DRAINAGE ON THE DRESSING. NO S/S OF INFECTION PRESENT. LEG DRESSED WITH XEROFORM, EXUDRY, KERLIX AND LOOSELY WRAPPED PRERNA. TOES DRESSED WITH XEROFORM, 4X4'S AND COBAN.
--- NOTE | 2021-05-06 17:56 | NUR ---
PT WITH NO S/S OF DISTRESS T/O SHIFT. MEDICATED FOR PAIN X2 (GENERALIZED, LEFT LEG AND TOES). LEG DRESSING REAMINS D/I. BUTTOCKS DRESSINGS CLEAN, DRY AND INTACT. CALL LIGHT WITHIN REACH AND UPPER RAILS UP.
--- NOTE | 2021-05-06 23:39 | NUR ---
SLEEPING, APPEARS COMFORTABLE, CALL LIGHT WITHIN REACH, BED IN LOWEST POSITION RAILS UP X 3
--- NOTE | 2021-05-07 01:17 | NUR ---
SLEEPING, CALL LIGHT WITHIN REACH
--- NOTE | 2021-05-07 06:14 | NUR ---
PATIENT SLEPT MOST OF THE NIGHT. STABLE AND VERY FEW NEEDS AT THIS TIME. SHE HAS CONTINUED PAIN WHICH WAS TREATED PER ORDERS. COMFORT CARE AND REPOSITIONING PER PROTOCOLS
--- NOTE | 2021-05-07 07:53 | NUR ---
AWAKE AND ALERT EATING BREAKFAST IN BED. LCTA, BT+, HRR, SKIN WARM AND DRY. DDI TO LLE. PPP RIGHT LEG, LEFT FOOT WRAPPED. LEGS ELEVATED ON PILLOW. NO C/O OR S/S DISTRESS. CALL LIGHT WITHIN REACH AND UPPER RAILS UP.
--- NOTE | 2021-05-08 00:44 | NUR ---
1900-RECIEVED REPORT FROM JEFE BUENO, PT IN BED, A+OX3, PT MEDICATED FOR PAIN 2100-PT GIVEN HS MEDS 0000-PT MEDICATED FOR ANXIETY AND HEADACHE PAIN 0100-PT RESTING QUIETLY IN BED
--- NOTE | 2021-05-08 04:50 | NUR ---
PT RESTING QUIETLY IN BED, DENIES PAIN, N/V, SOB AT THIS TIME, VSS, NO ACUTE CHANGES
--- NOTE | 2021-05-08 06:28 | NUR ---
PT RESTING QUIETLY IN BED, VSS, NO ACUTE CHANGES THROUGH OUT SHIFT
--- NOTE | 2021-05-08 06:29 | NUR ---
WILL REPORT TO AM NURSE AND TRANSFER CARE
--- NOTE | 2021-05-08 07:42 | NUR ---
AT FIRST ASSESSMENT PT DID NOT HAVE HEAT PAD UNDER HER, IT WAS NOT TURNED ON AND SHE COMPLAINED OF BEING EXTREMELY COLD. HEAT PAD WAS TURNED ON AND PLACED BACK UNDER HER. PT STATED STATISFACTION WITH ACTION. PT COMPLAINED OF 9/10 PAIN AND WAS ADMINISTERED PRN PN MEDICATION AT 0740. ORSC.RDS
--- NOTE | 2021-05-08 10:48 | NUR ---
Late entry copied from [facility] EMR 05/05/21 Update 05/05/21 Late Entry: Pt. noted to be a bit more depressed than on previous days this week. When we spoke yesterday, she was ready to go home with her sister. We talked briefly about working towards her leaving the hospital soon. She seemed happy about the idea of leaving. Laura with [facility] care management is assigned to pt. and will continue to work towards placement.
--- NOTE | 2021-05-08 12:57 | NUR ---
CONSULT W REGARDING QD BEER W LUNCH TO BE REINSTATED ORDER MIDMORNING. END NOTE. ORSC.RDS
--- NOTE | 2021-05-08 15:28 | NUR ---
Patient tells me about the continuing story of the attempts to find placement for her. She shares many childhood stories of cucumber sailboats, icicle sword fights and [place] decorations. She says that she had drawn a picture of me because she was thinking of me. She gave me her drawing. She explains that she draws pictures to take her mind off the being stuck in the hospital with no end in site. We talk about healthy distractions, about the things she can't control and the perspectives, hope and attitudes she can control. I provide therapeutic listening, companionship and prayer. Patient responds well and shows signs of an elevated mood. She then takes ahold of my hand and thanks me for the time and care. I will continue to remain available to patient and family.
--- NOTE | 2021-05-08 18:12 | NUR ---
PT WAS REPOSITIONED Q2 HRS CONT. TODAY. PT SPENT MOST TIME WATCHING IPAD AND DRAWING IN NOTEBOOK. ROM,LOTION TO LOWER EXTREMITIES, CHANGE OF CLOTHS, BEDDING, TOILETED VIA BEDPAN X8 TODAY WITH SIGNIFICANT URINARY OUTPUT-HYDRATED SIGNIFICANT TIME WAS SPENT TALKING WITH PT ABOUT HER HAPPY MEMORIES AND THERAPIES IMPLIMENTED:BACKRUBS, SNACKS: ICECREAM X3 TODAY. PT REQUIRED PO NORCO AROUND 0700 AND AROUND 1600 TODAY. ROOM WAS REORGANIZED, AND CLEANED. PT STATED THAT HER SISTER WAS REVIEWING PAPERWORK TODAY CONCERNING HER FUTURE PLACEMENT IN RETIREMENT HOUSING MOVING FORWARD. 1BEER A DAY WAS REIMPLIMENTED COMFORT CARE MEASURE PER DR. GAY. END NOTE ORSC.COURTNEY.
--- NOTE | 2021-05-08 22:11 | NUR ---
PT PREPARING FOR BED PT STATED SHE WAS FEELING ANXIOUS AND COULD NOT GET COMFORTABLE. RN TREATED WITH ANTI-ANXIETY AND PAIN MEDICATION PER ORDERS (SEE EMAR). RN OFFERRED TO ASSIST PT WITH ADL'S R/T BEDTIME; TEETH BRUSHING, HAIR BRUSHING, WARM WASH CLOTH. PT DENIED ALL ASSISTANCE WITH ADL'S AT THIS TIME AND REQUESTED TO DO HER PERSONAL CARE IN THE MORNING. RN PROVIDED WARM PACK TO RIGHT SHOULDER AND WARM BLANKETS TO BED AND ASSISTED PT TO TURN TOWARDS HER RIGHT SIDE. PT HAD CALL LIGHT IN REACH. BEVERAGES AND SNACKS AT BEDSIDE. LIGHTS DIMMED PER PT'S REQUEST.
--- NOTE | 2021-05-09 02:51 | NUR ---
NURSE NIGHT ROUNDS PT RESTING COMFORTABLLY WITH EYES CLOSED; APPEARS TO BE SLEEPING. PT IS PROPPED ON HER LEFT SIDE SLIGHTLY. CALL LIGHT IN REACH. BED IS IN THE LOWEST, LOCKED POSITION.
--- NOTE | 2021-05-09 05:21 | NUR ---
SHIFT SUMMARY PT SLEPT OFF AND ON THROUGHOUT THE NIGHT. PT COMPLAINED OF PAIN WHICH WAS TREATED WITH PO PRN PAIN MEDICATIONS, REPOSITIONING, AND WARM PACKS. NO ACUTE CHANGES DURING THIS SHIFT. PT IS RESTING NOW WITH EYES CLOSED. PT ADJUSTED Q2 HOURS AND USED THE BEDPAN SEVERAL TIMES. CALL LIGHT IN REACH. BED IS IN THE LOWEST, LOCKED POSITION.
--- NOTE | 2021-05-09 09:56 | NUR ---
PT UP FOR SHOWER WITH ASSIST OF CAREGIVERS. LOOKED OVER SKIN WHILE SHE WAS IN SHOWER. EXTREME DRY SKIN R LEG, WHICH IS NOT NEW. WILL REMOVE DSSG TO LEFT HIP/BUTTOCKS. LEFT LEG WAS COVERED WITH BAG AND SECURED IN PLACE. PT WAS COVERED WITH WARM BLANKET AFTER SHOWER. PT VOICED FRUSTRATION WITH NO PLACE TO GO. WANTS TO JUST GO HOME.
--- NOTE | 2021-05-09 11:17 | NUR ---
LOTION APPLIED TO R LOWER LEG. PT HAD A SHOWER. EXAMINED SKIN. WILL DO DSSG CHANGE WHEN DR. MALIN IS AVAILABLE PER HIS REQUEST.
--- NOTE | 2021-05-09 11:58 | NUR ---
Introduction: RN asked if I would visit pt because she was having a bad day. Assessment: 65 y/o female presented laying her bed. Her hair was wet and pt was mad spouting a few bad words and claiming staff lie to her. Pt expressed,"I just want to get out of here and go home." Pt shared how she was cold and asked where her clothes were. Upon offering her clothes pt pulled out several pieces of clothes and began to pull her hospital gown down. I stepped out and RN came in room to help her and change her diaper and put the pants she wanted on her legs. After all that was completed, I went back into room. With some prompting Pt began to talk about her past and moved right into childhood memories. Pt also shared, "Today makes 2 months I'm at this place" :( Intervention: Cultivated a relationship of care and support. Explored emotional, relational, and spiritual resources. Provided empathic listening, and offered words of comfort and hope. Helped provide comfort by brushing pt's wet freshly washed hair, retrieved pt's clothing for her to chose what she wanted to put on instead of her hospital gown. Revisited conversation familiy history and the loss of her beloved sister. Advocated on behalf of the staff to the pt about her care and spoke about her time in the hospital not being forever. Spoke to pt about taking time to take a breath when she feels overwhelmed and feels like she has no control. Provided prayer according to pt ana tradition. Outcome: Pt began to calm as conversation turned to talk about life, her sisiter, the hope of a different future other than being in a hospital. Pt smiled and at moments in conversation laughed. Pt visually seemed at peace and relaxed. Follow up: Follow up for emotional and spiritual support as needed or requested.
--- NOTE | 2021-05-09 15:23 | NUR ---
05/09/21- care management has been working to try to find placement for pt either [facility] or at [facility]. Found out today that [facility] does not feel they are able to provide the level of care the pt needs. Now waiting to hear from facility [facility] and [facility] caregiver assistance to help pay for care. -bernarda
--- NOTE | 2021-05-10 01:40 | NUR ---
PATIENT AWAKE AND C/O ALL OVER PAIN, RATES AT 10/10. PATIENT GIVEN TYLENOL PER ORDERS. GIVEN IPAD TO WATCH. CALL LIGHT WITHIN REACH.
--- NOTE | 2021-05-10 03:20 | NUR ---
PATIENT CONTINUES TO C/O ALL OVER PAIN, RATES AT 10/10. MEDICATED PER ORDERS WITH MORPHINE. CALL LIGHT WITHIN REACH.
--- NOTE | 2021-05-10 03:42 | NUR ---
PATIENT STILL C/O PAIN ON REASSESSMENT. RATES PAIN AT 9/10. CALL LIGHT WITHIN REACH.
--- NOTE | 2021-05-10 05:03 | NUR ---
PATIENT HAS SLEPT VERY LITTLE DURING SHIFT, MULTIPLE C/O ALL OVER BODY PAIN WHICH SHE RATES AT 10/10. PATIENT WAS MEDICATED WITH NORCO,TYLENOL, AND MORPHINE PER ORDERS WITH VERY LITTLE RELIEF FROM PAIN. STAFF HAVE ATTEMPTED TO READJUST PT WHICH ONLY CAUSES MORE PAIN. CALL LIGHT HAS BEEN WITHIN REACH ALL SHIFT.
--- NOTE | 2021-05-10 07:40 | NUR ---
PT COMMUNICATES CLEARLY, PT MOVES ABOUT IN BED WITH LITTLE ASSISTANCE. DRESSING CHANGE ON HER COCCYX TODAY 05/10/21 BECAUSE IT'S WET FROM USING BEDPAN. BLANKETS CHANGED THIS MORNING, AND PT WAS REPOSITIONED WITH PILLOWS PER PT COMFORT. CALL LIGHT WITHIN REACH. WILL CONTINUE TO MONITOR.
--- NOTE | 2021-05-10 12:39 | NUR ---
PT RESTING AT THIS TIME. EATING LUNCH. PT HAS HER 1 BEER/DAY. PT CALL LIGHT WITHIN REACH.
--- NOTE | 2021-05-10 13:22 | NUR ---
PT USED BEDPAN WITH VERY SMALL BM. PT IS STARTED ON SCHEDULED MIRALAX PER DR. MAHER. PT C/O PAIN 10/10 ALL OVER BODY, PT MEDICATED WITH ORAL PAIN MEDICATION. CALL LIGHT WITHIN REACH. WILL CONTINUE TO MONITOR.
--- NOTE | 2021-05-10 14:26 | NUR ---
PT RESTING AT THIS TIME. CALL LIGHT WITHIN REACH. WILL CONTINUE TO MONITOR.
--- NOTE | 2021-05-10 16:39 | NUR ---
PT RESTING AT THIS TIME. PT HAS BEEN USING THE BEDPAN NEEDED. PT MOVES ABOUT IN BED ON HER OWN WELL. PT USES THE CALL LIGHT APPROPRIATELY. WILL CONTINUE TO MONITOR.
--- NOTE | 2021-05-10 18:55 | NUR ---
PT AWAKE FOR MOST OF THE DAY TODAY. PT ATE WELL WITH HER MEALS. PT WAS MEDICATED FOR PAIN TODAY. PT C/O DIFFICULTY WITH BOWEL MOVEMENTS. AWARE AND CHANGED HER MIRALAX TO SCHEDULE MED INSTEAD OF PRN. PT ON HER CALL LIGHT THROUGH OUT THE DAY AND WANTING TO USE BEDPAN. PT DENIES ANY PAIN WITH URINATING. CALL LIGHT WITHIN REACH. REPORT GIVEN TO KENYATTA SCHMITZ.
--- NOTE | 2021-05-11 05:27 | NUR ---
PT USED CALL LIGHT MULTIPLE TIMES DURING SHIFT TO USE BEDPAN. PT HAD MUTLIPLE ATTEMPTS TO HAVE A BM BUT ONLY WAS ABLE TO PASS SMALL AMOUNTS OF STOOL. OTHERWISE SHE HAS RESTED QUIETLY THROUGHOUT SHIFT. CALL LIGHT HAS BEEN WITHIN REACH ENTIRE SHIFT.
--- NOTE | 2021-05-11 10:43 | NUR ---
ASSUMED CARE FOR PT AT 0700. PT RESTING IN BED COMFORTABLY. PT CALLS APPROPRIATLEY FOR NEEDS. PLAN TO GET UP OUT OF BED TODAY, PER DR. DONIS REQUEST. AWAITING PLACEMENT FOR PT. WILL CONTINUE TO MONITOR FOR CHANGES.
--- NOTE | 2021-05-11 17:58 | NUR ---
PT RESTING IN BED COMFORTABLY NOW. PT WAS UP TO CHAIR FOR LUNCH TODAY AND SAT IN FRONT OF A WINDOW. PT WAS MEDICATED FOR BACK PAIN TODAY. PT TOLERATING MIRALAX TID. PT HAD A FEW SMALL BOWEL MOVEMENTS. PT CALLS APPROPRIATELY FOR NEEDS. WILL CONTINUE TO MONITOR AND GIVE REPORT TO TANK CLEANER NURSE.
--- NOTE | 2021-05-11 22:06 | NUR ---
TURN, LINEN CHANGE
--- NOTE | 2021-05-11 22:35 | NUR ---
PT. IS ALERT AND ORIENTED. VSS. VOID AND SMALL SOFT BM PER BEDPAN. DENIES PAIN OR DISCOMFORT DRESSINGS INTACT. SNACK AND DRINK PROVIDED.
--- NOTE | 2021-05-12 02:34 | NUR ---
PT. CO GENERALIZED PAIN FLACC 7/10. NORCO GIVEN PO. NO OTHER PROBLEMS OR CONCERNS PER PT.
--- NOTE | 2021-05-12 04:47 | NUR ---
ROXANOL 5MG GIVEN FOR CO GENERALIZED PAIN 03/10
--- NOTE | 2021-05-12 06:28 | NUR ---
PT CO GENERALIZED BODY AND SHOULDER PAIN TWICE IN THE NIGHT AND RECIEVED 1 NORCO AT 0240 AND 5MG ROXANOL AT 0430 AND HAD RELIEF. HAD SEVERAL SMALL BMS AND VOIDED SEVERAL TIMES IN BEDPAN. SLEPT FOR 4-5 HOURS THROUGH THE NIGHT AND WATCHED VIDEOS FOR THE REST OF THE NIGHT. DRESSING TO LEFT HIP BECAME SOILED AND IT WAS REMOVED. THE SKIN BELOW WAS INTACT AND NO REDNESS OR PINK. PT. DID NOT LIKE HAVING DRESSING REMOVED EVEN THOUGH ADHESIVE REMOVAL WAS USED AND DRESSING CAME OFF EASILY. REQUESTED THAT NEW DRESSING NOT BE APPLIED TO HIP. ENCOURAGED PT. TO MOVE SIDE TO SIDE FREQUENTLY TO PREVENT ANY REDNESS OR BREAKDOWN. SHE STATES UNDERSTANDS. DRESSING LEFT FOOT/LEG DRY AND INTACT. DR. MALIN WOULD LIKE TO BE PRESENT WHEN DRESSING CHANGED TODAY.
--- NOTE | 2021-05-12 10:22 | NUR ---
SHIFT ASSESSMENT: NIDA IS RESTING COMFORTABLY IN BED. SHE APPEARS TO BE A LITTLE DOWN/ FRUSTRATED TODAY BUT IS POLITE & APPRECIATIVE OF HER CARE. VSS. NOTHING ACUTE TO NOTE, SHE IS STILL JUST WAITING FOR PLACEMENT. CALL LIGHT IS IN REACH. BED IN LOWEST LOCKED POSITION. WILL CONTINUE TO MONITOR.
--- NOTE | 2021-05-12 14:45 | NUR ---
DRESSING CHANGE: CHANGED DRESSING. PHOTOS TAKEN & SHOWN TO DR. MALIN. NEW DRESSING IS XEROFORM, EXUDRY, 4X4 ON TOES, CHRISTOPHER, PRERNA. DRESSING CHANGE PAINFUL FOR PT BUT PT TOW. PER DR MALIN, CHANGE DRESSING EVERY 4 DAYS NOW.
--- NOTE | 2021-05-12 17:50 | NUR ---
SHFIT SUMMARY: NO ACUTE CHANGES TODAY. VSS. CHANGED DRESSING. STOPPED GIVING MIRILAX, PER PT REQUEST, ALSO MANY BM TODAY. STLL WAITING TO HEAR ABOUT PLACEMENT. PT RESTING WATCHING A MOVIE FOR MOST OF THE DAY. CALL LIGHT WITHIN REACH. WILL CONTINUE TO MONITOR UNTIL REPORT TO NIGHT RN.
--- NOTE | 2021-05-12 22:09 | NUR ---
PT. ALERT AWAKE AND ORIENTED. VSS. ASSESSMENT WNL. DENIES PAIN OR DISCOMFORT. DRESSING LEFT FOOT CDI. ASSISTED WITH FULL BED BATH AND FULL LINEN CHANGE. ASSISTED WITH CHANGING CLOTHING. TOLERATED WELL WITHOUT COMPLAINTS. EATING SNACKS AND DRINKING FLUIDS. MULTIPLE USE OF THE BEDPAN FOR SOFT BM AND CLEAR URINE.
--- NOTE | 2021-05-13 05:30 | NUR ---
PT HAS BEEN ALERT AND ORIENTED WHILE AWAKE THIS SURGICAL DEVICE SALES REPRESENTATIVE AND HAS SLEPT OFF AND ON. VSS. ASSESSMENT HAS BEEN WNL. DRESSING TO LEFT LEG CHANGED 05/12 AND IS CLEAN, DRY AND INTACT. SEVERAL VOIDS AND SOFT BM'S PER BEDPAN. RECEIVED 1 NORCO AT 2400 AND 5MG ROXONOL AT 0105 FOR GENERAL PAIN/BACK/SHOULDER PAIN. RELIEF ACHIEVED AND RESTED AFTER THIS. BED BATH/LINEN CHANGE DONE. EATING SNACKS AND DRINKING FLUIDS ON THIS SHIFT.
--- NOTE | 2021-05-13 16:48 | NUR ---
SHIFT SUMMARY: NO ACUTE CHANGES TODAY. VSS. PT IN GOOD SPIRITS TODAY. WATCHING MOVIES & TELLING STORIES. C/O PAIN THIS AFTERNOON. MEDICATED PER ORDER WITH NORCO (SEE EMAR) & REPOSITIONING FOR COMFORT. BED LOWEST LOCKED POSITION, CALL LIGHT WITHIN REACH, WILL CONTINUE TO MONITOR UNTIL REPORT TO NIGHT RN.
--- NOTE | 2021-05-13 20:57 | NUR ---
PT WITH COMPLAINTS OF PAIN. SHOULDERS,ARM,NECK,BACK,LEFT LEG. PTS LEFT LEG DRESSED WITH PRERNA WRAP,INTACT. PT UP ON BED [place], BM AND CONCENTRATED URINE NOTED.PERSONAL CARE PROVIDED. BEDDING CHANGED. ROOM PICKED UP, PT REQUESTING PAIN MEDS AND SNACK. PT MEDICATED.WARM BLANKETS PROVIDED, WILL CONTINUE TO MONITOR.
--- NOTE | 2021-05-14 09:36 | NUR ---
Assumed care of patient. Safety checks done. Pt is resting in bed, awake, alert, oriented. Pt recently medicated for pain by previous RN, states pain level is tolerable at this time. Pt repositioned in bed, no other needs at this time. Dressing to LLE C/D/I. Call light in reach.
--- NOTE | 2021-05-14 10:11 | NUR ---
05/14/21- pt [facility] accepted [facility]. Transportation has been set up for today at 2pm. Dr. Carter to put in orders and order stat COVID. -kjw
[2021-05-14 11:41] LABS: SARS-Cov-2 (COVID-19) PCR, MMC NEGATIVE (NEGATIVE)
[2021-05-14] MEDS ORDERED: Acetaminophen650 M1 PO (11:47)
[2021-05-14] MEDS ORDERED: ATROPINE SULFATE2 M1 SL (11:49)
[2021-05-14] MEDS ORDERED: DOCU100 PO (11:50)
[2021-05-14] MEDS ORDERED: Haloperidol1 MG PO (11:52)
[2021-05-14] MEDS ORDERED: Norco 5-325 Ta1 EACH PO (11:53)
[2021-05-14] MEDS ORDERED: GABA300 PO (11:54)
[2021-05-14] MEDS ORDERED: Ativan1 MG PO (11:56)
[2021-05-14] MEDS ORDERED: DULCOLAX400 MG/5 M PO (11:58)
[2021-05-14] MEDS ORDERED: MIRT15ST PO (11:58)
[2021-05-14] MEDS ORDERED: MORP20L SL (12:00)
[2021-05-14] MEDS ORDERED: ONDA4ODT PO (12:01)
[2021-05-14] MEDS ORDERED: TRANSDERM-SCOP1 EAC1 TD (12:02)
[2021-05-14] MEDS ORDERED: MIRALAX17 GM PO (12:02)
--- NOTE | 2021-05-14 12:37 | NUR ---
Safe hand-off report called to Alondra at [facility]. [facility] ambulance to pick patient up at 1400 today.
--- NOTE | 2021-05-14 15:24 | NUR ---
DISCHARGE NOTE: SAFE HAND-OFF REPORT CALLED TO FACILITY. PT DISCHARGED VIA [facility] WITH ALL PERSONAL BELONGINGS IN POCESSION, INCLUDING W/C. PT IN STABLE CONDITION, DISCHARGED TO [facility].
--- NOTE | 2021-05-14 19:31 | NUR ---
pt comfort able and getting care this morning.
== END 2021-05-14 14:40 | disposition hospice, home (50) | DRG 264 ==
LOC: ER 12:32 → ERHOLD 12:33 → MEDS 12:33 → PCU 03-08 16:44 → MEDS 03-08 21:04 → PCU 03-08 21:04 → MEDS 03-11 12:41 → ORSCIP 04-20 10:50
PROVIDERS: Emergency Medicine; Family Medicine; Internal Medicine; Orthopaedic Surgery; ADMIT Internal Medicine
PROC: B41DZZZ Fluoroscopy of Aorta and Bilateral Lower Extremity Arteries (ICD-10-PCS; 2021-03-08)
PROC: 0JBR0ZZ Excision of Left Foot Subcutaneous Tissue and Fascia, Open Approach (ICD-10-PCS; principal; 2021-03-08 14:15)
PROC: XW023S6 Introduction of COVID-19 Vaccine Dose 1 into Muscle, Percutaneous Approach, New Technology Group 6 (ICD-10-PCS; 2021-04-17)
DX: I77.9 Disorder of arteries and arterioles, unspecified (principal); E43 Unspecified severe protein-calorie malnutrition; I96 Gangrene, not elsewhere classified; Z68.1 Body mass index [BMI] 19.9 or less, adult; R64 Cachexia; L08.89 Other specified local infections of the skin and subcutaneous tissue; Z66 Do not resuscitate; Z20.822 Contact with and (suspected) exposure to COVID-19; Z23 Encounter for immunization; Z51.5 Encounter for palliative care; M48.02 Spinal stenosis, cervical region; R62.7 Adult failure to thrive; F10.20 Alcohol dependence, uncomplicated; D69.6 Thrombocytopenia, unspecified; F32.9 Major depressive disorder, single episode, unspecified; F03.90 Unspecified dementia, unspecified severity, without behavioral disturbance, psychotic disturbance, mood disturbance, and anxiety; M17.12 Unilateral primary osteoarthritis, left knee; S81.802A Unspecified open wound, left lower leg, initial encounter; M19.072 Primary osteoarthritis, left ankle and foot; D53.9 Nutritional anemia, unspecified; E83.42 Hypomagnesemia; E87.6 Hypokalemia; R33.9 Retention of urine, unspecified; Z71.41 Alcohol abuse counseling and surveillance of alcoholic; Z88.0 Allergy status to penicillin; Z88.8 Allergy status to other drugs, medicaments and biological substances; Z79.899 Other long term (current) drug therapy; X58.XXXA Exposure to other specified factors, initial encounter
CPT/HCPCS: 36247; 36415; 73590; 73630; 73701; 74018; 75625; 75716; 75774; 76700; 76937; 80048; 80053; 80202; 81003; 82565; 82607; 82746; 83605; 83735; 84100; 84132; 84478; 85025; 85651; 86141; 87040; 87070; 87075; 87077; 87186; 87205; 91303; 92526; 92610; 93925; 93970; 94640; 94760; 94762; 96374; 96375; 96376; 99152; 99153; 99284-25; A9270; C1751; C1760; C1769; C1887; C1894; G0378; J0690; J0696; J1100; J2250; J2370; J2405; J2704; J3010; J3370; J3475; J3480; J7030; J7042; J7050; J7060; Q9967; U0004

== ENCOUNTER 2021-08-25 23:42 | Emergency (ER) | payer OTHER, MEDICARE ==
[~2021-08-25] VITALS: Ht 167.6 cm; Wt 37.6 kg
[~2021-08-25 23:42] MED LIST changes: +ATROPINE SULFATE2 M1 SL; +Acetaminophen650 M1 PO; +Ativan1 MG PO; +DOCU100 PO; +DULCOLAX400 MG/5 M PO; +GABA300 PO; +Haloperidol1 MG PO; +MELO7.5; +MIRALAX17 GM PO; +MIRT15ST PO; +MOBIC15 MG PO; +MORP20L SL; +Norco 5-325 Ta1 EACH PO; +ONDA4ODT PO; +TRANSDERM-SCOP1 EAC1 TD
[2021-08-26 00:45] LABS: BASOPHILS ABSOLUTE AUTO 0.03 K/mm3 (0.00-0.23); BASOPHILS PERCENT AUTO 0 % (0-2); EOSINOPHILS ABSOLUTE AUTO 0.04 K/mm3 (0.00-0.68); EOSINOPHILS PERCENT AUTO 1 % (0-6); Hematocrit 40.1 % (33.0-51.0); IMMATURE GRAN ABSOLUTE AUTO 0.01 K/mm3 (0.00-0.10); IMMATURE GRAN PERCENT AUTO 0 % (0-1); LYMPHOCYTES ABSOLUTE AUTO 1.94 K/mm3 (0.84-5.20); LYMPHOCYTES PERCENT AUTO 25 % (21-46); MONOCYTES ABSOLUTE AUTO 0.77 K/mm3 (0.16-1.47); MONOCYTES PERCENT AUTO 10 % (4-13); Mean Corpuscular HGB 29.1 pg (26.0-34.0); Mean Corpuscular HGB Conc 32.4 g/dL (31.5-36.5); Mean Corpuscular Volume 90 fL (80-100); Mean Platelet Volume 8.7 fL (9.1-12.4); NEUTROPHILS ABSOLUTE AUTO 4.95 K/mm3 (1.96-9.15); NEUTROPHILS PERCENT AUTO 64 % (41-73); Platelet Count 316 K/mm3 (150-400); RDW Coefficient Variation 15.6 % (11.7-14.2); RDW Standard Deviation 51.5 fL (35.1-46.3); Red Blood Cell Count 4.46 M/mm3 (3.80-5.20); White Blood Cell Count 7.74 K/mm3 (4.00-11.30)
[2021-08-26 01:01] LABS: Anion Gap 5 mmol/L (6-16); Blood Urea Nitrogen 13 mg/dL (8-24); Bun/Creatinine Ratio 24.9 (12.0-20.0); CO2, Blood 28 mmol/L (21-32); Calcium, Blood 9.4 mg/dL (8.5-10.1); Chloride, Blood 107 mmol/L (98-108); Creatinine, Blood 0.52 mg/dL (0.40-1.00); Glomerular Filtration Rate >60 (60-); Glucose, Blood 103 mg/dL (70-99); Potassium, Blood 3.3 mmol/L (3.5-5.5); Sodium, Blood 140 mmol/L (136-145)
== END 2021-08-26 04:00 | disposition home or self-care (01) ==
LOC: ER 23:42
PROVIDERS: Student in an Organized Health Care Education/Training Program
DX: U07.1 COVID-19 (principal); F17.200 Nicotine dependence, unspecified, uncomplicated; Z88.1 Allergy status to other antibiotic agents; Z88.8 Allergy status to other drugs, medicaments and biological substances; Z79.899 Other long term (current) drug therapy
CPT/HCPCS: 71045; 80048; 85025; 93005; 93010; 99284-25; J7030

== ENCOUNTER 2022-02-06 01:19 | Day surgery (SDC) | payer OTHER | END 2022-02-11 23:33 | disposition home or self-care (01) | LOC: WOUND 01:19 | DX: L97.822 Non-pressure chronic ulcer of other part of left lower leg with fat layer exposed (principal); S81.802D Unspecified open wound, left lower leg, subsequent encounter; X58.XXXD Exposure to other specified factors, subsequent encounter; I87.2 Venous insufficiency (chronic) (peripheral); I73.9 Peripheral vascular disease, unspecified; R54 Age-related physical debility; F17.210 Nicotine dependence, cigarettes, uncomplicated; Z88.0 Allergy status to penicillin | CPT/HCPCS: 99406; A9270; G0463 ==

== ENCOUNTER 2022-02-13 04:18 | Day surgery (SDC) | payer OTHER | END 2022-02-13 23:05 | disposition home or self-care (01) | LOC: WOUND 04:18 | DX: L97.822 Non-pressure chronic ulcer of other part of left lower leg with fat layer exposed (principal); S81.802D Unspecified open wound, left lower leg, subsequent encounter; X58.XXXD Exposure to other specified factors, subsequent encounter; I87.2 Venous insufficiency (chronic) (peripheral); I73.9 Peripheral vascular disease, unspecified; R54 Age-related physical debility; Z72.0 Tobacco use | CPT/HCPCS: 99406; A9270; G0463 ==

== ENCOUNTER 2022-02-20 00:31 | Day surgery (SDC) | payer OTHER | END 2022-02-20 22:42 | disposition home or self-care (01) | LOC: WOUND 00:31 | DX: L97.822 Non-pressure chronic ulcer of other part of left lower leg with fat layer exposed (principal); S81.802D Unspecified open wound, left lower leg, subsequent encounter; X58.XXXD Exposure to other specified factors, subsequent encounter; I87.2 Venous insufficiency (chronic) (peripheral); I73.9 Peripheral vascular disease, unspecified; R54 Age-related physical debility; Z72.0 Tobacco use | CPT/HCPCS: A9270; G0463 ==

== ENCOUNTER 2022-02-27 01:32 | Day surgery (SDC) | payer OTHER | END 2022-02-27 22:44 | disposition home or self-care (01) | LOC: WOUND 01:32 | DX: L97.822 Non-pressure chronic ulcer of other part of left lower leg with fat layer exposed (principal); S81.802D Unspecified open wound, left lower leg, subsequent encounter; X58.XXXD Exposure to other specified factors, subsequent encounter; I87.2 Venous insufficiency (chronic) (peripheral); I73.9 Peripheral vascular disease, unspecified; R54 Age-related physical debility; Z72.0 Tobacco use | CPT/HCPCS: 99406; A9270; G0463 ==

== ENCOUNTER 2022-03-11 00:41 | Day surgery (SDC) | payer OTHER | END 2022-03-11 23:05 | disposition home or self-care (01) | LOC: WOUND 00:41 | DX: L97.822 Non-pressure chronic ulcer of other part of left lower leg with fat layer exposed (principal); I87.2 Venous insufficiency (chronic) (peripheral); I73.9 Peripheral vascular disease, unspecified; R54 Age-related physical debility; Z72.0 Tobacco use | CPT/HCPCS: 99406; G0463 ==

== ENCOUNTER 2022-03-18 06:49 | Day surgery (SDC) | payer OTHER | END 2022-03-18 23:26 | disposition home or self-care (01) | LOC: WOUND 06:49 | DX: L97.822 Non-pressure chronic ulcer of other part of left lower leg with fat layer exposed (principal); S81.802D Unspecified open wound, left lower leg, subsequent encounter; X58.XXXD Exposure to other specified factors, subsequent encounter; I87.2 Venous insufficiency (chronic) (peripheral); I73.9 Peripheral vascular disease, unspecified; R54 Age-related physical debility; Z72.0 Tobacco use | CPT/HCPCS: 99406; A9270; G0463 ==

== ENCOUNTER 2022-03-27 00:58 | Day surgery (SDC) | payer OTHER | END 2022-03-27 23:30 | disposition home or self-care (01) | LOC: WOUND 00:58 | DX: L97.822 Non-pressure chronic ulcer of other part of left lower leg with fat layer exposed (principal); I87.2 Venous insufficiency (chronic) (peripheral); R54 Age-related physical debility; Z72.0 Tobacco use | CPT/HCPCS: 99406; G0463 ==

== ENCOUNTER 2022-04-10 08:00 | Day surgery (SDC) | payer OTHER | END 2022-04-10 23:59 | disposition home or self-care (01) | LOC: WOUND 08:00 | DX: Z09 Encounter for follow-up examination after completed treatment for conditions other than malignant neoplasm (principal); I87.2 Venous insufficiency (chronic) (peripheral); I73.9 Peripheral vascular disease, unspecified; R54 Age-related physical debility; F03.90 Unspecified dementia, unspecified severity, without behavioral disturbance, psychotic disturbance, mood disturbance, and anxiety; Z72.0 Tobacco use | CPT/HCPCS: A9270; G0463 ==

== ENCOUNTER → 2022-06-13 | Outpatient (CLI) | payer OTHER ==
[2022-06-13 12:20] LABS: BASOPHILS ABSOLUTE AUTO 0.04 K/mm3 (0.00-0.23); BASOPHILS PERCENT AUTO 1 % (0-2); EOSINOPHILS PERCENT AUTO 2 % (0-6); Hematocrit 42.5 % (33.0-51.0); Hemoglobin 14.3 g/dL (11.5-16.0); IMMATURE GRAN ABSOLUTE AUTO 0.01 K/mm3 (0.00-0.10); IMMATURE GRAN PERCENT AUTO 0 % (0-1); LYMPHOCYTES PERCENT AUTO 26 % (21-46); MONOCYTES ABSOLUTE AUTO 0.74 K/mm3 (0.16-1.47); MONOCYTES PERCENT AUTO 12 % (4-13); Mean Corpuscular HGB 31.8 pg (26.0-34.0); Mean Corpuscular HGB Conc 33.6 g/dL (31.5-36.5); Mean Corpuscular Volume 95 fL (80-100); Mean Platelet Volume 9.4 fL (9.1-12.4); NEUTROPHILS ABSOLUTE AUTO 3.72 K/mm3 (1.96-9.15); NEUTROPHILS PERCENT AUTO 60 % (41-73); Platelet Count 328 K/mm3 (150-400); RDW Coefficient Variation 12.1 % (11.7-14.2); RDW Standard Deviation 42.4 fL (35.1-46.3); Red Blood Cell Count 4.49 M/mm3 (3.80-5.20); White Blood Cell Count 6.21 K/mm3 (4.00-11.30)
[2022-06-13 12:42] LABS: Alanine Aminotransfer (ALT/SGP 33 U/L (12-78); Albumin, Blood 3.5 g/dL (3.4-5.0); Albumin/Globulin Ratio 0.8 (0.8-1.8); Alk Phos 90 U/L (50-136); Anion Gap 7 mmol/L (6-16); Aspartate Aminotrans (AST/SGOT 25 U/L (12-37); Bilirubin, Total 0.2 mg/dL (0.1-1.0); Blood Urea Nitrogen 18 mg/dL (8-24); Bun/Creatinine Ratio 26.2 (12.0-20.0); CHOL/HDL RATIO 3.7; CO2, Blood 31 mmol/L (21-32); Calcium, Blood 8.9 mg/dL (8.5-10.1); Chloride, Blood 97 mmol/L (98-108); Cholesterol 242 mg/dL (50-200); Creatinine, Blood 0.69 mg/dL (0.40-1.00); Globulin, Blood 4.4 g/dL (2.2-4.0); Glomerular Filtration Rate 95 (60-); Glucose, Blood 97 mg/dL (70-99); HDL Cholesterol 66 mg/dL (>39); LDL/HDL RATIO 2.3; Low Density Lipoprotein Chol 154 mg/dL (0-110); Potassium, Blood 4.1 mmol/L (3.5-5.5); Sodium, Blood 135 mmol/L (136-145); Thyroid Stimulating Hormone 0.693 uIU/mL (0.360-4.800); Total Protein, Blood 7.9 g/dL (6.4-8.2); Triglycerides 109 mg/dL (30-160); Very Low Density Lipoprot Chol 21 mg/dL (6-32)
== END | disposition home or self-care (01) ==
LOC: LAB 08:30 → LAB SHORT 08:30
PROVIDERS: Family Medicine
DX: Z13.6 Encounter for screening for cardiovascular disorders (principal); E04.2 Nontoxic multinodular goiter; R73.01 Impaired fasting glucose
CPT/HCPCS: 80053; 80061; 83036; 84443; 85025